=== PATIENT | female | born 1940 | race Caucasian/White ===

== ENCOUNTER 2017-09-22 22:46 | Inpatient (IN) | payer MEDICARE ==
[2017-09-23 01:27] LABS: HEMATOCRIT 39.4 % (36.0-47.0); HEMOGLOBIN 13.6 g/dL (12.0-15.5); MEAN CORPUSCULAR HEMOGLOBIN 31.9 pg (27.0-33.4); MEAN CORPUSCULAR HGB CONC 34.6 g/dL (32.0-36.0); MEAN CORPUSCULAR VOLUME 92 fl (80-97); PLATELET COUNT 199 10^3/uL (150-450); RED BLOOD COUNT 4.28 10^6/uL (3.72-5.28); RED CELL DISTRIBUTION WIDTH 12.7 % (11.5-14.0); WHITE BLOOD COUNT 21.3 10^3/uL (4.0-10.5)
[2017-09-23 01:30] LABS: INTERNATIONAL RATION (INR) 1.06; PROTHROMBIN TIME 14.3 SEC (11.4-15.4)
[2017-09-23 01:41] LABS: ALANINE AMINOTRANSFERASE 30 U/L (9-52); ALBUMIN 3.9 g/dL (3.5-5.0); ALKALINE PHOSPHATASE 72 U/L (38-126); ANION GAP 15 (5-19); ASPARTATE AMINO TRANSFERASE 19 U/L (14-36); BILIRUBIN,DIRECT 0.4 mg/dL (0.0-0.4); BILIRUBIN,TOTAL 0.7 mg/dL (0.2-1.3); BLOOD UREA NITROGEN 19 mg/dL (7-20); CALCIUM 9.2 mg/dL (8.4-10.2); CARBON DIOXIDE 26 mmol/L (22-30); CHLORIDE 96 mmol/L (98-107); GLUCOSE 126 mg/dL (75-110); POTASSIUM 3.4 mmol/L (3.6-5.0); SODIUM 136.5 mmol/L (137-145); TOTAL PROTEIN 6.3 g/dL (6.3-8.2)
[2017-09-23 01:45] LABS: ABSOLUTE LYMPHOCYTES# (MANUAL) 2.1 10^3/uL (0.5-4.7); ABSOLUTE MONOCYTES # (MANUAL) 1.9 10^3/uL (0.1-1.4); BASOPHILS % (MANUAL) 0 % (0-2); EOSINOPHILS % (MANUAL) 1 % (0-6); LYMPHOCYTES % (MANUAL) 10 % (13-45); MONOCYTES % (MANUAL) 9 % (3-13); SEGMENTED NEUTROPHILS % (MAN) 80 % (42-78); TOTAL CELLS COUNTED 100
[2017-09-23] MEDS ORDERED: DIPHENHYDRAMINE HCL 25 MG CAPSULE PO ONE (01:45)
[2017-09-23] MEDS ORDERED: FAMOTIDINE 20 MG TABLET PO ONE (01:45)
[2017-09-23] MEDS ORDERED: PREDNISONE 20 MG TABLET PO ONE (01:45)
[2017-09-23 01:46] LABS: PLATELET COMMENT ADEQUATE; TOXIC GRANULATION SLIGHT
--- NOTE | 2017-09-23 01:49 | ER Document Report ---
ED General - General Chief Complaint: Rash Stated Complaint: RASH Time Seen by Provider: 09/22/17 23:47 Mode of Arrival: Ambulatory Information source: Patient, Relative TRAVEL OUTSIDE OF THE [place] IN LAST 30 DAYS: No - HPI Notes: Patient is a 77-year-old female history of dementia and presents to the emergency department with report of a progressive rash on her body that she has had for the last 4-5 days with mild itching. The patient has had no recent medication changes, but she did eat a large quantity of chocolate on Mother's Day and she has been outside in the yard for an extended period of time, although had most of the areas covered with long pants. The patient has had no mucous membrane lesions or conjunctival erythema. The patient denies any difficulty breathing or fever or cough or congestion or chest pain or nausea or vomiting or diarrhea. No prior skin reactions. No recent insect bites. No exposures to anyone else with a similar rash. Medications quinapril and hydrochlorothiazide, and she has been on these medications for over 4 months. Past Medical History - General Information source: Patient, Parent - Social History Smoking Status: Never Smoker Frequency of alcohol use: None Drug Abuse: None Lives with: Family Family History: None - Patient is a retired nurse. Review of Systems - Review of Systems Notes: REVIEW OF SYSTEMS: CONSTITUTIONAL : Denies fever, chills, or sweats. EENT: Denies eye, ear, throat, or mouth pain or symptoms. Denies nasal or sinus congestion or discharge. Denies throat, tongue, or mouth swelling or difficulty swallowing. CARDIOVASCULAR: Denies chest pain. Denies palpitations or racing or irregular heart beat. Denies ankle edema. RESPIRATORY: Denies cough, cold, or chest congestion. Denies shortness of breath, difficulty breathing, or wheezing. GASTROINTESTINAL: Denies abdominal pain or distention. Denies nausea, vomiting , or diarrhea. Denies blood in vomitus, stools, or per rectum. Denies black, tarry stools. Denies constipation. GENITOURINARY: Denies difficulty urinating, painful urination, burning, frequency, blood in urine, or discharge. FEMALE GENITOURINARY: Denies vaginal bleeding, heavy or abnormal periods, irregular periods. Denies vaginal discharge or odor. MUSCULOSKELETAL: Denies back or neck pain or stiffness. Denies joint pain or swelling. SKIN: No skin abscesses. HEMATOLOGIC : Denies easy bruising or bleeding. LYMPHATIC: Denies swollen, enlarged glands. NEUROLOGICAL: Denies confusion or altered mental status. Denies passing out or loss of consciousness. Denies dizziness or lightheadedness. Denies headache. Denies weakness or paralysis or loss of use of either side. Denies problems with gait or speech. Denies sensory loss, numbness, or tingling. Denies seizures. PSYCHIATRIC: Denies anxiety or stress. Denies depression, suicidal ideation, or homicidal ideation. ALL OTHER SYSTEMS REVIEWED AND NEGATIVE. Dictation was performed using [employer] voice recognition software Physical Exam - Vital signs Vitals: Temp Pulse BP Pulse Ox 98.8 F 84 125/44 L 99 09/22/17 23:09 09/22/17 23:09 09/22/17 23:09 09/22/17 23:09 - Notes Notes: PHYSICAL EXAMINATION: GENERAL: Well-appearing, well-nourished and in no acute distress. HEAD: Atraumatic, normocephalic. EYES: Pupils equal round and reactive to light, extraocular movements intact, conjunctiva are normal. ENT: Nares patent, oropharynx clear without exudates. Moist mucous membranes. NECK: Normal range of motion, supple without lymphadenopathy LUNGS: Breath sounds clear to auscultation bilaterally and equal. No wheezes rales or rhonchi. HEART: Regular rate and rhythm without murmurs ABDOMEN: Soft, nontender, nondistended abdomen. No guarding, no rebound. No masses appreciated. Female : deferred Musculoskeletal: Normal range of motion, no pitting or edema. No cyanosis. NEUROLOGICAL: Cranial nerves grossly intact. Normal speech, normal gait. Normal sensory, motor exams patient is somewhat confused to the year, and her daughter reports this is her baseline. PSYCH: Normal mood, normal affect. SKIN: Warm, Dry, normal turgor, minimally blanchable skin rash on the face trunk and extremities of a maculopapular skin eruption. There are no distal splinter lesions or gross petechial lesions. There is no cellulitis. There is no obvious or urticaria. There is no evidence for abscess or significant breakdown. The patient is seen minimally scratching at the areas. Course - Re-evaluation Re-evalutation: 09/23/17 01:51 Patient was given prednisone, Benadryl and Pepcid. Question allergic reaction, but the diffuse widespread rash is of concern. Lab studies including CBC PT/INR and a CMP and lactic acid are ordered. Also a urine specimen is ordered. There is no clinical suggestion for Liang-Anoop syndrome or obvious TTP/ITP , with no distal splinter lesions or mucous membrane lesions. Patient has stable blood pressure. One questions reaction to quinapril or hydrochlorothiazide. There is no evidence for angioedema or respiratory compromise. WBC count elevated. Concern for infection vs early sepsis. Blood cultures taken. Discussed with pt and family and they were in agreement with admission for further eval and mgmt. Discussed with Hospitalist Dr. Ortiz, who agreed to admit the pt for further eval and mgmt. 09/23/17 02:14 - Vital Signs Vital signs: Temp Pulse Resp BP Pulse Ox 98.8 F 84 125/44 L 99 09/22/17 23:09 09/22/17 23:09 09/22/17 23:09 09/22/17 23:09 - Laboratory Result Diagrams: 09/23/17 01:12 09/23/17 01:12 Laboratory results interpreted by me: 09/23/17 09/23/17 09/23/17 01:12 01:12 01:50 WBC 21.3 H Seg Neuts % (Manual) 80 H Lymphocytes % (Manual) 10 L Abs Neuts (Manual) 17.0 H Abs Monocytes (Manual) 1.9 H Sodium 136.5 L Potassium 3.4 L Chloride 96 L Glucose 126 H Urine Urobilinogen 2.0 H Ur Leukocyte Esterase SMALL H Critical Care Note - Critical Care Note Total time excluding time spent on procedures (mins): 37 Discharge - Discharge Clinical Impression: Allergic reaction Qualifiers: Encounter type: initial encounter Qualified Code(s): T78.40XA - Allergy, unspecified, initial encounter Condition: Stable Disposition: ADMITTED OBSERVATION Admitting Provider: Hospitalist Unit Admitted: Medical Floor
[2017-09-23 01:59] LABS: APPEARANCE,URINE CLEAR; BILIRUBIN,URINE NEGATIVE (NEGATIVE); COLOR,URINE YELLOW; GLUCOSE, URINE NEGATIVE (NEGATIVE); KETONES,URINE NEGATIVE (NEGATIVE); LEUKOCYTE ESTERASE,URINE SMALL (NEGATIVE); NITRITE,URINE NEGATIVE (NEGATIVE); PROTEIN,URINE NEGATIVE (NEGATIVE); URINE SPECIFIC GRAVITY 1.008
[2017-09-23] MEDS ORDERED: ACETAMINOPHEN 325 MG TABLET PO PRN (02:22)
--- NOTE | 2017-09-23 02:41 | PDOC H&P ---
History of Present Illness History of Present Illness: CHINTAN PEGUERO is a 77 year old female presents with 3 days history of diffuse rash. The rash is not itching and is not associated with fever. The rash is diffuse petechial nonblanching rash which involves her palms and soles. There is no mucous membrane or conjunctival involvement. Patient denies cramping or insect bite. She takes SELENE inhibitor and hydrochlorothiazide for her hypertension. No history of shortness of breath, congestion, tongue swelling, nausea, vomiting or diarrhea. No urinary complaints. Her blood work is remarkable for leukocytosis of 21,000. Past Medical History Cardiac Medical History: Reports: Hypertension Social History Lives with: Family Smoking Status: Never Smoker Frequency of Alcohol Use: None Hx Recreational Drug Use: No Drugs: None - Advance Directive Resuscitation Status: Full Code Family History Family History: None Parental Family History Reviewed: Yes Children Family History Reviewed: Yes Sibling(s) Family History Reviewed.: Yes Review of Systems Constitutional: PRESENT: as per HPI Eyes: PRESENT: as per HPI Cardiovascular: PRESENT: as per HPI Respiratory: PRESENT: as per HPI Gastrointestinal: PRESENT: as per HPI Neurological: PRESENT: as per HPI Psychiatric: PRESENT: as per HPI Physical Exam Vital Signs: Temp Pulse Resp BP Pulse Ox 98.8 F 84 125/44 L 99 09/22/17 23:09 09/22/17 23:09 09/22/17 23:09 09/22/17 23:09 Intake & Output 09/21/17 09/22/17 09/23/17 06:59 06:59 06:59 Weight 66.3 kg General appearance: PRESENT: no acute distress Head exam: PRESENT: atraumatic, normocephalic Eye exam: PRESENT: conjunctiva pink, EOMI, PERRLA. ABSENT: scleral icterus Respiratory exam: PRESENT: clear to auscultation cipriano. ABSENT: rales, rhonchi, wheezes Cardiovascular exam: PRESENT: RRR. ABSENT: diastolic murmur, rubs, systolic murmur GI/Abdominal exam: PRESENT: normal bowel sounds, soft. ABSENT: distended, guarding, mass, organolmegaly, rebound, tenderness Neurological exam: PRESENT: alert, awake Psychiatric exam: PRESENT: normal mood Skin exam: PRESENT: other - Diffuse nonblanching petechial rash which involves also the palms and soles. Results Laboratory Results: 09/23/17 01:12 09/23/17 01:12 09/23/17 09/23/17 09/23/17 01:12 01:12 01:12 WBC 21.3 H RBC 4.28 Hgb 13.6 Hct 39.4 MCV 92 MCH 31.9 MCHC 34.6 RDW 12.7 Plt Count 199 Seg Neutrophils % Not Reportable Lymphocytes % Not Reportable Monocytes % Not Reportable Eosinophils % Not Reportable Basophils % Not Reportable Absolute Neutrophils Not Reportable Absolute Lymphocytes Not Reportable Absolute Monocytes Not Reportable Absolute Eosinophils Not Reportable Absolute Basophils Not Reportable Sodium 136.5 L Potassium 3.4 L Chloride 96 L Carbon Dioxide 26 Anion Gap 15 BUN 19 Creatinine 0.86 Est GFR ( Amer) > 60 Est GFR (Non-Af Amer) > 60 Glucose 126 H Lactic Acid 1.0 Calcium 9.2 Total Bilirubin 0.7 AST 19 ALT 30 Alkaline Phosphatase 72 Total Protein 6.3 Albumin 3.9 Urine Color Urine Appearance Urine pH Ur Specific Gobles Urine Protein Urine Glucose (UA) Urine Ketones Urine Blood Urine Nitrite Ur Leukocyte Esterase Urine WBC (Auto) Urine RBC (Auto) 09/23/17 01:50 WBC RBC Hgb Hct MCV MCH MCHC RDW Plt Count Seg Neutrophils % Lymphocytes % Monocytes % Eosinophils % Basophils % Absolute Neutrophils Absolute Lymphocytes Absolute Monocytes Absolute Eosinophils Absolute Basophils Sodium Potassium Chloride Carbon Dioxide Anion Gap BUN Creatinine Est GFR ( Amer) Est GFR (Non-Af Amer) Glucose Lactic Acid Calcium Total Bilirubin AST ALT Alkaline Phosphatase Total Protein Albumin Urine Color YELLOW Urine Appearance CLEAR Urine pH 6.0 Ur Specific Gobles 1.008 Urine Protein NEGATIVE Urine Glucose (UA) NEGATIVE Urine Ketones NEGATIVE Urine Blood NEGATIVE Urine Nitrite NEGATIVE Ur Leukocyte Esterase SMALL H Urine WBC (Auto) 5 Urine RBC (Auto) 0 Assessment & Plan - Diagnosis (1) Petechial rash Is this a current diagnosis for this admission?: Yes Plan: Etiology unclear. Most probably adverse drug reaction. We will DC her SELENE inhibitor and hydrochlorothiazide. I started her on hydralazine. Benadryl and prednisone (2) Hypertension Is this a current diagnosis for this admission?: Yes Plan: Hydralazine 50 mg p.o. 3 times daily (3) Dementia Qualifiers: Dementia behavioral disturbance: with behavioral disturbance Is this a current diagnosis for this admission?: Yes Plan: Continue her home medication - Time Critical Time spent with patient: 25-34 minutes
[2017-09-23] MEDS ORDERED: NORMAL SALINE 1000 ML 1,000 ML IV PRN (02:42)
[2017-09-23] MEDS ORDERED: HYDRALAZINE HCL 50 MG TABLET PO ONE (02:45)
[2017-09-23 04:50] LABS: HEMATOCRIT 37.1 % (36.0-47.0); MEAN CORPUSCULAR HEMOGLOBIN 31.9 pg (27.0-33.4); MEAN CORPUSCULAR HGB CONC 34.9 g/dL (32.0-36.0); MEAN CORPUSCULAR VOLUME 91 fl (80-97); PLATELET COUNT 208 10^3/uL (150-450); RED BLOOD COUNT 4.07 10^6/uL (3.72-5.28); RED CELL DISTRIBUTION WIDTH 12.8 % (11.5-14.0); WHITE BLOOD COUNT 19.6 10^3/uL (4.0-10.5)
[2017-09-23 05:06] LABS: ANION GAP 12 (5-19); BLOOD UREA NITROGEN 16 mg/dL (7-20); CALCIUM 8.9 mg/dL (8.4-10.2); CARBON DIOXIDE 26 mmol/L (22-30); CHLORIDE 95 mmol/L (98-107); GLUCOSE 134 mg/dL (75-110); POTASSIUM 3.4 mmol/L (3.6-5.0); SODIUM 132.7 mmol/L (137-145)
[2017-09-23] MEDS: LANSOPRAZOLE 30 MG TAB.RAP.DR PO SCH (05:41)
[2017-09-23] MEDS: PREDNISONE 20 MG TABLET PO SCH (08:53)
[2017-09-23] MEDS: ENOXAPARIN SODIUM INJ 40 MG/0.4 ML DISP.SYRIN SUBCUT SCH (09:22)
--- NOTE | 2017-09-23 11:21 | PDOC PROGRESS REPORT ---
Subjective Progress Note for:: 09/23/17 Subjective:: Patient does not look critically ill She does not have a fever ; the generalized rash is persistent It is not very pruritic Patient is extremely confused but awake and appears very comfortable Reason For Visit: DIFFUSE SKIN RASH, LEUKOCYTOSIS Physical Exam Vital Signs: Temp Pulse Resp BP Pulse Ox 98.1 F 98 16 116/76 97 09/23/17 07:15 09/23/17 07:15 09/23/17 07:15 09/23/17 07:15 09/23/17 07:15 She is awake confused Skin there is a generalized petechial rash involving the whole body Therapeutic daily on non-palpable macular lesions that are confluent red Particular rash also involves palms and soles Patient has no palpable adenopathies Pupils are PERRLA extraocular motor intact nonicteric Neck supple no nodes no bruits Chest heart regular rhythm grade 2/6 murmur Lungs are clear Abdomen is soft nontender no organomegaly normal bowel sounds Extremities no edema Rash diffuse petechial rash as described above Results Laboratory Results: 09/23/17 04:40 09/23/17 04:40 09/23/17 09/23/17 04:40 04:40 WBC 19.6 H RBC 4.07 Hgb 13.0 Hct 37.1 MCV 91 MCH 31.9 MCHC 34.9 RDW 12.8 Plt Count 208 Sodium 132.7 L Potassium 3.4 L Chloride 95 L Carbon Dioxide 26 Anion Gap 12 BUN 16 Creatinine 0.74 Est GFR ( Amer) > 60 Est GFR (Non-Af Amer) > 60 Glucose 134 H Calcium 8.9 Assessment & Plan - Diagnosis (1) Dementia Qualifiers: Dementia behavioral disturbance: with behavioral disturbance Is this a current diagnosis for this admission?: Yes (2) Hypertension Qualifiers: Hypertension type: essential hypertension Qualified Code(s): I10 - Essential (primary) hypertension Is this a current diagnosis for this admission?: Yes (3) Petechial rash Is this a current diagnosis for this admission?: Yes Plan: 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
[2017-09-23] MEDS ORDERED: HYDRALAZINE HCL 50 MG TABLET PO SCH ×3 (11:45→14:00)
[2017-09-23] MEDS ORDERED: HYDRALAZINE HCL 25 MG TABLET PO ONE (12:30)
[2017-09-23] MEDS: CEFTRIAXONE 2 GM/D5W RTU 2 GM/50 ML RTUPB IV SCH (14:21)
[2017-09-23] MEDS ORDERED: HALOPERIDOL LACTATE INJ 5 MG/1 ML VIAL ONE (19:40)
[2017-09-23] MEDS ORDERED: HALOPERIDOL LACTATE INJ 5 MG/1 ML VIAL IM ONE (20:00)
[2017-09-23] MEDS: HYDRALAZINE HCL 25 MG TABLET PO SCH (21:38)
[2017-09-24 05:15] LABS: HEMOGLOBIN 13.3 g/dL (12.0-15.5); MEAN CORPUSCULAR HGB CONC 34.9 g/dL (32.0-36.0); MEAN CORPUSCULAR VOLUME 92 fl (80-97); PLATELET COUNT 231 10^3/uL (150-450); RED BLOOD COUNT 4.15 10^6/uL (3.72-5.28); RED CELL DISTRIBUTION WIDTH 12.7 % (11.5-14.0); WHITE BLOOD COUNT 22.6 10^3/uL (4.0-10.5)
[2017-09-24 05:36] LABS: ANION GAP 14 (5-19); BLOOD UREA NITROGEN 12 mg/dL (7-20); CALCIUM 9.8 mg/dL (8.4-10.2); CARBON DIOXIDE 25 mmol/L (22-30); CHLORIDE 102 mmol/L (98-107); GLUCOSE 105 mg/dL (75-110); POTASSIUM 3.5 mmol/L (3.6-5.0); SODIUM 140.6 mmol/L (137-145)
[2017-09-24] MEDS: LANSOPRAZOLE 30 MG TAB.RAP.DR PO SCH (06:13)
[2017-09-24] MEDS: PREDNISONE 20 MG TABLET PO SCH (09:54)
[2017-09-24] MEDS: ENOXAPARIN SODIUM INJ 40 MG/0.4 ML DISP.SYRIN SUBCUT SCH (09:55)
--- NOTE | 2017-09-24 11:34 | PDOC PROGRESS REPORT ---
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 Skin Biopsy requested. Physical Exam Vital Signs: Temp Pulse Resp BP Pulse Ox 98.3 F 72 20 114/54 L 98 09/24/17 07:23 09/24/17 07:23 09/24/17 07:23 09/24/17 07:23 09/24/17 07:23 Intake & Output 09/23/17 09/24/17 09/25/17 06:59 06:59 06:59 Intake Total 1985 Balance 1985 General appearance: PRESENT: no acute distress, other - confused Skin exam: PRESENT: other - diffuse maculopapular rash face to extremity sparing palms Results Laboratory Results: 09/24/17 04:41 09/24/17 04:41 09/23/17 09/24/17 09/24/17 11:40 04:41 04:41 WBC 22.6 H RBC 4.15 Hgb 13.3 Hct 38.0 MCV 92 MCH 32.0 MCHC 34.9 RDW 12.7 Plt Count 231 Sodium 140.6 Potassium 3.5 L Chloride 102 Carbon Dioxide 25 Anion Gap 14 BUN 12 Creatinine 0.54 Est GFR ( Amer) > 60 Est GFR (Non-Af Amer) > 60 Glucose 105 Calcium 9.8 C-Reactive Protein 51.9 H Assessment & Plan - Plan Summary Plan Summary: A/ Leukocytosis Diffuse skin rash 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
[2017-09-24] MEDS: HYDRALAZINE HCL 25 MG TABLET PO SCH ×2 (12:53→21:45)
[2017-09-24] MEDS: CEFTRIAXONE 2 GM/D5W RTU 2 GM/50 ML RTUPB IV SCH (13:58)
--- NOTE | 2017-09-24 14:18 | PDOC PROGRESS REPORT ---
Subjective Progress Note for:: 09/24/17 Subjective:: Admitted with a diffuse erythematous rash with suspicion of a leukocytoclastic vasculitis Reason For Visit: PETECHIAL RASH,LEUKOCYTOSIS,DEMENTIA Physical Exam Vital Signs: Temp Pulse Resp BP Pulse Ox 97.5 F 69 20 126/59 H 98 09/24/17 11:35 09/24/17 11:35 09/24/17 11:35 09/24/17 11:35 09/24/17 11:35 Intake & Output 09/23/17 09/24/17 09/25/17 06:59 06:59 06:59 Intake Total 1985 Balance 1985 General appearance: PRESENT: no acute distress, well-developed Head exam: PRESENT: atraumatic Respiratory exam: PRESENT: clear to auscultation cipriano. ABSENT: rales, rhonchi, wheezes Cardiovascular exam: PRESENT: RRR, +S1, +S2, systolic murmur GI/Abdominal exam: PRESENT: normal bowel sounds, soft. ABSENT: distended, guarding, mass, organolmegaly, rebound, tenderness Rectal exam: PRESENT: deferred Musculoskeletal exam: PRESENT: ambulatory, full ROM Neurological exam: PRESENT: alert, other - confused Skin exam: PRESENT: erythema, rash - generalized maculopapular. ABSENT: urticaria, vesicles Results Laboratory Results: 09/24/17 04:41 09/24/17 04:41 09/24/17 09/24/17 04:41 04:41 WBC 22.6 H RBC 4.15 Hgb 13.3 Hct 38.0 MCV 92 MCH 32.0 MCHC 34.9 RDW 12.7 Plt Count 231 Sodium 140.6 Potassium 3.5 L Chloride 102 Carbon Dioxide 25 Anion Gap 14 BUN 12 Creatinine 0.54 Est GFR ( Amer) > 60 Est GFR (Non-Af Amer) > 60 Glucose 105 Calcium 9.8 Assessment & Plan - Diagnosis (1) Hypertension Qualifiers: Hypertension type: essential hypertension Qualified Code(s): I10 - Essential (primary) hypertension Is this a current diagnosis for this admission?: Yes (2) Hyponatremia Is this a current diagnosis for this admission?: Yes Plan: Sodium has corrected with normal saline (3) Leukocytosis Is this a current diagnosis for this admission?: Yes Plan: Patient is on ceftriaxone empirically. There is no specific source of infection at this time. He is also on steroids presumably for possible allergic dermatitis (4) Petechial rash Is this a current diagnosis for this admission?: Yes Plan: Generalized erythematous diffuse rash involving extremities as well as anterior abdominal wall and face Rheumatoid factor is negative but CRP is slightly elevated and ESR is within normal. 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 She also has normal liver function test and so the possibility of hepatitis C is low and there is no evidence of nephritis with negative proteinuria. Patient is scheduled for a skin biopsy tomorrow and hopefully shed some light as to the etiology of her generalized rash WBC is worse likely from the steroids
[2017-09-25] MEDS: LANSOPRAZOLE 30 MG TAB.RAP.DR PO SCH (06:30)
[2017-09-25] MEDS: NORMAL SALINE 1000 ML 1,000 ML IV PRN (06:45)
[2017-09-25] MEDS: HYDRALAZINE HCL 25 MG TABLET PO SCH ×2 (10:14→22:14)
[2017-09-25] MEDS: PREDNISONE 20 MG TABLET PO SCH (10:14)
[2017-09-25] MEDS: ENOXAPARIN SODIUM INJ 40 MG/0.4 ML DISP.SYRIN SUBCUT SCH (10:14)
[2017-09-25] MEDS: CEFTRIAXONE 2 GM/D5W RTU 2 GM/50 ML RTUPB IV SCH (13:44)
--- NOTE | 2017-09-25 15:26 | Operative Report ---
Operative Report DATE OF SURGERY: 09/25/17 PREOPERATIVE DIAGNOSIS: Widespread urticarial rash POSTOPERATIVE DIAGNOSIS: Same OPERATION: Full-thickness excisional skin biopsy right shoulder SURGEON: GUALBERTO MAXWELL ANESTHESIA: Local TISSUE REMOVED OR ALTERED: Right skin biopsy; bisected and submitted to pathology in 2 containers COMPLICATIONS: None ESTIMATED BLOOD LOSS: Minimal INTRAOPERATIVE FINDINGS: See below PROCEDURE: Consent was provided by the patient's granddaughter due to the patient having dementia. Right shoulder was exposed, suitable site for biopsy chosen. Skin prep with Betadine and anesthetized 1% plain lidocaine. Surgical plan surgical timeout conducted. Small transversely oriented elliptical incision was made with a 15 blade. It was approximately 1.5 cm long. The specimen was excised down to the subcutaneous tissue. The specimen was bisected, with fragments submitted in separate containers 1 with saline 1 without saline. Closed with interrupted 3-0 Ethilon suture. Benzoin Steri- Strips applied. Postop procedure I spoke with primary care team as well as Dr. Norman, pathologist, about processing the specimen. Suture can be removed in approximately 10 days.
[2017-09-25] MEDS: DIPHENHYDRAMINE HCL 25 MG CAPSULE PO PRN (16:19)
--- NOTE | 2017-09-25 16:29 | PDOC PROGRESS REPORT ---
Subjective Progress Note for:: 09/25/17 Subjective:: Admitted with a diffuse erythematous rash with suspicion of a leukocytoclastic vasculitis She is status post skin biopsy today. Echocardiogram is also pending today Reason For Visit: PETECHIAL RASH,LEUKOCYTOSIS,DEMENTIA Physical Exam Vital Signs: Temp Pulse Resp BP Pulse Ox 98.0 F 72 16 113/90 H 95 09/25/17 12:12 09/25/17 12:12 09/25/17 12:12 09/25/17 12:12 09/25/17 12:12 Intake & Output 09/24/17 09/25/17 09/26/17 06:59 06:59 06:59 Intake Total 1985 415 Balance 1985 415 Weight 66.3 kg General appearance: PRESENT: no acute distress, well-developed, well-nourished Head exam: PRESENT: atraumatic, normocephalic Eye exam: PRESENT: conjunctiva pink. ABSENT: scleral icterus Ear exam: PRESENT: normal external ear exam Mouth exam: PRESENT: moist, tongue midline Neck exam: ABSENT: carotid bruit, JVD, lymphadenopathy, thyromegaly Respiratory exam: PRESENT: clear to auscultation cipriano. ABSENT: rales, rhonchi, wheezes Cardiovascular exam: PRESENT: RRR. ABSENT: diastolic murmur, rubs, systolic murmur Pulses: PRESENT: normal dorsalis pedis pul Vascular exam: PRESENT: normal capillary refill GI/Abdominal exam: PRESENT: normal bowel sounds, soft. ABSENT: distended, guarding, mass, organolmegaly, rebound, tenderness Rectal exam: PRESENT: deferred Extremities exam: PRESENT: full ROM. ABSENT: calf tenderness, clubbing, pedal edema Neurological exam: PRESENT: alert, awake, oriented to situation, CN II-XII grossly intact. ABSENT: motor sensory deficit Psychiatric exam: PRESENT: appropriate affect, normal mood. ABSENT: homicidal ideation, suicidal ideation Skin exam: PRESENT: dry, erythema - Generalized, intact, rash - Papular rash, warm. ABSENT: cyanosis, urticaria, vesicles Results Laboratory Results: 09/24/17 04:41 09/24/17 04:41 Assessment & Plan - Diagnosis (1) Hypertension Qualifiers: Hypertension type: essential hypertension Qualified Code(s): I10 - Essential (primary) hypertension Is this a current diagnosis for this admission?: Yes Plan: Controlled (2) Hyponatremia Is this a current diagnosis for this admission?: Yes Plan: Sodium has corrected with normal saline (3) Leukocytosis Is this a current diagnosis for this admission?: Yes Plan: We will recheck labs in a.m. She is on empiric antibiotics (4) Petechial rash Is this a current diagnosis for this admission?: Yes Plan: Continue local measures (5) Hypokalemia Is this a current diagnosis for this admission?: Yes Plan: Replaced - Time Time Spent with patient: 15-24 minutes Medications reviewed and adjusted accordingly: Yes Anticipated discharge: SNF Within: within 48 hours - Inpatient Certification Based on my medical assessment, after consideration of the patient's comorbidities, presenting symptoms, or acuity I expect that the services needed warrant INPATIENT care.: Yes Medical Necessity: Need for IV Antibiotics
--- NOTE | 2017-09-25 16:54 | XCELERA REPORT ---
[address] [address] Transthoracic Echocardiogram Report Name: CHINTAN PEGUERO Age: 77 yrs Gender: Female : 1940 Patient Status: Inpatient Patient Location: [address] [place] [address] Study Date: 09/25/2017 11:21 AM Procedure: A two-dimensional transthoracic echocardiogram with color flow and Doppler was performed. The study was technically difficult with many images being suboptimal in quality. Reason For Study: ENDOCARDITIS History: ENDOCARDITIS. Ordering Physician: JARAD ERWIN Performed By: Lily Clay Interpretation Summary No gross vegetations seen.Recommend SILVESTRE. LV EF is 65% The left ventricle is normal in size. There is normal left ventricular wall thickness. Left ventricular systolic function is normal. Doppler measurements suggest impaired left ventricular relaxation, which is associated with grade I/IV or mild diastolic dysfunction The left ventricular wall motion is normal. The left atrial size is normal. There is no evidence of mitral valve prolapse. There is no mitral valve stenosis. There is a mild amount of mitral regurgitation There is no aortic valve stenosis There is no LVOT obstruction. No aortic regurgitation is present. There is no tricuspid stenosis. Perhaps mild TR.Mild pulmonary hypertension.RVSP is 36 mm of Hg , with RA mean of 10/ There is no pericardial effusion. No gross vegetations seen.Recommend SILVESTRE. MMode/2D Measurements & Calculations RVDd: 2.8 cm LVIDd: 3.6 cm FS: 42.5 % Ao root diam: 2.6 cm IVSd: 1.1 cm LVIDs: 2.1 cm EDV(Teich): 55.1 ml Ao root area: 5.4 cm2 LVPWd: 1.5 cm ESV(Teich): 14.1 ml EF(Teich): 74.4 % LVOT diam: 1.6 cm LVOT area: 2.0 cm2 Doppler Measurements & Calculations MV E max nadia: MV dec slope: Ao V2 max: LV V1 max P.9 cm/sec 185.4 cm/sec 7.3 mmHg MV A max nadia: 459.7 cm/sec2 Ao max PG: LV V1 max: 114.5 cm/sec MV dec time: 13.8 mmHg 134.9 cm/sec MV E/A: 0.97 0.24 sec JAMES(V,D): 1.4 cm2 PA V2 max: TR max nadia: 105.0 cm/sec 252.4 cm/sec PA max P.6 mmHgTR max P.5 mmHg Left Ventricle The left ventricle is normal in size. There is normal left ventricular wall thickness. LV EF is 65%. Left ventricular systolic function is normal. Doppler measurements suggest impaired left ventricular relaxation, which is associated with grade I/IV or mild diastolic dysfunction. The left ventricular wall motion is normal. There is no thrombus. Right Ventricle The right ventricle is not well visualized secondary to technical limitations. Atria The right atrium is normal. The left atrial size is normal. Mitral Valve There is no evidence of mitral valve prolapse. There is no vegetation seen on the mitral valve. There is no mitral valve stenosis. There is a mild amount of mitral regurgitation. Aortic Valve There is no aortic valvular vegetation. There is no aortic valve stenosis. There is no LVOT obstruction. No aortic regurgitation is present. Tricuspid Valve There is no tricuspid stenosis. Perhaps mild TR.Mild pulmonary hypertension.RVSP is 36 mm of Hg , with RA mean of 10/. Pulmonic Valve There is no pulmonic valvular stenosis. There is no pulmonic valvular regurgitation. Great Vessels The aortic root is not well visualized. Effusions There is no pericardial effusion. : JARAD ERWIN > Yoselyn Salinas
[2017-09-26] MEDS: LANSOPRAZOLE 30 MG TAB.RAP.DR PO SCH (05:53)
[2017-09-26 05:55] LABS: ABSOLUTE BASOPHILS # (AUTO) 0.1 10^3/uL (0.0-0.2); ABSOLUTE LYMPHOCYTES (AUTO) 2.3 10^3/uL (0.5-4.7); ABSOLUTE NEUT (AUTO) 13.7 10^3/uL (1.7-8.2); BASOPHILS % (AUTO) 0.3 % (0-2); EOSINOPHILS % (AUTO) 0.2 % (0-6); HEMATOCRIT 37.5 % (36.0-47.0); HEMOGLOBIN 12.9 g/dL (12.0-15.5); LYMPHOCYTES % (AUTO) 12.9 % (13-45); MEAN CORPUSCULAR HEMOGLOBIN 31.8 pg (27.0-33.4); MEAN CORPUSCULAR HGB CONC 34.4 g/dL (32.0-36.0); MEAN CORPUSCULAR VOLUME 92 fl (80-97); PLATELET COUNT 238 10^3/uL (150-450); RED BLOOD COUNT 4.06 10^6/uL (3.72-5.28); RED CELL DISTRIBUTION WIDTH 12.6 % (11.5-14.0); SEGMENTED NEUTROPHILS % (AUTO) 75.6 % (42-78); TOTAL CELLS COUNTED % (AUTO) 100 %; WHITE BLOOD COUNT 18.1 10^3/uL (4.0-10.5)
[2017-09-26 06:16] LABS: ANION GAP 14 (5-19); BLOOD UREA NITROGEN 9 mg/dL (7-20); CALCIUM 9.3 mg/dL (8.4-10.2); CARBON DIOXIDE 27 mmol/L (22-30); CHLORIDE 103 mmol/L (98-107); GLUCOSE 105 mg/dL (75-110); POTASSIUM 3.5 mmol/L (3.6-5.0); SODIUM 143.7 mmol/L (137-145)
[2017-09-26] MEDS: PREDNISONE 20 MG TABLET PO SCH (09:13)
[2017-09-26] MEDS: ENOXAPARIN SODIUM INJ 40 MG/0.4 ML DISP.SYRIN SUBCUT SCH (09:13)
[2017-09-26] MEDS: HYDRALAZINE HCL 25 MG TABLET PO SCH ×2 (09:13→22:38)
[2017-09-26] MEDS: CEFTRIAXONE 2 GM/D5W RTU 2 GM/50 ML RTUPB IV SCH (13:25)
[2017-09-26] MEDS: DIPHENHYDRAMINE HCL 25 MG CAPSULE PO PRN (13:25)
[2017-09-26] MEDS ORDERED: LACTULOSE SYRUP 20 GM/30 ML UDCUP PO PRN (18:23)
[2017-09-26] MEDS ORDERED: DOCUSATE SODIUM 100 MG CAPSULE PO PRN (18:23)
[2017-09-26] MEDS ORDERED: POLYETHYLENE GLYCOL 3350 POWDER 17 GM/1 PACKET PO PRN (18:23)
--- NOTE | 2017-09-26 18:23 | PDOC PROGRESS REPORT ---
Subjective Progress Note for:: 09/26/17 Subjective:: Admitted with a diffuse erythematous rash with suspicion of a leukocytoclastic vasculitis She is status post skin biopsy result pending Echocardiogram is also pending today Reason For Visit: LEUKOCYTOCLASTIC VASCULITIS, PETECHIAL RASH, Physical Exam Vital Signs: Temp Pulse Resp BP Pulse Ox 98.7 F 64 18 139/64 H 95 09/26/17 15:34 09/26/17 15:34 09/26/17 15:34 09/26/17 15:34 09/26/17 15:34 General appearance: PRESENT: no acute distress Head exam: PRESENT: atraumatic Eye exam: PRESENT: conjunctiva pink, PERRLA. ABSENT: scleral icterus Ear exam: PRESENT: normal external ear exam Mouth exam: PRESENT: moist, tongue midline Neck exam: ABSENT: carotid bruit, JVD, lymphadenopathy, thyromegaly Respiratory exam: PRESENT: clear to auscultation cipriano. ABSENT: rales, rhonchi, wheezes Cardiovascular exam: PRESENT: RRR, +S1, +S2. ABSENT: diastolic murmur, rubs, systolic murmur Pulses: PRESENT: normal dorsalis pedis pul Vascular exam: PRESENT: normal capillary refill GI/Abdominal exam: PRESENT: normal bowel sounds, soft. ABSENT: distended, guarding, mass, organolmegaly, rebound, tenderness Rectal exam: PRESENT: deferred Extremities exam: PRESENT: full ROM. ABSENT: calf tenderness, clubbing, pedal edema Neurological exam: PRESENT: alert, awake, other - confused. ABSENT: motor sensory deficit Psychiatric exam: PRESENT: appropriate affect. ABSENT: homicidal ideation, suicidal ideation Skin exam: PRESENT: dry, erythema, rash - generalized maculopapular rash, no new crops seen, warm. ABSENT: cyanosis Results Laboratory Results: Labs- All tests 24 hr 09/26/17 09/26/17 05:24 05:24 WBC 18.1 H RBC 4.06 Hgb 12.9 Hct 37.5 MCV 92 MCH 31.8 MCHC 34.4 RDW 12.6 Plt Count 238 Seg Neutrophils % 75.6 Lymphocytes % 12.9 L Monocytes % 11.0 Eosinophils % 0.2 Basophils % 0.3 Absolute Neutrophils 13.7 H Absolute Lymphocytes 2.3 Absolute Monocytes 2.0 H Absolute Eosinophils 0.0 Absolute Basophils 0.1 Sodium 143.7 Potassium 3.5 L Chloride 103 Carbon Dioxide 27 Anion Gap 14 BUN 9 Creatinine 0.51 L Est GFR ( Amer) > 60 Est GFR (Non-Af Amer) > 60 Glucose 105 Calcium 9.3 Assessment & Plan - Diagnosis (1) Petechial rash Is this a current diagnosis for this admission?: Yes Plan: Continue local measures. She is still on Prednisone, the rash is slowly resolving Skin biopsy result is pending (2) Hypertension Qualifiers: Hypertension type: essential hypertension Qualified Code(s): I10 - Essential (primary) hypertension Is this a current diagnosis for this admission?: Yes Plan: stable (3) Hyponatremia Is this a current diagnosis for this admission?: Yes Plan: Resolved (4) Leukocytosis Is this a current diagnosis for this admission?: Yes Plan: Mildly improve. This could be inflammatory versus infectious. CRP is 51, ESR is normal (5) Hypokalemia Is this a current diagnosis for this admission?: Yes Plan: Corrected - Time Time Spent with patient: 15-24 minutes Medications reviewed and adjusted accordingly: Yes Anticipated discharge: SNF Within: within 48 hours - Inpatient Certification Based on my medical assessment, after consideration of the patient's comorbidities, presenting symptoms, or acuity I expect that the services needed warrant INPATIENT care.: Yes Medical Necessity: Need for IV Antibiotics, Risk of Complication if Not Cared For in Hospital
[2017-09-27] MEDS: NORMAL SALINE 1000 ML 1,000 ML IV PRN ×3 (01:13→20:59)
[2017-09-27 05:44] LABS: ABSOLUTE EOSINOPHILS # (AUTO) 0.1 10^3/uL (0.0-0.6); ABSOLUTE LYMPHOCYTES (AUTO) 2.4 10^3/uL (0.5-4.7); ABSOLUTE MONOCYTES (AUTO) 1.7 10^3/uL (0.1-1.4); ABSOLUTE NEUT (AUTO) 13.4 10^3/uL (1.7-8.2); BASOPHILS % (AUTO) 0.2 % (0-2); EOSINOPHILS % (AUTO) 0.3 % (0-6); HEMATOCRIT 36.2 % (36.0-47.0); HEMOGLOBIN 12.6 g/dL (12.0-15.5); LYMPHOCYTES % (AUTO) 13.5 % (13-45); MEAN CORPUSCULAR HGB CONC 34.7 g/dL (32.0-36.0); MEAN CORPUSCULAR VOLUME 92 fl (80-97); MONOCYTES % (AUTO) 9.6 % (3-13); PLATELET COUNT 242 10^3/uL (150-450); RED BLOOD COUNT 3.92 10^6/uL (3.72-5.28); RED CELL DISTRIBUTION WIDTH 12.6 % (11.5-14.0); SEGMENTED NEUTROPHILS % (AUTO) 76.4 % (42-78); TOTAL CELLS COUNTED % (AUTO) 100 %; WHITE BLOOD COUNT 17.5 10^3/uL (4.0-10.5)
[2017-09-27] MEDS: LANSOPRAZOLE 30 MG TAB.RAP.DR PO SCH (06:15)
[2017-09-27] MEDS: ENOXAPARIN SODIUM INJ 40 MG/0.4 ML DISP.SYRIN SUBCUT SCH (10:54)
[2017-09-27] MEDS: HYDRALAZINE HCL 25 MG TABLET PO SCH ×2 (10:55→22:10)
[2017-09-27] MEDS: PREDNISONE 20 MG TABLET PO SCH (10:55)
--- NOTE | 2017-09-27 14:49 | PDOC PROGRESS REPORT ---
Subjective Progress Note for:: 09/27/17 Subjective:: Admitted with a diffuse erythematous rash with suspicion of a leukocytoclastic vasculitis She is status post skin biopsy result noted- no significant findings Echocardiogram noted, EF 65% Reason For Visit: LEUKOCYTOCLASTIC VASCULITIS, PETECHIAL RASH, Physical Exam Vital Signs: Temp Pulse Resp BP Pulse Ox 98.6 F 59 L 16 137/63 H 98 09/26/17 23:31 09/26/17 23:31 09/26/17 23:31 09/26/17 23:31 09/26/17 23:31 Intake & Output 09/26/17 09/27/17 09/28/17 06:59 06:59 06:59 Intake Total 1914 Balance 191 Weight 68.5 kg General appearance: PRESENT: no acute distress, well-developed, well-nourished Head exam: PRESENT: atraumatic, normocephalic Respiratory exam: PRESENT: chest wall tenderness, rhonchi, tachypnea, unlabored Cardiovascular exam: PRESENT: RRR. ABSENT: diastolic murmur, rubs, systolic murmur GI/Abdominal exam: PRESENT: normal bowel sounds, soft. ABSENT: distended, guarding, mass, organolmegaly, rebound, tenderness Rectal exam: PRESENT: deferred Extremities exam: PRESENT: full ROM. ABSENT: calf tenderness, clubbing, pedal edema Neurological exam: PRESENT: alert, other - confused Psychiatric exam: PRESENT: appropriate affect. ABSENT: homicidal ideation, suicidal ideation Skin exam: PRESENT: rash - generalized, erythematous, maculopapular rash, other Results Laboratory Results: 09/27/17 04:11 09/27/17 04:11 WBC 17.5 H RBC 3.92 Hgb 12.6 Hct 36.2 MCV 92 MCH 32.0 MCHC 34.7 RDW 12.6 Plt Count 242 Seg Neutrophils % 76.4 Lymphocytes % 13.5 Monocytes % 9.6 Eosinophils % 0.3 Basophils % 0.2 Absolute Neutrophils 13.4 H Absolute Lymphocytes 2.4 Absolute Monocytes 1.7 H Absolute Eosinophils 0.1 Absolute Basophils 0.0 Assessment & Plan - Diagnosis (1) Petechial rash Is this a current diagnosis for this admission?: Yes Plan: Continue local measures. She is still on Prednisone Day 5, the rash is slowly resolving however still extensive and I'm not sure Prednisone is making any differences. Skin biopsy result is negative (2) Hypertension Qualifiers: Hypertension type: essential hypertension Qualified Code(s): I10 - Essential (primary) hypertension Is this a current diagnosis for this admission?: Yes Plan: stable (3) Hyponatremia Is this a current diagnosis for this admission?: Yes Plan: Resolved (4) Leukocytosis Is this a current diagnosis for this admission?: Yes Plan: Mildly improved. This could be inflammatory versus infectious. CRP is 51, ESR is normal Will follow up in am (5) Hypokalemia Is this a current diagnosis for this admission?: Yes Plan: Corrected (6) Dementia Qualifiers: Dementia behavioral disturbance: with behavioral disturbance Is this a current diagnosis for this admission?: Yes Plan: Chronic - Time Time Spent with patient: 15-24 minutes Medications reviewed and adjusted accordingly: Yes Anticipated discharge: Home Within: within 48 hours - Inpatient Certification Based on my medical assessment, after consideration of the patient's comorbidities, presenting symptoms, or acuity I expect that the services needed warrant INPATIENT care.: Yes Medical Necessity: Need for IV Antibiotics - Plan Summary Plan Summary: Patient can be dc home to follow up with PCP in 1 -2 days
[2017-09-27] MEDS: CEFTRIAXONE 2 GM/D5W RTU 2 GM/50 ML RTUPB IV SCH (15:14)
[2017-09-27] MEDS: DIPHENHYDRAMINE HCL 25 MG CAPSULE PO PRN ×2 (15:14→23:45)
[2017-09-28] MEDS: LANSOPRAZOLE 30 MG TAB.RAP.DR PO SCH (06:11)
[2017-09-28 07:19] LABS: HEMATOCRIT 40.8 % (36.0-47.0); HEMOGLOBIN 14.2 g/dL (12.0-15.5); MEAN CORPUSCULAR HEMOGLOBIN 31.7 pg (27.0-33.4); MEAN CORPUSCULAR HGB CONC 34.7 g/dL (32.0-36.0); MEAN CORPUSCULAR VOLUME 91 fl (80-97); PLATELET COUNT 267 10^3/uL (150-450); RED BLOOD COUNT 4.47 10^6/uL (3.72-5.28); RED CELL DISTRIBUTION WIDTH 12.4 % (11.5-14.0); WHITE BLOOD COUNT 24.8 10^3/uL (4.0-10.5)
[2017-09-28 07:21] LABS: ABSOLUTE LYMPHOCYTES# (MANUAL) 4.2 10^3/uL (0.5-4.7); ABSOLUTE MONOCYTES # (MANUAL) 0.5 10^3/uL (0.1-1.4); ABSOLUTE NEUTROPHILS# (MANUAL) 19.8 10^3/uL (1.7-8.2); BASOPHILS % (MANUAL) 1 % (0-2); EOSINOPHILS % (MANUAL) 0 % (0-6); LYMPHOCYTES % (MANUAL) 17 % (13-45); MONOCYTES % (MANUAL) 2 % (3-13); SEGMENTED NEUTROPHILS % (MAN) 80 % (42-78); TOTAL CELLS COUNTED 100
[2017-09-28 07:22] LABS: RBC MORPHOLOGY COMMENT NORMO-CYTIC/CHROMIC; TOXIC GRANULATION 1+
[2017-09-28 07:23] LABS: PLATELET COMMENT ADEQUATE
[2017-09-28] MEDS: PREDNISONE 20 MG TABLET PO SCH (09:11)
[2017-09-28] MEDS: ENOXAPARIN SODIUM INJ 40 MG/0.4 ML DISP.SYRIN SUBCUT SCH (09:12)
[2017-09-28] MEDS: NORMAL SALINE 1000 ML 1,000 ML IV PRN (09:12)
[2017-09-28] MEDS: HYDRALAZINE HCL 25 MG TABLET PO SCH ×2 (09:12→22:59)
[2017-09-28] MEDS: CEFTRIAXONE 2 GM/D5W RTU 2 GM/50 ML RTUPB IV SCH (14:46)
[2017-09-28] MEDS ORDERED: PREDNISONE 20 MG TABLET PO SCH (16:36)
--- NOTE | 2017-09-28 16:36 | PDOC PROGRESS REPORT ---
Subjective Progress Note for:: 09/28/17 Subjective:: This is 77 years old female patient admitted for diffused petechiae rash which also involve her palms and soles. Patient has also leukocytosis and with the impression of leuko-side to classic vasculitis biopsy was done and the pathology result is pending. I seen patient resting in bed comfortably she is not in pain or distress she is calm and less agitated. Her skin lesion is is improving Reason For Visit: LEUKOCYTOCLASTIC VASCULITIS, PETECHIAL RASH, Physical Exam Vital Signs: Temp Pulse Resp BP Pulse Ox 98.3 F 63 16 136/69 H 100 09/28/17 15:36 09/28/17 15:36 09/28/17 15:36 09/28/17 15:36 09/28/17 15:36 Intake & Output 09/27/17 09/28/17 09/29/17 06:59 06:59 06:59 Intake Total 5 2526 Balance 1915 2526 Weight 68.5 kg 68.5 kg General appearance: PRESENT: no acute distress, well-developed, well-nourished Head exam: PRESENT: atraumatic, normocephalic Respiratory exam: PRESENT: clear to auscultation cipriano. ABSENT: rales, rhonchi, wheezes Cardiovascular exam: PRESENT: RRR. ABSENT: diastolic murmur, rubs, systolic murmur GI/Abdominal exam: PRESENT: normal bowel sounds, soft. ABSENT: distended, guarding, mass, organolmegaly, rebound, tenderness Neurological exam: PRESENT: alert, awake, other - Patient disoriented due to her underlying dementia Psychiatric exam: PRESENT: appropriate affect, normal mood. ABSENT: homicidal ideation, suicidal ideation Results Laboratory Results: 09/28/17 06:00 09/28/17 06:00 WBC 24.8 H RBC 4.47 Hgb 14.2 Hct 40.8 MCV 91 MCH 31.7 MCHC 34.7 RDW 12.4 Plt Count 267 Seg Neutrophils % Not Reportable Lymphocytes % Not Reportable Monocytes % Not Reportable Eosinophils % Not Reportable Basophils % Not Reportable Absolute Neutrophils Not Reportable Absolute Lymphocytes Not Reportable Absolute Monocytes Not Reportable Absolute Eosinophils Not Reportable Absolute Basophils Not Reportable Assessment & Plan - Diagnosis (1) Petechial rash Is this a current diagnosis for this admission?: Yes Plan: Etiology unclear. Most probably adverse drug reaction. Patient has been on steroid since admission. I will decrease the dose of her daily steroid by half. (2) Hypertension Qualifiers: Hypertension type: essential hypertension Qualified Code(s): I10 - Essential (primary) hypertension Is this a current diagnosis for this admission?: Yes Plan: Hydralazine 50 mg p.o. 3 times daily (3) Dementia Qualifiers: Dementia behavioral disturbance: with behavioral disturbance Is this a current diagnosis for this admission?: Yes Plan: Stable - Time Time Spent with patient: 25-34 minutes
[2017-09-29 04:53] LABS: HEMATOCRIT 37.6 % (36.0-47.0); HEMOGLOBIN 13.1 g/dL (12.0-15.5); MEAN CORPUSCULAR HEMOGLOBIN 31.9 pg (27.0-33.4); MEAN CORPUSCULAR HGB CONC 34.9 g/dL (32.0-36.0); MEAN CORPUSCULAR VOLUME 91 fl (80-97); PLATELET COUNT 266 10^3/uL (150-450); RED BLOOD COUNT 4.12 10^6/uL (3.72-5.28); RED CELL DISTRIBUTION WIDTH 12.6 % (11.5-14.0); WHITE BLOOD COUNT 20.9 10^3/uL (4.0-10.5)
[2017-09-29] MEDS: LANSOPRAZOLE 30 MG TAB.RAP.DR PO SCH (06:17)
[2017-09-29] MEDS ORDERED: PREDNISONE 10 MG TABLET PO SCH (10:00)
[2017-09-29] MEDS: ENOXAPARIN SODIUM INJ 40 MG/0.4 ML DISP.SYRIN SUBCUT SCH (11:11)
[2017-09-29] MEDS: HYDRALAZINE HCL 25 MG TABLET PO SCH ×2 (11:11→21:45)
[2017-09-29] MEDS ORDERED: PREDNISONE 10 MG TABLET PO ONE (12:00)
--- NOTE | 2017-09-29 13:30 | PDOC PROGRESS REPORT ---
Subjective Progress Note for:: 09/29/17 Subjective:: Patient has been doing fine clinically clinically. Her particular rash is fading. Patient still has markedly leukocytosis. I tapered her Solu-Medrol from 60 mg to 37 today it is vaginal tapered to 10 mg p.o. daily. The biopsy result for the skin biopsies pending. Reason For Visit: LEUKOCYTOCLASTIC VASCULITIS, PETECHIAL RASH, Physical Exam Vital Signs: Temp Pulse Resp BP Pulse Ox 97.9 F 59 L 16 135/56 H 98 09/29/17 12:00 09/29/17 12:00 09/29/17 12:00 09/29/17 12:00 09/29/17 12:00 Intake & Output 09/28/17 09/29/17 09/30/17 06:59 06:59 06:59 Intake Total 2526 1240 Balance 2526 1240 Weight 68.5 kg 68.2 kg General appearance: PRESENT: no acute distress, well-developed, well-nourished Head exam: PRESENT: atraumatic, normocephalic Eye exam: PRESENT: conjunctiva pink, EOMI, PERRLA. ABSENT: scleral icterus Respiratory exam: PRESENT: clear to auscultation cipriano. ABSENT: rales, rhonchi, wheezes Cardiovascular exam: PRESENT: RRR. ABSENT: diastolic murmur, rubs, systolic murmur GI/Abdominal exam: PRESENT: normal bowel sounds, soft. ABSENT: distended, guarding, mass, organolmegaly, rebound, tenderness Extremities exam: PRESENT: full ROM. ABSENT: calf tenderness, clubbing, pedal edema Neurological exam: PRESENT: alert Psychiatric exam: PRESENT: normal mood Results Laboratory Results: 09/29/17 04:35 09/29/17 04:35 WBC 20.9 H RBC 4.12 Hgb 13.1 Hct 37.6 MCV 91 MCH 31.9 MCHC 34.9 RDW 12.6 Plt Count 266 Assessment & Plan - Diagnosis (1) Petechial rash Is this a current diagnosis for this admission?: Yes Plan: Etiology unclear. Most probably adverse drug reaction. Patient has been on steroid since admission. The possibility of leukocytoclastic vasculitis has been considered and biopsy of the skin performed and the results pending. (2) Hypertension Qualifiers: Hypertension type: essential hypertension Qualified Code(s): I10 - Essential (primary) hypertension Is this a current diagnosis for this admission?: Yes Plan: Hydralazine 50 mg p.o. 3 times daily (3) Dementia Qualifiers: Dementia behavioral disturbance: with behavioral disturbance Is this a current diagnosis for this admission?: Yes Plan: Stable - Time Time Spent with patient: 25-34 minutes
[2017-09-29] MEDS: CEFTRIAXONE 2 GM/D5W RTU 2 GM/50 ML RTUPB IV SCH (15:17)
[2017-09-30 05:18] LABS: ABSOLUTE BASOPHILS # (AUTO) 0.1 10^3/uL (0.0-0.2); ABSOLUTE EOSINOPHILS # (AUTO) 0.1 10^3/uL (0.0-0.6); ABSOLUTE LYMPHOCYTES (AUTO) 2.8 10^3/uL (0.5-4.7); ABSOLUTE MONOCYTES (AUTO) 1.3 10^3/uL (0.1-1.4); ABSOLUTE NEUT (AUTO) 13.4 10^3/uL (1.7-8.2); BASOPHILS % (AUTO) 0.8 % (0-2); EOSINOPHILS % (AUTO) 0.8 % (0-6); HEMATOCRIT 37.3 % (36.0-47.0); LYMPHOCYTES % (AUTO) 15.8 % (13-45); MEAN CORPUSCULAR HGB CONC 34.9 g/dL (32.0-36.0); MEAN CORPUSCULAR VOLUME 92 fl (80-97); MONOCYTES % (AUTO) 7.3 % (3-13); PLATELET COUNT 278 10^3/uL (150-450); RED BLOOD COUNT 4.07 10^6/uL (3.72-5.28); RED CELL DISTRIBUTION WIDTH 12.6 % (11.5-14.0); SEGMENTED NEUTROPHILS % (AUTO) 75.3 % (42-78); TOTAL CELLS COUNTED % (AUTO) 100 %; WHITE BLOOD COUNT 17.8 10^3/uL (4.0-10.5)
[2017-09-30] MEDS: LANSOPRAZOLE 30 MG TAB.RAP.DR PO SCH (07:45)
--- NOTE | 2017-09-30 09:34 | PDOC DISCHARGE SUMMARY ---
General - Admit/Disc Date/PCP Admission Date/Primary Care Provider: 09/26/17 15:00 Discharge Date: 09/30/17 - Discharge Diagnosis (1) Petechial rash Is this a current diagnosis for this admission?: Yes (2) Hypertension Is this a current diagnosis for this admission?: Yes (3) Dementia Is this a current diagnosis for this admission?: Yes (4) Leukocytosis Is this a current diagnosis for this admission?: Yes - Additional Information Resuscitation Status: Full Code Discharge Diet: As Tolerated Discharge Activity: Activity As Tolerated Home Medications: No Home Medications 09/23/17 History of Present Illness History of Present Illness: CHINTAN PEGUERO is a 77 year old female presents with 3 days history of diffuse rash. The rash is not itching and is not associated with fever. The rash is diffuse petechial nonblanching rash which involves her palms and soles. There is no mucous membrane or conjunctival involvement. Patient denies cramping or insect bite. She takes SELENE inhibitor and hydrochlorothiazide for her hypertension. No history of shortness of breath, congestion, tongue swelling, nausea, vomiting or diarrhea. No urinary complaints. Her blood work is remarkable for leukocytosis of 21,000. Hospital Course Hospital Course: Patient presented with diffuse petechial rash of unknown etiology.The posibility of drug reaction to the medication she has been taking namely SELENE inhibitor and hydrochlortizide considered and accordingly thses medications discontinued. Leukocytoclastic vasculitis also considered and biopsy of the petechial lesion done and the pathology result is pending.Patient has been treated with solumedrol and the rashed markedly decreased.Her leuokcytosis is trending down. Physical Exam Vital Signs: Temp Pulse Resp BP Pulse Ox 98.2 F 85 16 145/56 H 97 09/30/17 08:00 09/30/17 08:00 09/30/17 08:00 09/30/17 08:00 09/30/17 08:00 Intake & Output 09/29/17 09/30/17 10/01/17 06:59 06:59 06:59 Intake Total 1240 2545 Output Total 3 Balance 1240 2542 Weight 68.2 kg 67.5 kg General appearance: PRESENT: no acute distress, well-developed, well-nourished Head exam: PRESENT: atraumatic, normocephalic Eye exam: PRESENT: conjunctiva pink, EOMI, PERRLA. ABSENT: scleral icterus Neck exam: ABSENT: carotid bruit, JVD, lymphadenopathy, thyromegaly Respiratory exam: PRESENT: clear to auscultation cipriano. ABSENT: rales, rhonchi, wheezes Cardiovascular exam: PRESENT: RRR. ABSENT: diastolic murmur, rubs, systolic murmur GI/Abdominal exam: PRESENT: normal bowel sounds, soft. ABSENT: distended, guarding, mass, organolmegaly, rebound, tenderness Neurological exam: PRESENT: alert Skin exam: PRESENT: rash Results Laboratory Results: 09/30/17 04:43 09/30/17 04:43 WBC 17.8 H RBC 4.07 Hgb 13.0 Hct 37.3 MCV 92 MCH 32.0 MCHC 34.9 RDW 12.6 Plt Count 278 Seg Neutrophils % 75.3 Lymphocytes % 15.8 Monocytes % 7.3 Eosinophils % 0.8 Basophils % 0.8 Absolute Neutrophils 13.4 H Absolute Lymphocytes 2.8 Absolute Monocytes 1.3 Absolute Eosinophils 0.1 Absolute Basophils 0.1 Qualifiers - * PATIENT BEING DISCHARGED WITH ANY OF THE FOLLOWING DIAGNOSIS: No
[2017-09-30] MEDS ORDERED: PREDNISONE 10 MG TABLET PO SCH (10:00)
[2017-09-30] MEDS: ENOXAPARIN SODIUM INJ 40 MG/0.4 ML DISP.SYRIN SUBCUT SCH (10:44)
[2017-09-30] MEDS: HYDRALAZINE HCL 25 MG TABLET PO SCH (10:44)
[2017-09-30 21:23] VITALS: BP 144/52
--- NOTE | 2017-10-26 18:13 | Progress Note ---
Provider Note Provider Note: Biopsy taken from skin at 2 sites reported positive for psoriasis.
== END 2017-09-30 21:37 | disposition home or self-care (01) | DRG 596 ==
LOC: ER 22:46 → EH 09-23 02:32 → 5 09-23 03:39 → INTOOBSV 09-23 11:22 → OBSVTOIN 09-23 11:22
PROVIDERS: ADMIT Internal Medicine; ATTEND Internal Medicine
PROC: 0HBBXZX Excision of Right Upper Arm Skin, External Approach, Diagnostic (ICD-10-PCS; principal; 2017-09-25)
DX: L40.9 Psoriasis, unspecified (principal); F03.91 Unspecified dementia, unspecified severity, with behavioral disturbance; E87.1 Hypo-osmolality and hyponatremia; L95.9 Vasculitis limited to the skin, unspecified; R23.3 Spontaneous ecchymoses; I10 Essential (primary) hypertension; L98.9 Disorder of the skin and subcutaneous tissue, unspecified; E86.0 Dehydration; E87.6 Hypokalemia
CPT/HCPCS: 36415; 80048; 80053; 81001; 82962; 83605; 85025; 85027; 85610; 85652; 86140; 86430; 87040; 88305; 93306; 99285; G0378; J0696; J1630; J1650; J3490; J7030; J7512

== ENCOUNTER 2018-04-19 17:43 | Observation (INO) | payer MEDICARE, OTHER ==
--- NOTE | 2018-04-19 19:35 | RADIOLOGY REPORT (SQ) ---
EXAM DESCRIPTION: CT HEAD WITHOUT COMPLETED DATE/TIME: 04/19/2018 7:15 pm REASON FOR STUDY: Encephalopathhy COMPARISON: None. TECHNIQUE: Axial images acquired through the brain without intravenous contrast. Images reviewed wi th bone, brain and subdural windows. Images stored on PACS. All CT scanners at this facility use dose modulation, iterative reconstruction, and/or weight based d osing when appropriate to reduce radiation dose to as low as reasonably achievable (ALARA). [facility]: Dose Right [facility]: CareDose [facility]: Dose Right [facility]: Teradose 4D [facility]: [employer] RADIATION DOSE: CT Rad equipment meets quality standard of care and radiation dose reduction techniq ues were employed. CTDIvol: 48.5 mGy. DLP: 876 mGy-cm.mGy. LIMITATIONS: None. FINDINGS: VENTRICLES: Prominent. CEREBRUM: No masses. No hemorrhage. No midline shift. Areas of low density in the white matter mos t likely due to chronic micro-vascular ischemic change. No evidence for acute infarction. CEREBELLUM: No masses. No hemorrhage. No alteration of density. No evidence for acute infarction. EXTRAAXIAL SPACES: Age-related involutional change. No fluid collections. No masses. ORBITS AND GLOBE: No intra- or extraconal masses. Normal contour of globe without masses. CALVARIUM: No fracture. PARANASAL SINUSES: No fluid or mucosal thickening. SOFT TISSUES: No mass or hematoma. OTHER: No other significant finding. IMPRESSION: CHRONIC CHANGES OF ATROPHY AND MICROVASCULAR ISCHEMIA. NO ACUTE PROCESS. EVIDENCE OF ACUTE STROKE: NO. TECHNICAL DOCUMENTATION: JOB ID: [id number] Quality ID # [id number]: Final reports with documentation of one or more dose reduction techniques (e.g., Au tomated exposure control, adjustment of the mA and/or kV according to patient size, use of iterative reconstruction technique) 2010 [employer]- All Rights Reserved Reading location - IP/workstation name: [email or web address]
[2018-04-19 19:43] LABS: HEMATOCRIT 39.7 % (36.0-47.0); HEMOGLOBIN 13.8 g/dL (12.0-15.5); MEAN CORPUSCULAR HEMOGLOBIN 32.7 pg (27.0-33.4); MEAN CORPUSCULAR HGB CONC 34.8 g/dL (32.0-36.0); MEAN CORPUSCULAR VOLUME 94 fl (80-97); PLATELET COUNT 187 10^3/uL (150-450); RED BLOOD COUNT 4.22 10^6/uL (3.72-5.28); RED CELL DISTRIBUTION WIDTH 13.1 % (11.5-14.0); WHITE BLOOD COUNT 8.7 10^3/uL (4.0-10.5)
--- NOTE | 2018-04-19 19:51 | RADIOLOGY REPORT (SQ) ---
EXAM DESCRIPTION: CHEST SINGLE VIEW COMPLETED DATE/TIME: 04/19/2018 7:22 pm REASON FOR STUDY: Admission COMPARISON: None. EXAM PARAMETERS: NUMBER OF VIEWS: One view. TECHNIQUE: Single frontal radiographic view of the chest acquired. RADIATION DOSE: NA LIMITATIONS: None. FINDINGS: LUNGS AND PLEURA: No opacities, masses or pneumothorax. No pleural effusion. MEDIASTINUM AND HILAR STRUCTURES: No masses. Contour normal. HEART AND VASCULAR STRUCTURES: Heart normal in size. Normal vasculature. BONES: No acute findings. HARDWARE: None in the chest. OTHER: No other significant finding. IMPRESSION: NO ACUTE RADIOGRAPHIC FINDING IN THE CHEST. TECHNICAL DOCUMENTATION: JOB ID: [id number] [employer]- All Rights Reserved Reading location - IP/workstation name: [email or web address]
[2018-04-19 20:07] LABS: ALANINE AMINOTRANSFERASE 20 U/L (9-52); ALBUMIN 4.3 g/dL (3.5-5.0); ALKALINE PHOSPHATASE 83 U/L (38-126); ANION GAP 12 (5-19); ASPARTATE AMINO TRANSFERASE 28 U/L (14-36); BILIRUBIN,DIRECT 0.2 mg/dL (0.0-0.4); BILIRUBIN,TOTAL 0.4 mg/dL (0.2-1.3); BLOOD UREA NITROGEN 22 mg/dL (7-20); CALCIUM 9.5 mg/dL (8.4-10.2); CARBON DIOXIDE 28 mmol/L (22-30); CHLORIDE 106 mmol/L (98-107); GLUCOSE 101 mg/dL (75-110); SODIUM 145.9 mmol/L (137-145); TOTAL PROTEIN 6.9 g/dL (6.3-8.2)
[2018-04-19] MEDS: NORMAL SALINE 1000 ML 1,000 ML IV PRN (21:19)
[2018-04-20 04:12] LABS: APPEARANCE,URINE CLEAR; BILIRUBIN,URINE NEGATIVE (NEGATIVE); COLOR,URINE YELLOW; GLUCOSE, URINE NEGATIVE (NEGATIVE); KETONES,URINE NEGATIVE (NEGATIVE); LEUKOCYTE ESTERASE,URINE NEGATIVE (NEGATIVE); NITRITE,URINE NEGATIVE (NEGATIVE); PROTEIN,URINE NEGATIVE (NEGATIVE); URINE SPECIFIC GRAVITY 1.021; UROBILINOGEN,URINE NEGATIVE mg/dL (<2.0)
[2018-04-20] MEDS ORDERED: LORAZEPAM INJ 2 MG/1 ML VIAL IV PRN (18:08)
--- NOTE | 2018-04-20 21:26 | PDOC H&P ---
History of Present Illness Admission Date/PCP: 04/19/18 17:43 History of Present Illness: CHINTAN PEGUERO is a 77 year old female, She has severe dementia very confused she came to the office for the first time with her daughter for evaluation of worsening confusion, she has baseline dementia she is trying to place her in the prison because she said she needed to get back to work she need to pay her bills because she has been taking care of her mother, patient visit to the office was the first time, because of the fact that she has increased confusion and the etiology is not apparent in the office I felt patient needed to be admitted to the hospital to rule out any acute cause of the worsening confusion that she was manifesting. CT head was done which was negative for any acute pathology the blood work that was done was normal including a hemogram and metabolic panel. She has a mass in the right breast, the mass is necrotic there is associated palpable right axillary lymph nodes I did not appreciate the breast tissue on the right chest wall patient could not give me a reasonable history about this lesion in because she has dementia the daughter does not know the details of this history as well I assume this is breast cancer . Past Medical History Cardiac Medical History: Reports: Hypertension Psychiatric Medical History: Reports: Dementia, Depression Social History Smoking Status: Never Smoker Frequency of Alcohol Use: None Hx Recreational Drug Use: No Drugs: None Hx Prescription Drug Abuse: No Family History Family History: None Parental Family History Reviewed: Yes Children Family History Reviewed: Yes Sibling(s) Family History Reviewed.: Yes Medication/Allergy Home Medications: Unobtainable [Unobtainable] 04/20/18 Allergies/Adverse Reactions: No Known Allergies Allergy (Verified 09/23/17 03:19) Review of Systems ROS unobtainable: Due to mental status - Very confused, Other Physical Exam Vital Signs: Temp Pulse Resp BP Pulse Ox 98.4 F 61 16 132/67 H 99 04/20/18 20:00 04/20/18 20:00 04/20/18 20:00 04/20/18 20:00 04/20/18 20:00 Intake & Output 04/19/18 04/20/18 04/21/18 06:59 06:59 06:59 Intake Total 350 864 Output Total 600 Balance -250 864 Weight 74.9 kg General appearance: PRESENT: no acute distress Eye exam: PRESENT: PERRLA Respiratory exam: PRESENT: clear to auscultation cipriano, other - Necrotic mass in the right chest wall/right breast with a palpable right axillary lymph node Cardiovascular exam: PRESENT: +S1, +S2 GI/Abdominal exam: PRESENT: soft Neurological exam: PRESENT: alert Psychiatric exam: PRESENT: anxious Results Laboratory Results: 04/19/18 19:30 04/19/18 19:30 04/20/18 03:50 Urine Color YELLOW Urine Appearance CLEAR Urine pH 5.0 Ur Specific [place] 1.021 Urine Protein NEGATIVE Urine Glucose (UA) NEGATIVE Urine Ketones NEGATIVE Urine Blood NEGATIVE Urine Nitrite NEGATIVE Ur Leukocyte Esterase NEGATIVE Urine WBC (Auto) 0 Urine RBC (Auto) 1 Impressions: Chest X-Ray 04/19/18 00:00 IMPRESSION: NO ACUTE RADIOGRAPHIC FINDING IN THE CHEST. Head CT 04/19/18 00:00 IMPRESSION: CHRONIC CHANGES OF ATROPHY AND MICROVASCULAR ISCHEMIA. NO ACUTE PROCESS. EVIDENCE OF ACUTE STROKE: NO. Assessment & Plan - Diagnosis (1) Encephalopathy Is this a current diagnosis for this admission?: Yes Plan: She would need MRI of the brain with contrast to rule out brain metastasis (2) Breast mass, right Is this a current diagnosis for this admission?: Yes Plan: She probably have breast cancer, she would need tissue biopsy to confirm diagnosis, consultation will be obtained from surgery, the treatment will be challenging for this patient that have underlying dementia, the daughter is trying to place her in a prison. She cannot receive cancer treatment as a resident of the prison
--- NOTE | 2018-04-20 21:27 | PDOC PROGRESS REPORT ---
Subjective Progress Note for:: 04/20/18 Subjective:: She was made bedside, patient is extremely confused Reason For Visit: ENCEPHALOPATHY Physical Exam Vital Signs: Temp Pulse Resp BP Pulse Ox 98.4 F 61 16 132/67 H 99 04/20/18 20:00 04/20/18 20:00 04/20/18 20:00 04/20/18 20:00 04/20/18 20:00 Intake & Output 04/19/18 04/20/18 04/21/18 06:59 06:59 06:59 Intake Total 350 864 Output Total 600 Balance -250 864 Weight 74.9 kg General appearance: PRESENT: no acute distress Eye exam: PRESENT: PERRLA Respiratory exam: PRESENT: clear to auscultation cipriano Cardiovascular exam: PRESENT: +S1, +S2 GI/Abdominal exam: PRESENT: soft Neurological exam: PRESENT: alert Results Laboratory Results: 04/19/18 19:30 04/19/18 19:30 04/20/18 03:50 Urine Color YELLOW Urine Appearance CLEAR Urine pH 5.0 Ur Specific [place] 1.021 Urine Protein NEGATIVE Urine Glucose (UA) NEGATIVE Urine Ketones NEGATIVE Urine Blood NEGATIVE Urine Nitrite NEGATIVE Ur Leukocyte Esterase NEGATIVE Urine WBC (Auto) 0 Urine RBC (Auto) 1 Impressions: Chest X-Ray 04/19/18 00:00 IMPRESSION: NO ACUTE RADIOGRAPHIC FINDING IN THE CHEST. Head CT 04/19/18 00:00 IMPRESSION: CHRONIC CHANGES OF ATROPHY AND MICROVASCULAR ISCHEMIA. NO ACUTE PROCESS. EVIDENCE OF ACUTE STROKE: NO. Assessment & Plan - Diagnosis (1) Encephalopathy Is this a current diagnosis for this admission?: Yes (2) Breast mass, right Is this a current diagnosis for this admission?: Yes
--- NOTE | 2018-04-20 21:32 | RADIOLOGY REPORT (SQ) ---
EXAM DESCRIPTION: CT CHEST WITH IV CONTRAST COMPLETED DATE/TME: 04/20/2018 00:00 CLINICAL HISTORY: 77 years Female mass in the chest COMPARISON: Chest x-ray 04/19/2018. TECHNIQUE: Contiguous axial images were obtained through the chest during the infusion of IV contrast. Reformatted images obtained. MIP reformatted images obtained. This exam was performed according to our department optimization program which includes automated exposure control, adjustment of the mA and/or kv according to patient size and/or use of iterative reconstruction technique. FINDINGS: There is a soft tissue mass deep to the areola of the right breast with some associated skin thickening. Recommend correlation with mammogram as findings are concerning for possible malignancy. This measures 5 x 3.4 cm. Calcification in the aorta and the coronary arteries. No evidence of dissection or rupture. No pericardial or pleural effusion. No significant thoracic adenopathy. No evidence of alveolar consolidation. Atelectasis in the lung bases. Elevation the right hemidiaphragm. IMPRESSION: Large soft tissue mass in the retroareolar region of the right breast with some soft tissue distraction and skin thickening. Findings are concerning for malignancy. Recommend mammography No thoracic adenopathy No acute process in the chest
--- NOTE | 2018-04-21 13:32 | PDOC PROGRESS REPORT ---
Subjective Progress Note for:: 04/21/18 Subjective:: Patient continue to demonstrate baseline confusion related to her severe dementia. Tangential in responses. Still able to feed self at the time of my visit today. No reported difficulty with breathing or demonstrable chest pain. Reason For Visit: ENCEPHALOPATHY Physical Exam Vital Signs: Temp Pulse Resp BP Pulse Ox 98.6 F 57 L 16 138/66 H 100 04/21/18 11:29 04/21/18 11:29 04/21/18 11:29 04/21/18 11:29 04/21/18 11:29 Intake & Output 04/20/18 04/21/18 04/22/18 06:59 06:59 06:59 Intake Total 350 1064 Output Total 600 Balance -250 1064 Weight 74.9 kg 73.2 kg General appearance: PRESENT: no acute distress, well-developed, well-nourished Head exam: PRESENT: atraumatic, normocephalic Eye exam: PRESENT: conjunctiva pink, EOMI, PERRLA. ABSENT: scleral icterus Ear exam: PRESENT: normal external ear exam Mouth exam: PRESENT: moist Respiratory exam: PRESENT: clear to auscultation cipriano Cardiovascular exam: PRESENT: RRR, +S1, +S2. ABSENT: systolic murmur Vascular exam: PRESENT: normal capillary refill. ABSENT: pallor GI/Abdominal exam: PRESENT: normal bowel sounds, soft. ABSENT: distended, guarding, mass, organolmegaly, rebound, tenderness Extremities exam: ABSENT: pedal edema Musculoskeletal exam: PRESENT: deformity - related to multiple joints involvement with arthritis Neurological exam: PRESENT: alert, awake. ABSENT: oriented to person, oriented to place, oriented to time, oriented to situation Psychiatric exam: PRESENT: agitated - due t confusion and dementia Skin exam: PRESENT: dry, warm Results Laboratory Results: 04/19/18 19:30 04/19/18 19:30 Impressions: Chest X-Ray 04/19/18 00:00 IMPRESSION: NO ACUTE RADIOGRAPHIC FINDING IN THE CHEST. Head CT 04/19/18 00:00 IMPRESSION: CHRONIC CHANGES OF ATROPHY AND MICROVASCULAR ISCHEMIA. NO ACUTE PROCESS. EVIDENCE OF ACUTE STROKE: NO. Chest CT 04/20/18 00:00 IMPRESSION: Large soft tissue mass in the retroareolar region of the right breast with some soft tissue distraction and skin thickening. Findings are concerning for malignancy. 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 Start on Zbec vitamin supplementation. She may benefit from anti cholinesterase and NMDA receptor antagonist therapy after addressing her right breast mass issue that suggest malignancy. (2) Breast mass, right Is this a current diagnosis for this admission?: Yes Plan: Patient is schedule for possible biopsy very soon. - Time Time Spent with patient: 25-34 minutes Medications reviewed and adjusted accordingly: Yes Anticipated discharge: SNF Within: Other - Inpatient Certification Based on my medical assessment, after consideration of the patient's comorbidities, presenting symptoms, or acuity I expect that the services needed warrant INPATIENT care.: Yes I certify that my determination is in accordance with my understanding of Medicare's requirements for reasonable and necessary INPATIENT services [42 CFR 412.3e].: Yes Medical Necessity: Need Close Monitoring Due to Risk of Patient Decompensation, Need For IV Fluids, Need For Continuous Telemetry Monitoring, Need for Surgery, Risk of Complication if Not Cared For in Hospital Post Hospital Care: D/C Certified Medical Aide Documentation - Plan Summary Plan Summary: See covering attending physician orders as outlined per above care plan.
[2018-04-21] MEDS: LORAZEPAM INJ 2 MG/1 ML VIAL IV PRN (13:42)
[2018-04-21] MEDS: NORMAL SALINE 1000 ML 1,000 ML IV PRN (13:42)
[2018-04-21] MEDS ORDERED: GLUCAGON,HUMAN RECOMB 1 MG INJ SUBCUT PRN (15:28)
[2018-04-21] MEDS ORDERED: DEXTROSE 40% GEL 15 GM TUBE PO PRN ×2 (15:28)
[2018-04-21] MEDS ORDERED: DEXTROSE 50%-WATER 25 GM/50 ML DISP.SYRIN IV PRN ×2 (15:28)
[2018-04-21] MEDS: MULTIVIT-STRESS FORMULA/ZINC TABLET PO SCH (15:49)
--- NOTE | 2018-04-21 19:06 | PDOC CONSULTATION ---
Consultation Consult Date: 04/21/18 Consult reason:: right breast mass History of Present Illness Admission Date/PCP: 04/19/18 17:43 Patient complains of: has dementia, no complaints History of Present Illness: CHINTAN PEGUERO is a 77 year old female who has been staying with her daughter for past 2-3 months. Daughter noted right breast mass at that time but not sure when it started. Patient has dementia and non communicative though daughter claims patient can recognize the daughter. We were consulted for the right breast mass. Daughter gave permission for biopsy this Monday04/23/18 when she can be around. Past Medical History Cardiac Medical History: Reports: Hypertension Psychiatric Medical History: Reports: Dementia, Depression Social History Smoking Status: Never Smoker Frequency of Alcohol Use: None Hx Recreational Drug Use: No Drugs: None Hx Prescription Drug Abuse: No Family History Family History: None Parental Family History Reviewed: Yes - positive breast ca Children Family History Reviewed: No Sibling(s) Family History Reviewed.: No Medication/Allergy Home Medications: Unobtainable [Unobtainable] 04/20/18 Allergies/Adverse Reactions: No Known Allergies Allergy (Verified 09/23/17 03:19) Review of Systems ROS unobtainable: Due to mental status Physical Exam Vital Signs: Temp Pulse Resp BP Pulse Ox 97.7 F 64 16 95/79 L 96 04/21/18 15:43 04/21/18 15:43 04/21/18 15:43 04/21/18 15:43 04/21/18 15:43 Intake & Output 04/20/18 04/21/18 04/22/18 06:59 06:59 06:59 Intake Total 350 2064 673 Output Total 600 150 Balance -250 2064 523 Weight 74.9 kg 73.2 kg General appearance: PRESENT: no acute distress Head exam: PRESENT: atraumatic Eye exam: PRESENT: conjunctiva pink Mouth exam: PRESENT: moist Neck exam: PRESENT: full ROM Respiratory exam: PRESENT: clear to auscultation cipriano Cardiovascular exam: PRESENT: RRR Pulses: PRESENT: normal radial pulses Vascular exam: PRESENT: normal capillary refill GI/Abdominal exam: PRESENT: soft Rectal exam: PRESENT: deferred Extremities exam: PRESENT: full ROM Neurological exam: PRESENT: other - has dementia and not communicable Skin exam: PRESENT: other - Right breast mass aout 6x5 cm attached to overlying skin. Skin with some necrotic changes. Non tender. Has at least [address] Results Laboratory Results: 04/19/18 19:30 04/19/18 19:30 Impressions: Chest X-Ray 04/19/18 00:00 IMPRESSION: NO ACUTE RADIOGRAPHIC FINDING IN THE CHEST. Head CT 04/19/18 00:00 IMPRESSION: CHRONIC CHANGES OF ATROPHY AND MICROVASCULAR ISCHEMIA. NO ACUTE PROCESS. EVIDENCE OF ACUTE STROKE: NO. Chest CT 04/20/18 00:00 IMPRESSION: Large soft tissue mass in the retroareolar region of the right breast with some soft tissue distraction and skin thickening. Findings are concerning for malignancy. Recommend mammography No thoracic adenopathy No acute process in the chest Assessment & Plan - Diagnosis (1) Breast mass, right Is this a current diagnosis for this admission?: Yes - Time Time Spent: 30 to 50 Minutes - Plan Summary Plan Summary: Will do right breast biopsy to definitely document ca and hormonal features . Spoke and got consent from daughter. For bx Monday when daughter can be around
[2018-04-22 06:58] LABS: INTERNATIONAL RATION (INR) 0.99; PROTHROMBIN TIME 13.6 SEC (11.4-15.4)
[2018-04-22] MEDS: MULTIVIT-STRESS FORMULA/ZINC TABLET PO SCH (09:11)
[2018-04-22] MEDS: LORAZEPAM INJ 2 MG/1 ML VIAL IV PRN (10:37)
[2018-04-22] MEDS ORDERED: LIDOCAINE 1% INJ-PF (10 MG/ML) 30 ML SDV INJ PRN (10:59)
--- NOTE | 2018-04-22 12:55 | PDOC PROGRESS REPORT ---
Subjective Progress Note for:: 04/22/18 Subjective:: Patient remain at baseline dementia with demonstrable confusion. No reported difficulty with breathing or chest pain. No nausea or vomiting. Schedule for right breast mass biopsy by surgicalist today. Reason For Visit: ENCEPHALOPATHY Physical Exam Vital Signs: Temp Pulse Resp BP Pulse Ox 98.0 F 53 L 18 135/77 H 97 04/22/18 07:45 04/22/18 07:45 04/22/18 07:45 04/22/18 07:45 04/22/18 07:45 Intake & Output 04/21/18 04/22/18 04/23/18 06:59 06:59 06:59 Intake Total 2064 748 Output Total 150 Balance 2064 598 Weight 73.2 kg 74.6 kg Physical Exam: General appearance: PRESENT: no acute distress, well-developed, well-nourished Head exam: PRESENT: atraumatic, normocephalic Eye exam: PRESENT: conjunctiva pink, EOMI, PERRLA. ABSENT: pallor, scleral icterus Ear exam: PRESENT: normal external ear exam Mouth exam: PRESENT: moist Respiratory exam: PRESENT: clear to auscultation cipriano Cardiovascular exam: PRESENT: RRR, +S1, +S2. ABSENT: systolic murmur GI/Abdominal exam: PRESENT: normal bowel sounds, soft. ABSENT: distended, guarding, mass, organomegaly, rebound, tenderness Extremities exam: ABSENT: pedal edema Musculoskeletal exam: PRESENT: deformity - related to multiple joints involvement with arthritis Neurological exam: PRESENT: alert, awake. ABSENT: oriented to person, oriented to place, oriented to time, oriented to situation Psychiatric exam: PRESENT: agitated - due t confusion and dementia Skin exam: PRESENT: dry, warm Results Laboratory Results: 04/19/18 19:30 04/19/18 19:30 Impressions: Chest X-Ray 04/19/18 00:00 IMPRESSION: NO ACUTE RADIOGRAPHIC FINDING IN THE CHEST. Head CT 04/19/18 00:00 IMPRESSION: CHRONIC CHANGES OF ATROPHY AND MICROVASCULAR ISCHEMIA. NO ACUTE PROCESS. EVIDENCE OF ACUTE STROKE: NO. Chest CT 04/20/18 00:00 IMPRESSION: Large soft tissue mass in the retroareolar region of the right breast with some soft tissue distraction and skin thickening. Findings are concerning for malignancy. 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 Is this a current diagnosis for this admission?: Yes (2) Breast mass, right Is this a current diagnosis for this admission?: Yes - Time Time Spent with patient: 25-34 minutes Medications reviewed and adjusted accordingly: Yes Anticipated discharge: Home with Homehealth, SNF Within: within 48 hours - Inpatient Certification Based on my medical assessment, after consideration of the patient's comorbidities, presenting symptoms, or acuity I expect that the services needed warrant INPATIENT care.: Yes I certify that my determination is in accordance with my understanding of Medicare's requirements for reasonable and necessary INPATIENT services [42 CFR 412.3e].: Yes Medical Necessity: Need Close Monitoring Due to Risk of Patient Decompensation, Need for Surgery, Risk of Diagnosis Which Will Require Inpatient Eval/Care/ Monitoring Post Hospital Care: D/C Reverse Unit Operator Documentation, D/C or Transfer Summary - Plan Summary Plan Summary: Continue current medication management. Follow up on biopsy pathology findings.
--- NOTE | 2018-04-22 14:42 | Operative Report ---
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 Ultrasound directed core biopsies x2 right breast mass. 2. Ultrasound directed core biopsy x1 right axillary mass SURGEON: GUALBERTO BOND ANESTHESIA: Local TISSUE REMOVED OR ALTERED: Cores right breast and right axilla COMPLICATIONS: None ESTIMATED BLOOD LOSS: Scant INTRAOPERATIVE FINDINGS: See below PROCEDURE: Summary of procedure The procedures risk benefits alternatives were explained to the patient, as well as her daughter, Loly. I believe they expressed understanding and agree to proceed Patient examined on 429; Right breast mass with complete distortion of nipple and near replacement by tumor; the tumor occupies 60% of the right breast There are palpable lymph nodes in the right axilla, at least 2 We opted to perform core biopsy right breast. Appropriate trajectory was identified in the upper outer quadrant of the right breast. Skin was Lidia of 1 % plain lidocaine marta made in the skin with 11 blade, and the 12-gauge MammoSite was used to obtain 2 cores of the right breast mass which was extremely hard. No clip marker available so none deployed. The cores were sent as right breast mass to pathology. Same procedure performed the right axilla. There is scattered adenopathy with dominant mass along the right chest wall with at least 2 centimeter lymph node replacement with tumor. Adjacent procedure performed as described above with 1 large core obtained from the 12-gauge mammotome. Right breast and right axillary core specimens sent separately to pathology. Specimens were hand delivered by Dr. Bond on April 22, at 1:30 PM. Dressings applied. Recommendations: 1. Await final path report receptor status 2. Patient can follow-up with [facility] in 1-2 weeks.
[2018-04-23] MEDS: NORMAL SALINE 1000 ML 1,000 ML IV PRN (09:24)
[2018-04-23] MEDS: MULTIVIT-STRESS FORMULA/ZINC TABLET PO SCH (09:26)
[2018-04-24] MEDS: MULTIVIT-STRESS FORMULA/ZINC TABLET PO SCH (09:26)
--- NOTE | 2018-04-24 11:45 | RADIOLOGY REPORT (SQ) ---
EXAM DESCRIPTION: MRI HEAD COMBO COMPLETED DATE/TIME: 04/24/2018 11:30 am REASON FOR STUDY: Encephalopathy ?suspect metastatic disease , COMPARISON: CT chest 04/20/2018 CT brain 04/19/2018 TECHNIQUE: Multiplanar imaging includes noncontrasted T1, T2, FLAIR, diffusion with ADC map and post gadolinium contrast T1 sequences. Images stored on PACS. CONTRAST TYPE AND DOSE: 15 mL Dotarem. RENAL FUNCTION: GFR > 60. LIMITATIONS: None. FINDINGS: ANATOMY: No developmental anomalies. Normal vascular flow voids. Pituitary fossa normal. CSF SPACES: Mildly prominent sulci and sylvian fissures CEREBRUM: No MR evidence of brain parenchymal metastatic disease. No MR evidence of acute ischemic c hange, intracranial hemorrhage, mass effect, or midline shift. There is mild to moderate bifrontal a nd biparietal increased FLAIR/ T2 signal in the hemispheric white matter from small vessel ischemic c hange. POSTERIOR FOSSA: No signal alteration. No hemorrhage. No edema, masses, or mass effect. Internal glenna tory canals, cerebellopontine angles, mastoids normal. No enhancing lesions. No abnormal enhancement post contrast. DIFFUSION IMAGING: Negative for acute or subacute infarction. ORBITS: No masses. Globes normal. PARANASAL SINUSES: No fluid levels. Mucosa normal. OTHER: No other significant finding. IMPRESSION: No MR evidence of brain parenchymal or leptomeningeal metastatic disease. Age-appropriate prominence of the sulci and sylvian fissures with chronic bifrontal and biparietal sm all vessel ischemic change. EVIDENCE OF ACUTE STROKE: NO. TECHNICAL DOCUMENTATION: JOB ID: [id number] [employer]- All Rights Reserved Reading location - IP/workstation name: [email or web address]
[2018-04-24] MEDS: NORMAL SALINE 1000 ML 1,000 ML IV PRN (16:53)
--- NOTE | 2018-04-24 21:41 | PDOC PROGRESS REPORT ---
Subjective Progress Note for:: 04/24/18 Subjective:: The pathology of the biopsy of the right breast was invasive lobular carcinoma. MRI brain was negative for any metastatic disease. Consultation will be obtained from oncology the management of this patient's cancer will be very challenging she has severe dementia very confused difficult to engage in any reasonable conversation. Patient's daughter is unable to take care of her at home, the utilization committee is suggesting that she does not meet inpatient Criteria she has been on observation since admission Reason For Visit: ENCEPHALOPATHY Physical Exam Vital Signs: Temp Pulse Resp BP Pulse Ox 98.1 F 72 16 126/69 H 98 04/24/18 15:42 04/24/18 19:00 04/24/18 15:42 04/24/18 15:42 04/24/18 15:42 Intake & Output 04/23/18 04/24/18 04/25/18 06:59 06:59 06:59 Intake Total 1592 1300 590 Balance 1592 1300 590 Weight 75.2 kg 74.1 kg General appearance: PRESENT: no acute distress Eye exam: PRESENT: PERRLA Respiratory exam: PRESENT: clear to auscultation cipriano Cardiovascular exam: PRESENT: +S1, +S2 Neurological exam: PRESENT: alert, altered Results Laboratory Results: 04/19/18 19:30 04/19/18 19:30 Impressions: Chest X-Ray 04/19/18 00:00 IMPRESSION: NO ACUTE RADIOGRAPHIC FINDING IN THE CHEST. Head CT 04/19/18 00:00 IMPRESSION: CHRONIC CHANGES OF ATROPHY AND MICROVASCULAR ISCHEMIA. NO ACUTE PROCESS. EVIDENCE OF ACUTE STROKE: NO. Chest CT 04/20/18 00:00 IMPRESSION: Large soft tissue mass in the retroareolar region of the right breast with some soft tissue distraction and skin thickening. Findings are concerning for malignancy. Recommend mammography No thoracic adenopathy No acute process in the chest Head MRI 04/24/18 00:00 IMPRESSION: No MR evidence of brain parenchymal or leptomeningeal metastatic disease. Age-appropriate prominence of the sulci and sylvian fissures with chronic bifrontal and biparietal small vessel ischemic change. EVIDENCE OF ACUTE STROKE: NO. Assessment & Plan - Diagnosis (1) Encephalopathy Is this a current diagnosis for this admission?: Yes (2) Malignant neoplasm of right breast Qualifiers: Breast location: unspecified site of breast Estrogen receptor status: unspecified Patient sex: female Qualified Code(s): C50.911 - Malignant neoplasm of unspecified site of right female breast Is this a current diagnosis for this admission?: Yes
--- NOTE | 2018-04-24 21:42 | PDOC PROGRESS REPORT ---
Subjective Progress Note for:: 04/23/18 Subjective:: MRI brain is pending,patient was seen by the bedside Reason For Visit: ENCEPHALOPATHY Physical Exam Vital Signs: Temp Pulse Resp BP Pulse Ox 97.3 F 64 16 138/73 H 94 04/23/18 15:44 04/23/18 19:00 04/23/18 15:44 04/23/18 15:44 04/23/18 15:44 Intake & Output 04/22/18 04/23/18 04/24/18 06:59 06:59 06:59 Intake Total 1748 1592 300 Output Total 150 Balance 1598 1592 300 Weight 74.6 kg 75.2 kg General appearance: PRESENT: no acute distress Eye exam: PRESENT: PERRLA Respiratory exam: PRESENT: clear to auscultation cipriano Cardiovascular exam: PRESENT: +S1, +S2 GI/Abdominal exam: PRESENT: soft Neurological exam: PRESENT: alert Results Laboratory Results: 04/19/18 19:30 04/19/18 19:30 Impressions: Chest X-Ray 04/19/18 00:00 IMPRESSION: NO ACUTE RADIOGRAPHIC FINDING IN THE CHEST. Head CT 04/19/18 00:00 IMPRESSION: CHRONIC CHANGES OF ATROPHY AND MICROVASCULAR ISCHEMIA. NO ACUTE PROCESS. EVIDENCE OF ACUTE STROKE: NO. Chest CT 04/20/18 00:00 IMPRESSION: Large soft tissue mass in the retroareolar region of the right breast with some soft tissue distraction and skin thickening. Findings are concerning for malignancy. Recommend mammography No thoracic adenopathy No acute process in the chest Assessment & Plan - Diagnosis (1) Encephalopathy Is this a current diagnosis for this admission?: Yes (2) Breast mass, right Is this a current diagnosis for this admission?: Yes
--- NOTE | 2018-04-25 08:21 | PDOC CONSULTATION ---
Consultation Consult Date: 04/25/18 Consult reason:: Hematology/Oncology Consultation was requested for patient with newly diagnosed breast cancer. History of Present Illness Admission Date/PCP: 04/19/18 17:43 History of Present Illness: CHINTAN PEGUERO is a 78 year old female who is originally from [place], [place]. She has been living with her daughter for the past year, but over the last month, has had rapidly progressive confusion/dementia. She was evaluated in the ED and also found to have a breast mass. She was admitted for further care. Daughter states that she started having urinary incontinence about 2 weeks ago. She has been pacing up and down the hallway at home and complains of being tired. Otherwise, no new symptoms. Breast biopsy was performed and now shows Invasive Lobular carcinoma. MRI of the brain was negative. Past Medical History Cardiac Medical History: Reports: Hypertension Psychiatric Medical History: Reports: Dementia, Depression, General Anxiety Disorder Past Surgical History Past Surgical History: Reports: Section Social History Occupation: . Disability. Lives with: Family Smoking Status: Former Smoker Frequency of Alcohol Use: None Hx Recreational Drug Use: No Drugs: None Hx Prescription Drug Abuse: No Family History Family History: None Family History: 2 children. Parental Family History Reviewed: Yes - Mother with Breast Cancer. Father of Lung Cancer Children Family History Reviewed: Yes Sibling(s) Family History Reviewed.: No Medication/Allergy Home Medications: Unobtainable 04/20/18 Allergies/Adverse Reactions: No Known Allergies Allergy (Verified 09/23/17 03:19) Review of Systems Review of Systems: Difficult to assess due to dementia. Some questions, patient answers, but makes no sense, based on the question asked. Constitutional: ABSENT: fever(s), headache(s) Nose, Mouth, and Throat: ABSENT: sore throat Genitourinary: PRESENT: other - Incontinence Neurological: PRESENT: confusion, restless legs Psychiatric: PRESENT: anxiety Physical Exam Vital Signs: Temp Pulse Resp BP Pulse Ox 97.6 F 48 L 19 130/58 H 97 04/25/18 03:37 04/25/18 07:00 04/25/18 03:37 04/25/18 03:37 04/25/18 03:37 Intake & Output 04/24/18 04/25/18 04/26/18 06:59 06:59 06:59 Intake Total 1300 1194 1000 Balance 1300 1194 1000 Weight 74.1 kg 75.4 kg General appearance: PRESENT: no acute distress, thin Exam: 78 year old female. Head exam: PRESENT: normocephalic Eye exam: PRESENT: EOMI, PERRLA Mouth exam: PRESENT: tongue midline Neck exam: ABSENT: lymphadenopathy, tenderness Respiratory exam: PRESENT: clear to auscultation cipriano, unlabored Cardiovascular exam: PRESENT: RRR GI/Abdominal exam: PRESENT: soft. ABSENT: tenderness Extremities exam: PRESENT: other - TEDs in place. ABSENT: pedal edema Neurological exam: PRESENT: alert, awake. ABSENT: oriented to person, oriented to place, oriented to time, oriented to situation Psychiatric exam: PRESENT: appropriate affect Focused psych exam: ABSENT: restlessness Skin exam: PRESENT: other - Right breast with dressing in place. Results Laboratory Results: 04/19/18 19:30 04/19/18 19:30 Impressions: Chest X-Ray 04/19/18 00:00 IMPRESSION: NO ACUTE RADIOGRAPHIC FINDING IN THE CHEST. Head CT 04/19/18 00:00 IMPRESSION: CHRONIC CHANGES OF ATROPHY AND MICROVASCULAR ISCHEMIA. NO ACUTE PROCESS. EVIDENCE OF ACUTE STROKE: NO. Chest CT 04/20/18 00:00 IMPRESSION: Large soft tissue mass in the retroareolar region of the right breast with some soft tissue distraction and skin thickening. Findings are concerning for malignancy. Recommend mammography No thoracic adenopathy No acute process in the chest Head MRI 04/24/18 00:00 IMPRESSION: No MR evidence of brain parenchymal or leptomeningeal metastatic disease. Age-appropriate prominence of the sulci and sylvian fissures with chronic bifrontal and biparietal small vessel ischemic change. EVIDENCE OF ACUTE STROKE: NO. Status: Image reviewed by me Assessment & Plan - Diagnosis (1) Malignant neoplasm of right breast Qualifiers: Breast location: unspecified site of breast Estrogen receptor status: unspecified Patient sex: female Qualified Code(s): C50.911 - Malignant neoplasm of unspecified site of right female breast Is this a current diagnosis for this admission?: Yes Plan: Lobular Carcinoma. Awaiting ER,CT, Her2 studies. I discussed this with the daughter, by phone in detail. If she is ER+ then she may benefit from an aromatase inhibitor. It is difficult to say if the confusion will clear at all after treatment for the breast cancer, but this is a possibility. Otherwise, she would be a good candidate for Hospice. She may be on Hospice even while she is taking the aromatase inhibitor. Daughter agrees with this plan of treatment, if appropriate. I will start once ER status is known. (2) Dementia Qualifiers: Dementia behavioral disturbance: with behavioral disturbance Is this a current diagnosis for this admission?: Yes Plan: She has a history of anxiety. MRI of the brain was negative. Consider ionized Ca, TSH, and other work-up. However, it may be related to the cancer. I agree with plans for [facility] facility. I believe she would be safer in this environment. - Plan Summary Plan Summary: Thank you for this consultation. I will continue to follow her with you.
[2018-04-25] MEDS: MULTIVIT-STRESS FORMULA/ZINC TABLET PO SCH (10:34)
[2018-04-25] MEDS: LORAZEPAM INJ 2 MG/1 ML VIAL IV PRN (16:41)
[2018-04-25] MEDS: NORMAL SALINE 1000 ML 1,000 ML IV PRN (18:09)
--- NOTE | 2018-04-25 19:53 | PDOC PROGRESS REPORT ---
Subjective Progress Note for:: 04/25/18 Subjective:: Patient was seen by the oncologist, she is still very confused, on admission the serum sodium was elevated, she is still on IV fluid normal saline we will follow blood work. Reason For Visit: ENCEPHALOPATHY Physical Exam Vital Signs: Temp Pulse Resp BP Pulse Ox 97.8 F 73 16 140/63 H 100 04/25/18 16:08 04/25/18 16:08 04/25/18 16:08 04/25/18 16:08 04/25/18 16:08 Intake & Output 04/24/18 04/25/18 04/26/18 06:59 06:59 06:59 Intake Total 1300 1194 1502 Balance 1300 1194 1502 Weight 74.1 kg 75.4 kg General appearance: PRESENT: no acute distress Eye exam: PRESENT: PERRLA Respiratory exam: PRESENT: clear to auscultation cipriano Cardiovascular exam: PRESENT: +S1, +S2 GI/Abdominal exam: PRESENT: soft Neurological exam: PRESENT: alert Results Laboratory Results: 04/19/18 19:30 04/19/18 19:30 Impressions: Chest X-Ray 04/19/18 00:00 IMPRESSION: NO ACUTE RADIOGRAPHIC FINDING IN THE CHEST. Head CT 04/19/18 00:00 IMPRESSION: CHRONIC CHANGES OF ATROPHY AND MICROVASCULAR ISCHEMIA. NO ACUTE PROCESS. EVIDENCE OF ACUTE STROKE: NO. Chest CT 04/20/18 00:00 IMPRESSION: Large soft tissue mass in the retroareolar region of the right breast with some soft tissue distraction and skin thickening. Findings are concerning for malignancy. Recommend mammography No thoracic adenopathy No acute process in the chest Head MRI 04/24/18 00:00 IMPRESSION: No MR evidence of brain parenchymal or leptomeningeal metastatic disease. Age-appropriate prominence of the sulci and sylvian fissures with chronic bifrontal and biparietal small vessel ischemic change. EVIDENCE OF ACUTE STROKE: NO. Assessment & Plan - Diagnosis (1) Encephalopathy Is this a current diagnosis for this admission?: Yes (2) Malignant neoplasm of right breast Qualifiers: Breast location: unspecified site of breast Estrogen receptor status: unspecified Patient sex: female Qualified Code(s): C50.911 - Malignant neoplasm of unspecified site of right female breast Is this a current diagnosis for this admission?: Yes (3) Hypernatremia Is this a current diagnosis for this admission?: Yes
[2018-04-25 19:58] LABS: ABSOLUTE BASOPHILS # (AUTO) 0.1 10^3/uL (0.0-0.2); ABSOLUTE NEUT (AUTO) 6.1 10^3/uL (1.7-8.2); HEMOGLOBIN 12.5 g/dL (12.0-15.5); RED CELL DISTRIBUTION WIDTH 13.2 % (11.5-14.0); TOTAL CELLS COUNTED % (AUTO) 100 %
[2018-04-25 20:02] LABS: ABSOLUTE EOSINOPHILS # (AUTO) 0.2 10^3/uL (0.0-0.6); ABSOLUTE LYMPHOCYTES (AUTO) 2.3 10^3/uL (0.5-4.7); ABSOLUTE MONOCYTES (AUTO) 0.9 10^3/uL (0.1-1.4); BASOPHILS % (AUTO) 0.7 % (0-2); EOSINOPHILS % (AUTO) 1.7 % (0-6); LYMPHOCYTES % (AUTO) 23.8 % (13-45); MEAN CORPUSCULAR HEMOGLOBIN 33.1 pg (27.0-33.4); MEAN CORPUSCULAR HGB CONC 35.5 g/dL (32.0-36.0); MEAN CORPUSCULAR VOLUME 93 fl (80-97); MONOCYTES % (AUTO) 9.7 % (3-13); PLATELET COUNT 191 10^3/uL (150-450); RED BLOOD COUNT 3.76 10^6/uL (3.72-5.28); SEGMENTED NEUTROPHILS % (AUTO) 64.1 % (42-78); WHITE BLOOD COUNT 9.5 10^3/uL (4.0-10.5)
[2018-04-25 20:15] LABS: ALANINE AMINOTRANSFERASE 10 U/L (9-52); ALKALINE PHOSPHATASE 74 U/L (38-126); ASPARTATE AMINO TRANSFERASE 16 U/L (14-36); BILIRUBIN,DIRECT 0.2 mg/dL (0.0-0.4); BILIRUBIN,TOTAL 0.3 mg/dL (0.2-1.3); BLOOD UREA NITROGEN 19 mg/dL (7-20); CALCIUM 8.8 mg/dL (8.4-10.2); GLUCOSE 109 mg/dL (75-110); POTASSIUM 3.7 mmol/L (3.6-5.0); TOTAL PROTEIN 5.3 g/dL (6.3-8.2)
[2018-04-25 20:24] LABS: ANION GAP 4 (5-19); CARBON DIOXIDE 31 mmol/L (22-30); CHLORIDE 107 mmol/L (98-107); SODIUM 141.5 mmol/L (137-145)
--- NOTE | 2018-04-26 06:01 | PDOC PROGRESS REPORT ---
Subjective Progress Note for:: 04/26/18 Subjective:: Patient is sleeping peacefully. Nurses report no new issues. Patient denies pain. She is able to get to bathroom with assistance, and is very pleasant. Reason For Visit: ENCEPHALOPATHY Physical Exam Vital Signs: Temp Pulse Resp BP Pulse Ox 98.3 F 48 L 20 119/50 L 96 04/26/18 00:00 04/26/18 02:00 04/26/18 00:00 04/26/18 00:00 04/26/18 00:00 Intake & Output 04/24/18 04/25/18 04/26/18 06:59 06:59 06:59 Intake Total 1300 1194 1502 Balance 1300 1194 1502 Weight 74.1 kg 75.4 kg General appearance: PRESENT: no acute distress, well-developed, well-nourished Head exam: PRESENT: normocephalic Respiratory exam: PRESENT: clear to auscultation cipriano, unlabored Cardiovascular exam: PRESENT: RRR Extremities exam: ABSENT: pedal edema Skin exam: PRESENT: normal color Results Laboratory Results: 04/25/18 19:52 04/25/18 19:52 04/25/18 04/25/18 19:52 19:52 WBC 9.5 RBC 3.76 Hgb 12.5 Hct 35.0 L MCV 93 MCH 33.1 MCHC 35.5 RDW 13.2 Plt Count 191 Seg Neutrophils % 64.1 Lymphocytes % 23.8 Monocytes % 9.7 Eosinophils % 1.7 Basophils % 0.7 Absolute Neutrophils 6.1 Absolute Lymphocytes 2.3 Absolute Monocytes 0.9 Absolute Eosinophils 0.2 Absolute Basophils 0.1 Sodium 141.5 Potassium 3.7 Chloride 107 Carbon Dioxide 31 H Anion Gap 4 L BUN 19 Creatinine 0.71 Est GFR ( Amer) > 60 Est GFR (Non-Af Amer) > 60 Glucose 109 Calcium 8.8 Total Bilirubin 0.3 AST 16 ALT 10 Alkaline Phosphatase 74 Total Protein 5.3 L Albumin 3.0 L Impressions: Chest X-Ray 04/19/18 00:00 IMPRESSION: NO ACUTE RADIOGRAPHIC FINDING IN THE CHEST. Head CT 04/19/18 00:00 IMPRESSION: CHRONIC CHANGES OF ATROPHY AND MICROVASCULAR ISCHEMIA. NO ACUTE PROCESS. EVIDENCE OF ACUTE STROKE: NO. Chest CT 04/20/18 00:00 IMPRESSION: Large soft tissue mass in the retroareolar region of the right breast with some soft tissue distraction and skin thickening. Findings are concerning for malignancy. Recommend mammography No thoracic adenopathy No acute process in the chest Head MRI 04/24/18 00:00 IMPRESSION: No MR evidence of brain parenchymal or leptomeningeal metastatic disease. Age-appropriate prominence of the sulci and sylvian fissures with chronic bifrontal and biparietal small vessel ischemic change. EVIDENCE OF ACUTE STROKE: NO. Assessment & Plan - Diagnosis (1) Malignant neoplasm of right breast Qualifiers: Breast location: unspecified site of breast Estrogen receptor status: unspecified Patient sex: female Qualified Code(s): C50.911 - Malignant neoplasm of unspecified site of right female breast Is this a current diagnosis for this admission?: Yes Plan: Await hormone receptor status. If ER/VT+ will start Arimidex 1 mg po daily. Otherwise, continue comfort measures and palliative therapy. She is a great candidate for Hospice. (2) Dementia Qualifiers: Dementia behavioral disturbance: with behavioral disturbance Is this a current diagnosis for this admission?: Yes Plan: Family is no longer able to safely care for her at home. They have requested [facility] facility. I believe this is very appropriate. Patient is quite stable at this point. - Plan Summary Plan Summary: I will await final pathology report. Otherwise, will see only PRN. Please call me if any questions or concerns.
[2018-04-26] MEDS: MULTIVIT-STRESS FORMULA/ZINC TABLET PO SCH (09:03)
[2018-04-26] MEDS: NORMAL SALINE 1000 ML 1,000 ML IV PRN (10:07)
[2018-04-26] MEDS: LORAZEPAM INJ 2 MG/1 ML VIAL IV PRN (14:42)
--- NOTE | 2018-04-26 19:42 | PDOC DISCHARGE SUMMARY ---
General - Admit/Disc Date/PCP Admission Date/Primary Care Provider: 04/19/18 17:43 Discharge Date: 04/26/18 - Discharge Diagnosis (1) Encephalopathy Is this a current diagnosis for this admission?: Yes (2) Malignant neoplasm of right breast Is this a current diagnosis for this admission?: Yes (3) Hypernatremia Is this a current diagnosis for this admission?: Yes - Additional Information Home Medications: Unobtainable 04/20/18 History of Present Illness History of Present Illness: CHINTAN PEGUERO is a 77 year old female, She has severe dementia very confused she came to the office for the first time with her daughter for evaluation of worsening confusion, she has baseline dementia she is trying to place her in the correction because she said she needed to get back to work she need to pay her bills because she has been taking care of her mother, patient visit to the office was the first time, because of the fact that she has increased confusion and the etiology is not apparent in the office I felt patient needed to be admitted to the hospital to rule out any acute cause of the worsening confusion that she was manifesting. CT head was done which was negative for any acute pathology the blood work that was done was normal including a hemogram and metabolic panel. She has a mass in the right breast, the mass is necrotic there is associated palpable right axillary lymph nodes I did not appreciate the breast tissue on the right chest wall patient could not give me a reasonable history about this lesion in because she has dementia the daughter does not know the details of this history as well I assume this is breast cancer . Hospital Course Hospital Course: Patient was admitted for the management of confusion, she was also found to have incidentally a right breast mass that was biopsied, confirmed right lobular carcinoma of the breast. She was seen in consultation by the surgeon Dr. Bond, he did a biopsy of the right breast mass. The cytogenetics on the hormone receptor testing is pending. Patient has CT chest, MRI of the brain with contrast that was negative for any metastasis. Patient has underlying dementia she is pleasantly confused no reasonable conversation could be established with this patient. Patient family wants patient placed in a correction but the utilization department stated that patient does not meet criteria for inpatient care and that she only met for observation, she already stayed for more than 5 days in the hospital and she is still only met for observation. She is been discharged home in the care of her daughter Physical Exam Vital Signs: Temp Pulse Resp BP Pulse Ox 97.5 F 65 16 111/85 100 04/26/18 16:00 04/26/18 16:00 04/26/18 16:00 04/26/18 16:00 04/26/18 16:00 Intake & Output 04/25/18 04/26/18 04/27/18 06:59 06:59 06:59 Intake Total 1194 1652 1887 Output Total 350 Balance 1194 1652 1537 Weight 75.4 kg 76 kg General appearance: PRESENT: no acute distress Head exam: PRESENT: atraumatic, normocephalic Eye exam: PRESENT: PERRLA. ABSENT: scleral icterus Neck exam: PRESENT: full ROM Respiratory exam: PRESENT: clear to auscultation cipriano Cardiovascular exam: PRESENT: RRR, +S1, +S2 Vascular exam: PRESENT: normal capillary refill GI/Abdominal exam: PRESENT: normal bowel sounds, soft Rectal exam: PRESENT: deferred Neurological exam: PRESENT: alert, awake, oriented to person, oriented to place, oriented to time, oriented to situation, CN II-XII grossly intact Psychiatric exam: PRESENT: appropriate affect, normal mood Skin exam: PRESENT: dry, intact, warm. ABSENT: cyanosis, rash Results Laboratory Results: 04/25/18 19:52 04/25/18 19:52 04/25/18 04/25/18 19:52 19:52 WBC 9.5 RBC 3.76 Hgb 12.5 Hct 35.0 L MCV 93 MCH 33.1 MCHC 35.5 RDW 13.2 Plt Count 191 Seg Neutrophils % 64.1 Lymphocytes % 23.8 Monocytes % 9.7 Eosinophils % 1.7 Basophils % 0.7 Absolute Neutrophils 6.1 Absolute Lymphocytes 2.3 Absolute Monocytes 0.9 Absolute Eosinophils 0.2 Absolute Basophils 0.1 Sodium 141.5 Potassium 3.7 Chloride 107 Carbon Dioxide 31 H Anion Gap 4 L BUN 19 Creatinine 0.71 Est GFR ( Amer) > 60 Est GFR (Non-Af Amer) > 60 Glucose 109 Calcium 8.8 Total Bilirubin 0.3 AST 16 ALT 10 Alkaline Phosphatase 74 Total Protein 5.3 L Albumin 3.0 L Impressions: Chest X-Ray 04/19/18 00:00 IMPRESSION: NO ACUTE RADIOGRAPHIC FINDING IN THE CHEST. Head CT 04/19/18 00:00 IMPRESSION: CHRONIC CHANGES OF ATROPHY AND MICROVASCULAR ISCHEMIA. NO ACUTE PROCESS. EVIDENCE OF ACUTE STROKE: NO. Chest CT 04/20/18 00:00 IMPRESSION: Large soft tissue mass in the retroareolar region of the right breast with some soft tissue distraction and skin thickening. Findings are concerning for malignancy. Recommend mammography No thoracic adenopathy No acute process in the chest Head MRI 04/24/18 00:00 IMPRESSION: No MR evidence of brain parenchymal or leptomeningeal metastatic d isease. Age-appropriate prominence of the sulci and sylvian fissures with chronic bifrontal and biparietal small vessel ischemic change. EVIDENCE OF ACUTE STROKE: NO. Qualifiers - * PATIENT BEING DISCHARGED WITH ANY OF THE FOLLOWING DIAGNOSIS: No Plan Discharge Plan: She would need to follow with oncology Time Spent: Less than 30 Minutes
[2018-04-27] MEDS: NORMAL SALINE 1000 ML 1,000 ML IV PRN (05:23)
[2018-04-27] MEDS: MULTIVIT-STRESS FORMULA/ZINC TABLET PO SCH (09:13)
[2018-04-27] MEDS: LORAZEPAM INJ 2 MG/1 ML VIAL IV PRN (13:37)
[2018-04-27 16:44] VITALS: BP 109/68
[2018-04-27] MEDS ORDERED: ANASTROZOLE 1 MG TABLET PO SCH (16:45)
== END 2018-04-27 15:43 | disposition home or self-care (01) ==
LOC: INTOOBSV 17:43 → 4S 17:43
PROVIDERS: ADMIT Internal Medicine; ATTEND Internal Medicine
PROC: 0HBT3ZX Excision of Right Breast, Percutaneous Approach, Diagnostic (ICD-10-PCS; principal; 2018-04-22)
PROC: 07B53ZX Excision of Right Axillary Lymphatic, Percutaneous Approach, Diagnostic (ICD-10-PCS; 2018-04-22)
PROC: 3E02340 Introduction of Influenza Vaccine into Muscle, Percutaneous Approach (ICD-10-PCS; 2018-04-27)
DX: G93.40 Encephalopathy, unspecified (principal); C50.911 Malignant neoplasm of unspecified site of right female breast; C77.3 Secondary and unspecified malignant neoplasm of axilla and upper limb lymph nodes; Z17.0 Estrogen receptor positive status [ER+]; E87.0 Hyperosmolality and hypernatremia; R32 Unspecified urinary incontinence; I67.2 Cerebral atherosclerosis; F01.51 Vascular dementia, unspecified severity, with behavioral disturbance; G25.81 Restless legs syndrome; F41.9 Anxiety disorder, unspecified; Z87.891 Personal history of nicotine dependence; Z23 Encounter for immunization; Z80.3 Family history of malignant neoplasm of breast; Z80.1 Family history of malignant neoplasm of trachea, bronchus and lung; Z74.9 Problem related to care provider dependency, unspecified
CPT/HCPCS: 36415 ×3; 87086; 85025; 85027; 85610; 80076; 80048; 80053; 81001; 88342 ×2; 88341 ×2; 88305 ×2; 70553; 71045; 70450; 71260; 90686; 19083; 19084; 38505; G0008; A9576; J2060 ×5; A9270 ×6; J7030 ×7; 90471; G0378; G0379; J3490

== ENCOUNTER 2018-05-09 19:52 | Emergency (ER) | payer MEDICARE, OTHER ==
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
[2018-05-09 21:03] LABS: ABSOLUTE EOSINOPHILS # (AUTO) 0.1 10^3/uL (0.0-0.6); ABSOLUTE LYMPHOCYTES (AUTO) 2.3 10^3/uL (0.5-4.7); ABSOLUTE NEUT (AUTO) 7.8 10^3/uL (1.7-8.2); BASOPHILS % (AUTO) 0.4 % (0-2); HEMATOCRIT 38.5 % (36.0-47.0); HEMOGLOBIN 13.4 g/dL (12.0-15.5); LYMPHOCYTES % (AUTO) 20.3 % (13-45); MEAN CORPUSCULAR HEMOGLOBIN 32.9 pg (27.0-33.4); MEAN CORPUSCULAR HGB CONC 34.8 g/dL (32.0-36.0); MEAN CORPUSCULAR VOLUME 94 fl (80-97); MONOCYTES % (AUTO) 8.6 % (3-13); PLATELET COUNT 229 10^3/uL (150-450); RED BLOOD COUNT 4.07 10^6/uL (3.72-5.28); SEGMENTED NEUTROPHILS % (AUTO) 69.7 % (42-78); TOTAL CELLS COUNTED % (AUTO) 100 %; WHITE BLOOD COUNT 11.2 10^3/uL (4.0-10.5)
[2018-05-09 21:18] LABS: ALANINE AMINOTRANSFERASE 15 U/L (9-52); ALBUMIN 3.8 g/dL (3.5-5.0); ALKALINE PHOSPHATASE 80 U/L (38-126); ANION GAP 7 (5-19); ASPARTATE AMINO TRANSFERASE 19 U/L (14-36); BILIRUBIN,DIRECT 0.2 mg/dL (0.0-0.4); BILIRUBIN,TOTAL 0.6 mg/dL (0.2-1.3); BLOOD UREA NITROGEN 15 mg/dL (7-20); CALCIUM 9.2 mg/dL (8.4-10.2); CARBON DIOXIDE 29 mmol/L (22-30); CHLORIDE 106 mmol/L (98-107); GLUCOSE 106 mg/dL (75-110); POTASSIUM 3.6 mmol/L (3.6-5.0); SODIUM 141.7 mmol/L (137-145); TOTAL PROTEIN 6.1 g/dL (6.3-8.2)
[2018-05-09 21:19] LABS: ACETAMINOPHEN < 10 ug/mL (10-30); ALCOHOL < 10 mg/dL (NONE DETECTED); SALICYLATE < 1.0 mg/dL (2.0-20.0)
[2018-05-10 08:03] LABS: APPEARANCE,URINE SLIGHTLY-CLOUDY; BILIRUBIN,URINE NEGATIVE (NEGATIVE); COLOR,URINE YELLOW; GLUCOSE, URINE NEGATIVE (NEGATIVE); KETONES,URINE NEGATIVE (NEGATIVE); LEUKOCYTE ESTERASE,URINE LARGE (NEGATIVE); NITRITE,URINE NEGATIVE (NEGATIVE); PROTEIN,URINE NEGATIVE (NEGATIVE); URINE SPECIFIC GRAVITY 1.015
[2018-05-10 08:17] LABS: URINE AMPHETAMINES SCREEN NEGATIVE; URINE BARBITURATES SCREEN NEGATIVE; URINE BENZODIAZEPINES SCREEN NEGATIVE; URINE COCAINE SCREEN NEGATIVE; URINE MARIJUANA (THC) SCREEN NEGATIVE; URINE METHADONE SCREEN NEGATIVE; URINE PHENCYCLIDINE SCREEN NEGATIVE
--- NOTE | 2018-05-10 10:05 | ER Document Report ---
Doctor's Note Notes: 05/10/18 10:00 Rounds: Patient is sleeping but awakens easily. Patient is very confused. Had to look at her name band on her left wrist to show me her name. Does not answer questions appropriately. Patient is apparently suffering from severe dementia. Also has been diagnosed with depression and anxiety. Unable to answer any questions that are helpful in the knowledge based on this patient. She lives with her daughter. Wanders away from home. Difficult to manage and not felt to be manageable in her current environment at home. She is been evaluated recently with an MRI of her head which was normal. Her vital signs are all normal. Lab studies show a urine that suggestive of a UTI. She has large leukocyte esterase, 65 white cells, trace bacteria. Her white cell count is only 11,200. I am going to put the patient on Macrobid and culture her urine. environmental emergencies planner is working on placement of this patient. Patient appears to be medically stable for transfer or discharge. Darius Cornell MD
[2018-05-10] MEDS ORDERED: NITROFURANTOIN MONOHYD/M-CRYST 100 MG CAPSULE PO SCH ×2 (10:15→22:00)
--- NOTE | 2018-05-10 12:44 | PSYCHOLOGICAL NOTE ---
Psych Note - Psych Note Date seen by psych provider: 05/10/18 Psych Note: Reason for Consult: IVC Patient is a 78-year-old female who presents to the emergency department with involuntarily commitment papers. According to her IVC paperwork, she has depression, anxiety, breast cancer, and dementia. Chart review conducted: Patient was a patient at [facility] for observation from 04/19/2018 until 04/27/2018; CHINTAN PEGUERO has severe dementia very confused she came to the office for the first time with her daughter for evaluation of worsening confusion, she has baseline dementia she is trying to place her in the prison because she said she needed to get back to work she need to pay her bills because she has been taking care of her mother, patient visit to the office was the first time, because of the fact that she has increased confusion and the etiology is not apparent in the office I felt patient needed to be admitted to the hospital to rule out any acute cause of the worsening confusion that she was manifesting. Patient was diagnosed with malignant neoplasm of unspecified site of right female breast during her visit. She also had a head CT conducted on 04/19/2018 which indicated chronic changes of atrophy and microvascular ischemia changes and a Head MRI 04/24/2018 with findings of "age-appropriate prominence of the sulci and sylvian fissures with chronic bifrontal and biparietal small vessel ischemic change." Consultation with oncology indicates that the patient is a "great candidate for hospice." Patient was discharged into her daughter's care. Patient is currently being tried for a UTI during this visit. No medication recommendations at this time 799.59 (R41.9) unspecified neurocognitive disorder per history Impression\\plan: Patient is recommended for rescind of IVC and cleared from acute psychiatric services. Patient does not meet IVC criteria per [place] GS 122C. Patient has multiple acute medical concerns that are affecting her mental status. Patient has existing diagnosis of dementia; severe per patient's primary physician. Discharge planning is currently involved. Dr. Hyatt was consulted and the care management this patient; attending physician is agreement with recommendations and disposition.
--- NOTE | 2018-05-10 13:36 | EKG REPORT ---
SEVERITY:- ABNORMAL ECG - SINUS BRADYCARDIA LVH WITH SECONDARY REPOLARIZATION ABNORMALITY : Confirmed by: Yoselyn Salinas MD 10-May-2018 13:36:18
[2018-05-10 13:51] VITALS: BP 129/62
== END 2018-05-10 18:17 | disposition home or self-care (01) ==
LOC: ER 19:52
DX: R45.850 Homicidal ideations (principal); N39.0 Urinary tract infection, site not specified; F03.90 Unspecified dementia, unspecified severity, without behavioral disturbance, psychotic disturbance, mood disturbance, and anxiety; F32.9 Major depressive disorder, single episode, unspecified; F41.9 Anxiety disorder, unspecified; C50.919 Malignant neoplasm of unspecified site of unspecified female breast; Z79.899 Other long term (current) drug therapy; I10 Essential (primary) hypertension
CPT/HCPCS: 93005; 99285; 36415; 87086; 80307 ×4; 85025; 80053; 81001; 93010; A9270; J8499

== ENCOUNTER 2018-05-24 17:35 | Observation (INO) | payer MEDICARE, OTHER ==
--- NOTE | 2018-05-24 18:47 | ER Document Report ---
ED Medical Screen (RME) - General Chief Complaint: Urinary Problem Stated Complaint: URINARY SYMPTOMS Time Seen by Provider: 05/24/18 18:39 Mode of Arrival: Ambulatory Information source: Patient Notes: This is a 78-year-old female with a history of breast cancer, dementia, UTIs, depression. Patient is brought in by family because of urinary incontinence and not being able to care for the patient anymore. The patient was recently made hospice and hospice was out at the house today and hospice recommended going to the emergency room because they could not provide care sufficient for this patient. Patient's primary care doctor is Dr. Patel TRAVEL OUTSIDE OF THE [place] IN LAST 30 DAYS: No - Related Data Allergies/Adverse Reactions: No Known Allergies Allergy (Verified 05/24/18 17:39) Past Medical History - Past Medical History Cardiac Medical History: Reports: Hx Hypertension Renal/ Medical History: Denies: Hx Peritoneal Dialysis Psychiatric Medical History: Reports: Hx Dementia, Hx Depression Past Surgical History: Reports: Hx Section - Immunizations History of Influenza Vaccine for 02/2017 - 07/2017 Season: Yes Influenza Administration Date for 02/2017 - 07/2017 Season: 02/05/17 Physical Exam - Vital signs Vitals: Temp Pulse Resp BP Pulse Ox 97.9 F 62 24 H 156/51 H 98 05/24/18 18:05 05/24/18 18:05 05/24/18 18:05 05/24/18 18:05 05/24/18 18:05 Course - Vital Signs Vital signs: Temp Pulse Resp BP Pulse Ox 97.9 F 62 24 H 156/51 H 98 05/24/18 18:05 05/24/18 18:05 05/24/18 18:05 05/24/18 18:05 05/24/18 18:05
[2018-05-24 19:27] LABS: ABSOLUTE EOSINOPHILS # (AUTO) 0.1 10^3/uL (0.0-0.6); ABSOLUTE LYMPHOCYTES (AUTO) 1.8 10^3/uL (0.5-4.7); ABSOLUTE MONOCYTES (AUTO) 0.7 10^3/uL (0.1-1.4); ABSOLUTE NEUT (AUTO) 6.7 10^3/uL (1.7-8.2); BASOPHILS % (AUTO) 0.4 % (0-2); EOSINOPHILS % (AUTO) 0.7 % (0-6); HEMATOCRIT 40.3 % (36.0-47.0); HEMOGLOBIN 13.9 g/dL (12.0-15.5); LYMPHOCYTES % (AUTO) 18.9 % (13-45); MEAN CORPUSCULAR HEMOGLOBIN 32.6 pg (27.0-33.4); MEAN CORPUSCULAR HGB CONC 34.5 g/dL (32.0-36.0); MEAN CORPUSCULAR VOLUME 94 fl (80-97); MONOCYTES % (AUTO) 7.4 % (3-13); PLATELET COUNT 174 10^3/uL (150-450); RED BLOOD COUNT 4.27 10^6/uL (3.72-5.28); RED CELL DISTRIBUTION WIDTH 12.9 % (11.5-14.0); SEGMENTED NEUTROPHILS % (AUTO) 72.6 % (42-78); TOTAL CELLS COUNTED % (AUTO) 100 %; WHITE BLOOD COUNT 9.3 10^3/uL (4.0-10.5)
[2018-05-24 19:43] LABS: ALANINE AMINOTRANSFERASE 14 U/L (9-52); ALBUMIN 4.4 g/dL (3.5-5.0); ALKALINE PHOSPHATASE 91 U/L (38-126); ANION GAP 8 (5-19); ASPARTATE AMINO TRANSFERASE 23 U/L (14-36); BILIRUBIN,DIRECT 0.2 mg/dL (0.0-0.4); BILIRUBIN,TOTAL 0.5 mg/dL (0.2-1.3); BLOOD UREA NITROGEN 20 mg/dL (7-20); CALCIUM 9.5 mg/dL (8.4-10.2); CARBON DIOXIDE 29 mmol/L (22-30); CHLORIDE 106 mmol/L (98-107); GLUCOSE 124 mg/dL (75-110); POTASSIUM 3.9 mmol/L (3.6-5.0); SODIUM 143.2 mmol/L (137-145); TOTAL PROTEIN 6.8 g/dL (6.3-8.2)
--- NOTE | 2018-05-24 21:38 | ER Document Report ---
ED General <KYLAH WADDELL - Last Filed: 05/24/18 22:46> - General Mode of Arrival: Ambulatory Information source: Patient TRAVEL OUTSIDE OF THE [place] IN LAST 30 DAYS: No <MAITE ROBLEDO - Last Filed: 05/25/18 02:10> - General Chief Complaint: Urinary Problem Stated Complaint: URINARY SYMPTOMS Time Seen by Provider: 05/24/18 18:39 Notes: Patient is a 78-year-old female with advanced dementia and right breast cancer with metastases to the lymphnodes was sent to the emergency department accompanied by daughter seeking admission. Daughter states the patient is currently on hospice and a hospice care worker recommended the patient come to the emergency department to help get placed into a long-term. According to the daughter, the patient is becoming unmanageable and the daughter can no longer provide care. She states the patient frequently wanders outside of her home and has had frequent episodes of urinary incontinence. Due to patient's mental status, she does not provide a meaningful history. Of significance, patient was seen at [facility] in 2017 due to similar issues and was admitted for 8 days. She was not able to be placed in a nursing facility at that time. (MAITE ROBLEDO) - Related Data Allergies/Adverse Reactions: No Known Allergies Allergy (Verified 05/24/18 17:39) Past Medical History - General Information source: Patient - Social History Smoking Status: Never Smoker Chew tobacco use (# tins/day): No Frequency of alcohol use: None Drug Abuse: None Family History: None Patient has suicidal ideation: No Patient has homicidal ideation: No - Past Medical History Cardiac Medical History: Reports: Hx Hypertension Psychiatric Medical History: Reports: Hx Dementia, Hx Depression Past Surgical History: Reports: Hx Section <MAITE ROBLEDO - Last Filed: 05/25/18 02:10> Review of Systems - Review of Systems Constitutional: No symptoms reported EENT: No symptoms reported Cardiovascular: No symptoms reported Respiratory: No symptoms reported Gastrointestinal: No symptoms reported Genitourinary: See HPI, Incontinence Female Genitourinary: No symptoms reported Musculoskeletal: No symptoms reported Skin: No symptoms reported Hematologic/Lymphatic: No symptoms reported Neurological/Psychological: See HPI, Dementia -: Yes All other systems reviewed and negative <MAITE ROBLEDO - Last Filed: 05/25/18 02:10> Physical Exam <MAITE ROBLEDO - Last Filed: 05/25/18 02:10> - Vital signs Vitals: Temp Pulse Resp BP Pulse Ox 97.9 F 62 24 H 156/51 H 98 05/24/18 18:05 05/24/18 18:05 05/24/18 18:05 05/24/18 18:05 05/24/18 18:05 - Notes Notes: GENERAL: Alert, demented at baseline, pleasant. No acute distress. HEAD: Normocephalic, atraumatic. EYES: Pupils equal, round, and reactive to light. Extraocular movements intact. ENT: Oral mucosa moist, tongue midline. NECK: Full range of motion. Supple. Trachea midline. LUNGS: Clear to auscultation bilaterally, no wheezes, rales, or rhonchi. No respiratory distress. Hard right breast mass. HEART: Regular rate and rhythm. No murmurs, gallops, or rubs. ABDOMEN: Soft, non-tender. Non-distended. Bowel sounds present in all 4 quadrants. EXTREMITIES: Moves all 4 extremities spontaneously. +1 pitting edema. NEUROLOGICAL:Alert. Demented at baseline. PSYCH: Demented at baseline. Pleasant. SKIN: Warm, dry, normal turgor. No rashes or lesions noted. (MAITE ROBLEDO) Course - Laboratory Result Diagrams: 05/24/18 14:08 05/24/18 14:08 - Consults Dr. Kowalski Time consulted: 22:45 Consulted provider: will see as inpatient <KYLAH WADDELL - Last Filed: 05/24/18 22:46> - Laboratory Result Diagrams: 05/24/18 14:08 05/24/18 14:08 <MAITE ROBLEDO - Last Filed: 05/25/18 02:10> - Vital Signs Vital signs: Temp Pulse Resp BP Pulse Ox 98.1 F 61 16 145/64 H 98 05/25/18 00:54 05/25/18 00:54 05/25/18 00:54 05/25/18 00:54 05/25/18 00:54 - Laboratory Laboratory results interpreted by me: 05/24/18 05/24/18 14:08 21:25 Glucose 124 H Urine Blood MODERATE H Urine Urobilinogen 2.0 H Discharge - Discharge Admitting Provider: Dex Unit Admitted: Medical Floor <KYLAH WADDELL - Last Filed: 05/24/18 22:46> <MAITE ROBLEDO - Last Filed: 05/25/18 02:10> - Discharge Clinical Impression: Dementia Qualifiers: Dementia type: unspecified type Dementia behavioral disturbance: with behavioral disturbance Qualified Code(s): F03.91 - Unspecified dementia with behavioral disturbance Malignant neoplasm of right breast Qualifiers: Breast location: unspecified site of breast Estrogen receptor status: positive Patient sex: female Qualified Code(s): C50.911 - Malignant neoplasm of unspecified site of right female breast Hematuria Qualifiers: Hematuria type: other microscopic Qualified Code(s): R31.29 - Other microscopic hematuria Condition: Stable Disposition: ADMITTED OBSERVATION Scribe Attestation: 05/24/18 22:47 I personally performed the services described in the documentation, reviewed and edited the documentation which was dictated to the scribe in my presence, and it accurately records my words and actions. (KYLAH WADDELL) Scribe Documentation - Scribe Written by Scribe:: Bobby Nichols, 05/24/2018 21:53 acting as scribe for :: Oumar <MAITE ROBLEDO - Last Filed: 05/25/18 02:10>
[2018-05-24 22:03] LABS: APPEARANCE,URINE CLEAR; BILIRUBIN,URINE NEGATIVE (NEGATIVE); CALCIUM OXALATE CRYSTALS,URINE RARE /HPF; COLOR,URINE YELLOW; GLUCOSE, URINE NEGATIVE (NEGATIVE); KETONES,URINE NEGATIVE (NEGATIVE); LEUKOCYTE ESTERASE,URINE NEGATIVE (NEGATIVE); NITRITE,URINE NEGATIVE (NEGATIVE); PROTEIN,URINE NEGATIVE (NEGATIVE); URINE SPECIFIC GRAVITY 1.019
[2018-05-25] MEDS ORDERED: TRAMADOL HCL 50 MG TABLET PO PRN ×2 (06:06→08:23)
[2018-05-25] MEDS ORDERED: DONEPEZIL HCL 5 MG TABLET PO SCH ×3 (08:30→22:00)
[2018-05-25] MEDS ORDERED: LETROZOLE 2.5 MG TABLET PO SCH (10:00)
[2018-05-25] MEDS ORDERED: BUSPIRONE HCL 10 MG TABLET PO SCH (10:00)
[2018-05-25] MEDS: LETROZOLE 2.5 MG TABLET PO SCH (11:08)
[2018-05-25] MEDS: BUSPIRONE HCL 10 MG TABLET PO SCH ×2 (16:38→22:38)
--- NOTE | 2018-05-25 22:05 | PDOC H&P ---
History of Present Illness Admission Date/PCP: 05/24/18 22:52 History of Present Illness: CHINTAN PEGUERO is a 78 year old female, A very pleasant female with a history of advanced dementia, right breast cancer she was brought to the emergency room by her family for evaluation of confusion. No history could be obtained on this patient because of her confusion on review of the blood work that was done in the emergency room she has microscopic hematuria of unknown etiology. Past Medical History Cardiac Medical History: Reports: Hypertension Malignancy Medical History: Reports: Breast Cancer Psychiatric Medical History: Reports: Dementia, Depression Past Surgical History Past Surgical History: Reports: Section Social History Smoking Status: Never Smoker Frequency of Alcohol Use: None Hx Recreational Drug Use: No Drugs: None Hx Prescription Drug Abuse: No - Advance Directive Resuscitation Status: Full Code Family History Family History: None Parental Family History Reviewed: Yes Children Family History Reviewed: Yes Sibling(s) Family History Reviewed.: Yes Medication/Allergy Home Medications: Buspirone HCl [Buspar 15 mg Tablet] 15 mg PO Q12 05/24/18 Donepezil HCl [Aricept 5 mg Tablet] 5 mg PO QHS 05/24/18 Letrozole [Femara 2.5 Mg Tablet] 2.5 mg PO DAILY 05/24/18 Tramadol HCl [Ultram 50 mg Tablet] 50 mg PO Q6HP PRN 05/24/18 Allergies/Adverse Reactions: No Known Allergies Allergy (Verified 05/24/18 17:39) Review of Systems ROS unobtainable: Due to mental status Physical Exam Vital Signs: Temp Pulse Resp BP Pulse Ox 98.5 F 83 16 139/70 H 96 05/25/18 19:49 05/25/18 19:49 05/25/18 19:49 05/25/18 19:49 05/25/18 19:49 Intake & Output 05/24/18 05/25/18 05/26/18 06:59 06:59 06:59 Intake Total 837 Balance 837 Weight 56.6 kg General appearance: PRESENT: no acute distress Eye exam: PRESENT: PERRLA Neck exam: PRESENT: full ROM Respiratory exam: PRESENT: clear to auscultation cipriano Cardiovascular exam: PRESENT: RRR, +S1, +S2 GI/Abdominal exam: PRESENT: normal bowel sounds, soft Rectal exam: PRESENT: deferred Neurological exam: PRESENT: alert, CN II-XII grossly intact Skin exam: PRESENT: dry, intact, warm Results Laboratory Results: 05/24/18 14:08 05/24/18 14:08 05/24/18 21:25 Urine Color YELLOW Urine Appearance CLEAR Urine pH 5.0 Ur Specific [place] 1.019 Urine Protein NEGATIVE Urine Glucose (UA) NEGATIVE Urine Ketones NEGATIVE Urine Blood MODERATE H Urine Nitrite NEGATIVE Ur Leukocyte Esterase NEGATIVE Urine WBC (Auto) 5 Urine RBC (Auto) 57 Assessment & Plan - Diagnosis (1) Confusion Is this a current diagnosis for this admission?: Yes Plan: The last time she was admitted she did not meet criteria for inpatient care, that will enable her to be placed in the [facility] , she is in the hospital again for evaluation of confusion which is her baseline, again I did not see any clear acute event that will enable us to admit him to the hospital for inpatient care unfortunately family is not able to care for this patient (2) Dementia Qualifiers: Dementia type: Alzheimer's disease Alzheimer's disease onset: unspecified onset Is this a current diagnosis for this admission?: Yes (3) Breast cancer, right Qualifiers: Breast location: unspecified site of breast Estrogen receptor status: positive Patient sex: female Qualified Code(s): C50.911 - Malignant neoplasm of unspecified site of right female breast; Z17.0 - Estrogen receptor positive status [ER+] Is this a current diagnosis for this admission?: Yes
[2018-05-25] MEDS: DONEPEZIL HCL 5 MG TABLET PO SCH (22:37)
[2018-05-26] MEDS: BUSPIRONE HCL 10 MG TABLET PO SCH ×3 (05:44→22:39)
--- NOTE | 2018-05-26 10:51 | PDOC PROGRESS REPORT ---
Subjective Progress Note for:: 05/26/18 Subjective:: Patient has very advanced dementia and the right-sided breast cancers which pretty much estrogen therapy Patients basically confuse most likely from advanced dementia brought to the emergency department and the daughter unable to take care of the patient's Patient's currently denied any chest pain denied any shortness of the breath Pleasant dementia Reason For Visit: DEMENTIA Physical Exam Vital Signs: Temp Pulse Resp BP Pulse Ox 97.7 F 59 L 19 173/75 H 99 05/26/18 08:01 05/26/18 08:01 05/26/18 08:01 05/26/18 08:01 05/26/18 08:01 Intake & Output 05/25/18 05/26/18 05/27/18 06:59 06:59 06:59 Intake Total 1455 Balance 1455 Weight 56.6 kg 57.7 kg General appearance: PRESENT: no acute distress, well-developed, well-nourished Head exam: PRESENT: atraumatic, normocephalic Eye exam: PRESENT: conjunctiva pink, EOMI, PERRLA. ABSENT: scleral icterus Ear exam: PRESENT: normal external ear exam Mouth exam: PRESENT: moist, tongue midline Neck exam: PRESENT: full ROM. ABSENT: carotid bruit, JVD, lymphadenopathy, thyromegaly Respiratory exam: PRESENT: clear to auscultation cipriano Cardiovascular exam: PRESENT: RRR. ABSENT: diastolic murmur, rubs, systolic murmur Pulses: PRESENT: normal dorsalis pedis pul, +2 pedal pulses bilateral Vascular exam: PRESENT: normal capillary refill GI/Abdominal exam: PRESENT: normal bowel sounds, soft. ABSENT: distended, guarding, mass, organolmegaly, rebound, tenderness Rectal exam: PRESENT: deferred Neurological exam: PRESENT: alert, awake. ABSENT: motor sensory deficit Psychiatric exam: PRESENT: appropriate affect, normal mood. ABSENT: homicidal ideation, suicidal ideation Skin exam: PRESENT: dry, intact, warm. ABSENT: cyanosis, rash Results Laboratory Results: 05/24/18 14:08 05/24/18 14:08 Assessment & Plan - Diagnosis (1) Confusion Is this a current diagnosis for this admission?: Yes (2) Dementia Qualifiers: Dementia type: unspecified type Dementia behavioral disturbance: with behavioral disturbance Qualified Code(s): F03.91 - Unspecified dementia with behavioral disturbance Is this a current diagnosis for this admission?: Yes (3) Malignant neoplasm of right breast Qualifiers: Breast location: unspecified site of breast Estrogen receptor status: positive Patient sex: female Qualified Code(s): C50.911 - Malignant neoplasm of unspecified site of right female breast; Z17.0 - Estrogen receptor positive status [ER+] Is this a current diagnosis for this admission?: Yes - Time Time Spent with patient: 15-24 minutes Medications reviewed and adjusted accordingly: Yes Anticipated discharge: SNF Within: Other - Plan Summary Plan Summary: Get the urinary tract infections to rule out Continues to current medications
[2018-05-26] MEDS: LETROZOLE 2.5 MG TABLET PO SCH (10:54)
--- NOTE | 2018-05-26 18:08 | RADIOLOGY REPORT (SQ) ---
EXAM DESCRIPTION: CT ABD/PELVIS WITH IV ONLY COMPLETED DATE/TIME: 05/26/2018 4:44 pm REASON FOR STUDY: microscopic hematuria R31.29 OTHER MICROSCOPIC HEMATURIA COMPARISON: CT chest 04/20/2018 TECHNIQUE: CT scan of the abdomen and pelvis performed using helical scanning technique with dynamic intravenous contrast injection. No oral contrast. Images reviewed with lung, soft tissue, and bone w indows. Reconstructed coronal and sagittal MPR images reviewed. Delayed images for evaluation of the urinary system also acquired. All images stored on PACS. All CT scanners at this facility use dose modulation, iterative reconstruction, and/or weight based d osing when appropriate to reduce radiation dose to as low as reasonably achievable (ALARA). [facility]: Dose Right [facility]: CareDose [facility]: Dose Right [facility]: Teradose 4D [facility]: [place] [employer] CONTRAST TYPE AND DOSE: contrast/concentration: Isovue 350.00 mg/ml; Total Contrast Delivered: 64.0 ml; Total Saline Delivered: 65.0 ml RENAL FUNCTION: GFR > 60. RADIATION DOSE: CT Rad equipment meets quality standard of care and radiation dose reduction techniq ues were employed. CTDIvol: 5.3 - 6.7 mGy. DLP: 599 mGy-cm.. LIMITATIONS: None. FINDINGS: LOWER CHEST: Right breast soft tissue mass again noted, similar to 04/20/2018 exam. LIVER: Normal size. No enhancing masses. No dilated ducts. SPLEEN: Normal size. No focal lesions. PANCREAS: No masses identified. No significant calcifications. No adjacent inflammation or peripancre atic fluid collections. Pancreatic duct not dilated. GALLBLADDER: No calcified stones. No inflammatory changes to suggest cholecystitis. ADRENAL GLANDS: No significant masses. RIGHT KIDNEY AND URETER: No cysts identified. No solid masses identified. No calcified stones. No hyd ronephrosis or hydroureter. LEFT KIDNEY AND URETER: No cysts identified. No solid masses identified. No calcified stones. No hydr onephrosis or hydroureter. AORTA AND VESSELS: No aneurysm. No dissection. Renal arteries, SMA, celiac without significant stenos is. RETROPERITONEUM: No bulky retroperitoneal adenopathy. BOWEL AND PERITONEAL CAVITY: No obstruction or inflammatory changes. No free fluid. APPENDIX: Not visualized. PELVIS: No mass. No free fluid. Unremarkable bladder. ABDOMINAL WALL: No masses. No hernias. BONES: No acute findings. OTHER: No other significant finding. IMPRESSION: NO ACUTE FINDINGS IN THE ABDOMEN OR PELVIS ON CT SCAN WITH IV CONTRAST. Right breast soft tissue mass again noted, similar to 04/20/2018 exam. TECHNICAL DOCUMENTATION: JOB ID: [id number] Quality ID # [id number]: Final reports with documentation of one or more dose reduction techniques (e.g., Au tomated exposure control, adjustment of the mA and/or kV according to patient size, use of iterative reconstruction technique) 2010 [employer]- All Rights Reserved Reading location - IP/workstation name: [email or web address]
[2018-05-26] MEDS: LORAZEPAM INJ 2 MG/1 ML VIAL IV PRN (19:38)
[2018-05-26] MEDS ORDERED: LORAZEPAM INJ 2 MG/1 ML VIAL ONE (19:38)
[2018-05-26] MEDS: DONEPEZIL HCL 5 MG TABLET PO SCH (22:39)
[2018-05-27] MEDS: BUSPIRONE HCL 10 MG TABLET PO SCH ×3 (05:03→22:38)
[2018-05-27] MEDS: LETROZOLE 2.5 MG TABLET PO SCH (10:04)
[2018-05-27] MEDS: LORAZEPAM INJ 2 MG/1 ML VIAL IV PRN (11:19)
--- NOTE | 2018-05-27 13:24 | PDOC PROGRESS REPORT ---
Subjective Progress Note for:: 05/27/18 Subjective:: Patient is currently doing fair Very pleasant no chest pain no short of breath no abdominal pain Patient CT scan of the abdomen and pelvis ordered due to the hematuria was all stable Was very agitated requiring Ativan last night but currently all stable Reason For Visit: DEMENTIA Physical Exam Vital Signs: Temp Pulse Resp BP Pulse Ox 98.1 F 58 L 16 145/66 H 97 05/27/18 07:45 05/27/18 07:45 05/27/18 07:45 05/27/18 07:45 05/27/18 07:45 Intake & Output 05/26/18 05/27/18 05/28/18 06:59 06:59 06:59 Intake Total 1455 1226 Balance 1455 1226 Weight 57.7 kg 60.1 kg General appearance: PRESENT: no acute distress, well-developed, well-nourished Head exam: PRESENT: atraumatic, normocephalic Eye exam: PRESENT: conjunctiva pink, EOMI, PERRLA. ABSENT: scleral icterus Ear exam: PRESENT: normal external ear exam Mouth exam: PRESENT: moist, tongue midline Neck exam: PRESENT: full ROM. ABSENT: carotid bruit, JVD, lymphadenopathy, thyromegaly Cardiovascular exam: PRESENT: RRR. ABSENT: diastolic murmur, rubs, systolic murmur Vascular exam: PRESENT: normal capillary refill GI/Abdominal exam: PRESENT: normal bowel sounds, soft. ABSENT: distended, guarding, mass, organolmegaly, rebound, tenderness Rectal exam: PRESENT: deferred Neurological exam: PRESENT: alert, awake. ABSENT: motor sensory deficit Psychiatric exam: PRESENT: appropriate affect, normal mood. ABSENT: homicidal ideation, suicidal ideation Skin exam: PRESENT: dry, intact, warm. ABSENT: cyanosis, rash Results Laboratory Results: 05/24/18 14:08 05/24/18 14:08 05/24/18 21:25 Catheterized Urine Urine Culture - Final NO GROWTH 2 DAYS Impressions: Abdomen/Pelvis CT 05/26/18 00:00 IMPRESSION: NO ACUTE FINDINGS IN THE ABDOMEN OR PELVIS ON CT SCAN WITH IV CONTRAST. Right breast soft tissue mass again noted, similar to 04/20/2018 exam. Assessment & Plan - Diagnosis (1) Confusion Is this a current diagnosis for this admission?: Yes (2) Dementia Qualifiers: Dementia type: unspecified type Dementia behavioral disturbance: with behavioral disturbance Qualified Code(s): F03.91 - Unspecified dementia with behavioral disturbance Is this a current diagnosis for this admission?: Yes (3) Malignant neoplasm of right breast Qualifiers: Breast location: unspecified site of breast Estrogen receptor status: positive Patient sex: female Qualified Code(s): C50.911 - Malignant neoplasm of unspecified site of right female breast; Z17.0 - Estrogen receptor positive status [ER+] Is this a current diagnosis for this admission?: Yes - Time Time Spent with patient: 15-24 minutes Medications reviewed and adjusted accordingly: Yes Anticipated discharge: SNF Within: Other - Plan Summary Plan Summary: Currently all stable continues to current medications
[2018-05-27] MEDS: DONEPEZIL HCL 5 MG TABLET PO SCH (22:38)
[2018-05-28] MEDS: BUSPIRONE HCL 10 MG TABLET PO SCH ×3 (05:10→21:19)
[2018-05-28] MEDS: LETROZOLE 2.5 MG TABLET PO SCH (08:35)
[2018-05-28] MEDS: DONEPEZIL HCL 5 MG TABLET PO SCH (21:19)
[2018-05-28] MEDS: LORAZEPAM INJ 2 MG/1 ML VIAL IV PRN (21:19)
--- NOTE | 2018-05-28 22:41 | PDOC DISCHARGE SUMMARY ---
General - Admit/Disc Date/PCP Admission Date/Primary Care Provider: 05/24/18 22:52 Discharge Date: 05/28/18 - Discharge Diagnosis (1) Confusion Is this a current diagnosis for this admission?: Yes (2) Dementia Is this a current diagnosis for this admission?: Yes (3) Breast cancer, right Is this a current diagnosis for this admission?: Yes - Additional Information Resuscitation Status: Full Code Home Medications: RX: Buspirone HCl [Buspar 15 mg Tablet] 15 mg PO Q12 05/24/18 RX: Donepezil HCl [Aricept 5 mg Tablet] 5 mg PO QHS 05/24/18 RX: Letrozole [Femara 2.5 mg Tablet] 2.5 mg PO DAILY 05/24/18 RX: Tramadol HCl [Ultram 50 mg Tablet] 50 mg PO Q6HP PRN 05/24/18 History of Present Illness History of Present Illness: CHINTAN PEGUERO is a 78 year old female, A very pleasant female with a history of advanced dementia, right breast cancer she was brought to the emergency room by her family for evaluation of confusion. No history could be obtained on this patient because of her confusion on review of the blood work that was done in the emergency room she has microscopic hematuria of unknown etiology. Hospital Course Hospital Course: She has dementia with baseline confusion, the urine dipstick demonstrated microscopic hematuria, CT scan of pelvis and abdomen with contrast was obtained, it was negative for any acute pathology. The challenge for this patient though is confusion from dementia and inability of daughter to take care of her unfortunately she does not meet inpatient hospital criteria, she can be transferred to shelter for rehabilitation according to Medicare rules on she does not have long-term Medicaid for shelter placement. This is more of a social issue more than a medical problem, this is for discharge planning/healthcare social worker to undo from a medical standpoint she could be discharged . Physical Exam Vital Signs: Temp Pulse Resp BP Pulse Ox 98.1 F 71 16 148/74 H 96 05/28/18 19:41 05/28/18 19:41 05/28/18 19:41 05/28/18 19:41 05/28/18 19:41 Intake & Output 05/27/18 05/28/18 05/29/18 06:59 06:59 06:59 Intake Total 1226 1606 1214 Balance 1226 1606 1214 Weight 60.1 kg General appearance: PRESENT: no acute distress Eye exam: PRESENT: PERRLA Respiratory exam: PRESENT: clear to auscultation cipriano Cardiovascular exam: PRESENT: +S1, +S2 GI/Abdominal exam: PRESENT: soft Neurological exam: PRESENT: alert Results Laboratory Results: 05/24/18 14:08 05/24/18 14:08 Impressions: Abdomen/Pelvis CT 05/26/18 00:00 IMPRESSION: NO ACUTE FINDINGS IN THE ABDOMEN OR PELVIS ON CT SCAN WITH IV CONTRAST. Right breast soft tissue mass again noted, similar to 04/20/2018 exam. Qualifiers - * PATIENT BEING DISCHARGED WITH ANY OF THE FOLLOWING DIAGNOSIS: No
[2018-05-29] MEDS: BUSPIRONE HCL 10 MG TABLET PO SCH ×2 (06:25→13:39)
[2018-05-29] MEDS: LETROZOLE 2.5 MG TABLET PO SCH (09:45)
[2018-05-29] MEDS: LORAZEPAM INJ 2 MG/1 ML VIAL IV PRN (20:17)
[2018-05-30] MEDS: DONEPEZIL HCL 5 MG TABLET PO SCH (03:05)
[2018-05-30] MEDS: BUSPIRONE HCL 10 MG TABLET PO SCH ×3 (03:05→14:20)
[2018-05-30] MEDS: LORAZEPAM INJ 2 MG/1 ML VIAL IV PRN (06:27)
[2018-05-30] MEDS: LETROZOLE 2.5 MG TABLET PO SCH (10:11)
[2018-05-30 17:56] VITALS: BP 137/65
== END 2018-05-30 18:45 | disposition home or self-care (01) ==
LOC: ER 17:35 → INTOOBSV 22:52 → OBSVTOIN 22:52 → EH 22:52 → 4S 05-25 01:17
PROVIDERS: ADMIT Internal Medicine; ATTEND Internal Medicine
DX: G30.9 Alzheimer's disease, unspecified (principal); F02.81 Dementia in other diseases classified elsewhere, unspecified severity, with behavioral disturbance; F05 Delirium due to known physiological condition; Z91.83 Wandering in diseases classified elsewhere; C50.911 Malignant neoplasm of unspecified site of right female breast; R31.29 Other microscopic hematuria; R45.1 Restlessness and agitation; Z17.0 Estrogen receptor positive status [ER+]; C77.9 Secondary and unspecified malignant neoplasm of lymph node, unspecified; R32 Unspecified urinary incontinence; R60.0 Localized edema; Z79.899 Other long term (current) drug therapy; Z74.8 Other problems related to care provider dependency
CPT/HCPCS: 99285; 51701; 36415; 87086; 85025; 80053; 81001; 74177; G0378 ×6; A9270 ×16; J2060 ×5; J3490

== ENCOUNTER 2019-02-13 20:22 | Emergency (ER) | payer MEDICARE, OTHER ==
--- NOTE | 2019-02-13 22:30 | ER Document Report ---
ED Fall - General Chief Complaint: Fall Injury Stated Complaint: HEAD INJURY/ALTERED MENTAL STATUS Time Seen by Provider: 02/13/19 22:29 Mode of Arrival: Stretcher Information source: Outside Facility Records Cannot obtain history due to: Dementia Notes: HISTORY OF PRESENT ILLNESS: Patient is a 78-year-old female with a past medical history of dementia who presents with possible mechanical fall from her bed. Patient cannot answer questions, therefore information is obtained by facility staff and EMS. They report the patient was found beside her bed, apparently falling, was unwitnessed. They reported she had normal behavior prior to her presentation. Mechanism of injury: Fall Location: Posterior scalp Onset: Prior to arrival Provocation: Unknown Quality: Aching Radiation: None Severity: Mild Timing: Constant Numbness/Tingling: None Associated symptoms: No fevers or chills, no confusion or disorientation above baseline REVIEW OF SYSTEMS: CONSTITUTIONAL : Denies fever or chills, no sweats. Denies recent illness. EENT: Denies nasal or sinus congestion. CARDIOVASCULAR: Denies chest pain. RESPIRATORY: Denies cough, cold, or chest congestion. GASTROINTESTINAL: Denies nausea, vomiting, or diarrhea. GENITOURINARY: Denies difficulty urinating, painful urination, burning, frequency, or blood in urine. MUSCULOSKELETAL: Denies neck or back pain or joint pain or swelling. SKIN: Denies rash or skin lesions. HEMATOLOGIC : Denies easy bruising or bleeding. LYMPHATIC: Denies swollen, enlarged glands. NEUROLOGICAL: Denies weakness or trouble walking. PSYCHIATRIC: Denies anxiety or stress or depression. All other systems reviewed and negative. PHYSICAL EXAMINATION: GENERAL: Frail-appearing, well-nourished and in no acute distress. HEAD: Small 2 cm abrasion to the posterior occiput, bleeding is controlled. Normocephalic. No scalp deformity, depression, or crepitance. EYES: Pupils are 2mm and equal/round/reactive to light, extraocular movements intact, sclera anicteric, conjunctiva are normal. ENT: Nares patent bilaterally, oropharynx clear without exudates or palatal petechia. Moist mucous membranes. No tonsil hypertrophy. NECK: Normal range of motion, supple without lymphadenopathy. LUNGS: Breath sounds present, equal, and clear to auscultation bilaterally. No wheezes, rales, or rhonchi. HEART: Regular rate and rhythm without murmurs, rubs, or gallops. 2+ peripheral pulses. Normal capillary refill. ABDOMEN: Soft, nontender, nondistended. Normoactive bowel sounds. No guarding, no rebound. No masses appreciated. BACK: Normal contour, no midline tenderness. Rectal exam deferred. GENITAL/PELVC: Deferred. EXTREMITIES: Normal range of motion, no obvious deformity. No pitting or edema. No cyanosis and normal capillary refill <2 seconds. NEUROLOGICAL: No focal neurological deficits. Moves all extremities spontaneously and on command. PSYCH: Normal mood, normal affect. No suicidal thoughts/ideations. No homicidal thoughts/ideations. No hallucinations. SKIN: Warm, dry, normal turgor, no rashes or lesions noted. ASSESSMENT AND PLAN: This patient is a 78-year-old female who presents with posterior scalp abrasion after mechanical fall at her living facility. Concern for intracranial pathology. 1. Will obtain CT scan of the head. 2. Will observe and reassess. TRAVEL OUTSIDE OF THE [place] IN LAST 30 DAYS: No - HPI Occurred: Just prior to arrival Where: Home Context: Fell from sitting Associated symptoms: None Location of injury/pain: Head Quality of pain: No pain Severity: None Pain Level: Denies - Related data Allergies/Adverse Reactions: No Known Allergies Allergy (Verified 05/24/18 17:39) Past Medical History - General Information source: Emergency Med Personnel, Outside Facility Records Cannot obtain history due to: Dementia - Social History Smoking Status: Never Smoker Chew tobacco use (# tins/day): No Frequency of alcohol use: None Drug Abuse: None Lives with: Residential Family History: None Patient has suicidal ideation: No Patient has homicidal ideation: No - Past Medical History Cardiac Medical History: Reports: Hx Hypertension Pulmonary Medical History: Reports: None EENT Medical History: Reports: None Neurological Medical History: Reports: Other - History of dementia Endocrine Medical History: Reports: None Renal/ Medical History: Reports: None. Denies: Hx Peritoneal Dialysis Malignancy Medical History: Reports: Hx Breast Cancer GI Medical History: Reports: None Musculoskeletal Medical History: Reports None Skin Medical History: Reports None Psychiatric Medical History: Reports: Hx Dementia, Hx Depression Traumatic Medical History: Reports: None Infectious Medical History: Reports: None Past Surgical History: Reports: Hx Section - Immunizations Immunizations up to date: Yes Hx Diphtheria, Pertussis, Tetanus Vaccination: Yes Review of Systems - Review of Systems Constitutional: No symptoms reported EENT: No symptoms reported Cardiovascular: No symptoms reported Respiratory: No symptoms reported Gastrointestinal: No symptoms reported Genitourinary: No symptoms reported Female Genitourinary: No symptoms reported Musculoskeletal: No symptoms reported Skin: No symptoms reported Hematologic/Lymphatic: No symptoms reported Neurological/Psychological: No symptoms reported -: Yes All other systems reviewed and negative Physical Exam - Vital signs Vitals: Temp Pulse Resp BP Pulse Ox 98.6 F 72 16 152/58 H 98 02/13/19 20:39 02/13/19 20:39 02/13/19 20:39 02/13/19 20:39 02/13/19 20:39 Interpretation: Normal Course - Re-evaluation Re-evalutation: 02/14/19 01:58 CT scan shows small traumatic subretinal hemorrhage to the left frontoparietal area with an associated likely acute on chronic small subdural hemorrhage. Trauma surgery at tertiary center, Dr. Abbott, recommends the patient is safe to be discharged back to her living facility. He reports that she would not be a surgical candidate and given her benign appearance and overall nonfocal exam, there is little to be gained by transferring her for observation. Patient has been observed in the emergency department for several hours. Will discharge the patient home with strict return precautions and follow-up with primary care. - Vital Signs Vital signs: Temp Pulse Resp BP Pulse Ox 98.6 F 72 16 152/58 H 98 02/13/19 20:39 02/13/19 20:39 02/13/19 20:39 02/13/19 20:39 02/13/19 20:39 - Diagnostic Test Radiology reviewed: Image reviewed, Reports reviewed - Consults Dr. Abbott ([facility]) Time consulted: 00:18 Reason for consultation: 02/14/19 00:19 Per recommendations, Dr. Abbott states "the patient is heavily demented and there would be no benefit of hospitalization or surgical intervention at this point. The patient can be safely discharged back to her living facility, and I recommend giving oral Keppra for 7 days for seizure prophylaxis." Discharge - Discharge Clinical Impression: Chronic subdural hematoma Fall Qualifiers: Encounter type: initial encounter Qualified Code(s): W19.XXXA - Unspecified fall, initial encounter Condition: Good Disposition: HOME, SELF-CARE Instructions: Abrasions ([facility]) Additional Instructions: You have been evaluated in the Emergency Department for falling, striking the back of your head on the ground. While here, you had a CT scan that showed a small bleed around your brain. However, trauma surgery at [facility] believes it is stable and you will not require observation or surgery. You are safe to be discharged home. Please follow-up with your primary physician as instructed in one week to be rechecked. Return to the Emergency Department if you experience confusion, trouble walking, vision changes, uncontrollable headaches, or any other concerning symptoms. Print Language: Bulgarian
--- NOTE | 2019-02-13 23:38 | RADIOLOGY REPORT (SQ) ---
EXAM DESCRIPTION: CT HEAD WITHOUT IV CONTRAST COMPLETED DATE/TME: 02/13/2019 22:30 CLINICAL HISTORY: 78 years, Female, Fall COMPARISON: Prior CT head from 04/24/2018 TECHNIQUE: Noncontrast CT of the performed. Coronal and sagittal reformations were created. Images stored on PACS. All CT scanners at this facility use dose modulation, iterative reconstruction, and/or weight based dosing when appropriate to reduce radiation dose to as low as reasonably achievable (ALARA). [facility]: Dose Right [facility]: CareDose [facility]: Dose Right [facility]: Teradose 4D [facility]: QuadROI LIMITATIONS: None. FINDINGS: Evaluation of the brain parenchyma reveals mild periventricular and patchy subcortical white matter low attenuation. A few foci of serpiginous hyperdensity are noted about the left frontoparietal convexity, best visualized on images 21 through 25 of series 2. These areas of hyperdensity interdigitate the sulcal spaces of the left frontal and parietal lobes. In addition, there is potentially a component of an acute on chronic subdural fluid collection located about the left frontoparietal convexity as well, best visualized on the coronal and sagittal reformations (image 37 of series 400, 5 mm in thickness). Ventricles and sulcal spaces are mildly enlarged. Globes and orbits show no acute abnormality. Paranasal sinuses and mastoid air cells are clear. No depressed skull fractures. IMPRESSION: Small amount of subarachnoid hemorrhage located within the left frontoparietal region. Suspect an additional component of an acute on chronic subdural hematoma along the left cerebral convexity. No midline shift or mass effect. Mild chronic microvascular ischemic change with moderate generalized atrophy. THIS REPORT CONTAINS FINDINGS THAT MAY BE CRITICAL TO PATIENT CARE: The findings were verbally discussed via telephone conference with Dr. KAILYN BREWER by Dr. Stanley on 02/13/2019 10:34 PM CDT .The results were acknowledged and understood. TECHNICAL DOCUMENTATION: Quality ID # 436: Final reports with documentation of one or more dose reduction techniques (e.g., Automated exposure control, adjustment of the mA and/or kV according to patient size, use of iterative reconstruction technique) copyright 2011 [employer] All Rights Reserved
[2019-02-14 05:33] VITALS: BP 133/63
== END 2019-02-14 05:34 | disposition home or self-care (01) ==
LOC: ER 20:22
DX: I62.03 Nontraumatic chronic subdural hemorrhage (principal); S00.01XA Abrasion of scalp, initial encounter; S09.90XA Unspecified injury of head, initial encounter; R41.82 Altered mental status, unspecified; F03.90 Unspecified dementia, unspecified severity, without behavioral disturbance, psychotic disturbance, mood disturbance, and anxiety; W06.XXXA Fall from bed, initial encounter
CPT/HCPCS: 70450; 99284

== ENCOUNTER 2019-12-26 16:05 | Emergency (ER) | payer MEDICARE, OTHER ==
--- NOTE | 2019-12-26 17:14 | RADIOLOGY REPORT (SQ) ---
EXAM DESCRIPTION: KNEE RIGHT 3 VIEWS IMAGES COMPLETED DATE/TIME: 12/26/2019 4:44 pm REASON FOR STUDY: pain, swelling COMPARISON: None. NUMBER OF VIEWS: Two views. TECHNIQUE: AP and lateral radiographic images acquired of the right knee. LIMITATIONS: None. FINDINGS: MINERALIZATION: Osteopenia. BONES: No acute fracture or dislocation. No worrisome bone lesions. JOINT: No effusion. SOFT TISSUES: Medial and prepatellar soft tissue swelling. No foreign body. OTHER: No other significant finding. IMPRESSION: No fracture or foreign body. TECHNICAL DOCUMENTATION: JOB ID: [id number] 2010 [employer]- All Rights Reserved Reading location - IP/workstation name: [email or web address]
[2019-12-26] MEDS ORDERED: ACETAMINOPHEN 325 MG TABLET PO ONE (18:18)
[2019-12-26 18:23] LABS: ABSOLUTE LYMPHOCYTES (AUTO) 1.5 10^3/uL (0.5-4.7); ABSOLUTE MONOCYTES (AUTO) 1.2 10^3/uL (0.1-1.4); ABSOLUTE NEUT (AUTO) 12.5 10^3/uL (1.7-8.2); BASOPHILS % (AUTO) 0.3 % (0-2); EOSINOPHILS % (AUTO) 0.3 % (0-6); HEMOGLOBIN 13.4 g/dL (12.0-15.5); LYMPHOCYTES % (AUTO) 9.7 % (13-45); MEAN CORPUSCULAR HGB CONC 34.2 g/dL (32.0-36.0); MEAN CORPUSCULAR VOLUME 93 fl (80-97); MONOCYTES % (AUTO) 7.8 % (3-13); PLATELET COUNT 183 10^3/uL (150-450); RED BLOOD COUNT 4.18 10^6/uL (3.72-5.28); RED CELL DISTRIBUTION WIDTH 13.1 % (11.5-14.0); SEGMENTED NEUTROPHILS % (AUTO) 81.9 % (42-78); TOTAL CELLS COUNTED % (AUTO) 100 %; WHITE BLOOD COUNT 15.3 10^3/uL (4.0-10.5)
--- NOTE | 2019-12-26 18:36 | ER Document Report ---
ED Extremity Problem, Lower - General TRAVEL OUTSIDE OF THE [place] IN LAST 30 DAYS: No <DENIS GUTIÉRREZ - Last Filed: 12/26/19 22:09> <EDIL PRINCE - Last Filed: 12/26/19 22:25> - General Chief Complaint: Knee Injury Stated Complaint: KNEE SWELLING Primary Care Provider: ORTHOPEDICS [Provider Group] - Follow up as needed Notes: 79-year-old female with past medical history of dementia presenting with right knee pain and swelling. Patient is a poor historian due to her dementia. She initially states that she had injured her knee, and then reports that she did not hit her knee. Continues to state that her right knee hurts. She is alert. Oriented to self only. (DENIS GUTIÉRREZ) - Related Data Allergies/Adverse Reactions: No Known Allergies Allergy (Verified 05/24/18 17:39) Past Medical History - Social History Smoking Status: Unknown if Ever Smoked Family History: None - Past Medical History Cardiac Medical History: Reports: Hx Hypertension Renal/ Medical History: Denies: Hx Peritoneal Dialysis Malignancy Medical History: Reports: Hx Breast Cancer Psychiatric Medical History: Reports: Hx Dementia, Hx Depression Past Surgical History: Reports: Hx Breast Surgery, Hx Section - Immunizations Immunizations up to date: Yes Hx Diphtheria, Pertussis, Tetanus Vaccination: Yes <DENIS GUTIÉRREZ - Last Filed: 12/26/19 22:09> Review of Systems - Review of Systems -: Yes ROS unobtainable due to patient's medical condition <DENIS GUTIÉRREZ - Last Filed: 12/26/19 22:09> Physical Exam - Vital signs Interpretation: Hypertensive <DENIS GUTIÉRREZ - Last Filed: 12/26/19 22:09> - Vital signs Vitals: Temp Pulse Resp BP Pulse Ox 98.6 F 63 18 162/77 H 100 12/26/19 16:13 12/26/19 16:13 12/26/19 16:13 12/26/19 16:13 12/26/19 16:13 - Notes Notes: Adult General: GENERAL: Alert, interacts well. No acute distress HEAD: Normocephalic, atraumatic EYES: Extraocular movements intact. ENT: Airway patent. Nares patent. NECK: Full range of motion. Supple. Trachea midline. No lymphadenopathy. LUNGS: No respiratory distress. HEART: Regular rate and rhythm. ABDOMEN: Nondistended. GENITOURINARY: Deferred EXTREMITIES: Right knee is diffusely swollen, tender on the medial aspect, no erythema or warmth, few blisters on medial aspect of knee, with associated abrasion on anterior knee, associated ecchymosis on medial knee. Moves all 4 extremities spontaneously. Normal dorsal pedis pulses bilaterally. No cyanosis. (-) anterior drawer and posterior drawer BACK: Moves all extremities. Decreased flexion of right knee NEUROLOGICAL: Alert and oriented to self- hx of dementia. Strength 5/ 5 in all extremities. PSYCH: Normal affect, normal mood. SKIN: See above (DENIS GUTIÉRREZ) Course - Laboratory Result Diagrams: 12/26/19 18:00 <DENIS GUTIÉRREZ - Last Filed: 12/26/19 22:09> - Laboratory Result Diagrams: 12/26/19 18:00 <EDIL PRINCE - Last Filed: 12/26/19 22:25> - Re-evaluation Re-evalutation: 12/26/19 18:38 I called the [facility] facility who state that they do not know when the injury occurred. States she was having a difficult time walking today and noticed the knee swelling after the patient was sitting down and pulled up her pant leg. They are uncertain if she fell on her knee. Patients knee x ray shows no fracture. I discussed with Dr. Prince who agrees this appears traumatic in nature and recommends ordering a CT scan. CT scan shows no fracture. It does show prepatellar swelling and medial swelling. White count is 15.3. Pending official read of lower extremity doppler, was notified by Admeld that there was no DVT or SVT on initial read. Patient is afebrile. Dr. Prince recommends leg immobilizer and follow up with orthopedics. Leg immobilizer ordered. Patient was reevaluated. Resting comfortably in the bed in no acute distress. Will discharge patient home after leg immobilizer placed. 12/26/19 20:35 Discussed with nurse that after leg immobilizer is placed that patient will need post vascular check. Eric Paiz made aware of patient and pending discharge. (DENIS GUTIÉRREZ) 12/26/19 22:23 Patient seen in conjunction with the physician retail administrative assistant, please see her note to correlate with mine. In short this is a 79-year-old female with a history of dementia who can offer no significant history. She has ecchymosis and edema of the knee with medial bullae. Range of motion is limited secondary to pain and swelling. X-ray was reviewed and shows no signs of effusion. This does seem to be more soft tissue swelling. I believe the blisters are secondary to the soft tissue swelling. Given the ecchymosis, I do suspect a traumatic etiology. X- ray and CT scan failed to reveal any significant fractures, but I do believe Ortho follow-up is appropriate. Patient is placed in a knee immobilizer. Ortho referral placed. (EDIL PRINCE) - Vital Signs Vital signs: Temp Pulse Resp BP Pulse Ox 98.6 F 61 18 149/62 H 98 12/26/19 16:13 12/26/19 21:14 12/26/19 16:13 12/26/19 21:14 12/26/19 21:14 - Laboratory Laboratory results interpreted by me: 12/26/19 18:00 WBC 15.3 H Lymph % (Auto) 9.7 L Absolute Neuts (auto) 12.5 H Seg Neutrophils % 81.9 H Discharge <DENIS GUTIÉRREZ - Last Filed: 12/26/19 22:09> <EDIL PRINCE - Last Filed: 12/26/19 22:25> - Discharge Clinical Impression: Knee swelling Knee pain Qualifiers: Chronicity: acute Laterality: right Qualified Code(s): M25.561 - Pain in right knee Condition: Stable Disposition: HOME, SELF-CARE Instructions: Ice & Elevation ([facility]), Knee Immobilizing Splint ([facility]) Additional Instructions: Patient will need to follow up with orthopedics as soon as possible. Can utilize tylenol for pain control. Patient is to return to the emergency department if symptoms worsen or she develops new symptoms. Referrals: ORTHOPEDICS [Provider Group] - Follow up as needed
--- NOTE | 2019-12-26 20:02 | RADIOLOGY REPORT (SQ) ---
EXAM DESCRIPTION: CT RT LOWER EXTREMITY WITHOUT IMAGES COMPLETED DATE/TIME: 12/26/2019 7:46 pm REASON FOR STUDY: knee pain and swelling COMPARISON: None. TECHNIQUE: Axial imaging performed through the Right knee with reformatted coronal and sagittal imaging windowed for bone and soft tissues. Images saved to PAC S. 3D IMAGING: Were 3D images as MIP, SSD, or volume rendering performed at the work station? None LIMITATIONS: None. FINDINGS: SOFT TISSUES: Prepatellar and medial swelling in the soft tissues. No foreign body. BONY STRUCTURES: No fracture or aggressive bone lesion. MINERALIZATION: Osteopenia. OTHER: No other significant finding. IMPRESSION: Soft tissue injury or inflammation. No opaque foreign body. No fracture. Reading location - IP/workstation name: [email or web address]
--- NOTE | 2019-12-26 20:44 | RADIOLOGY REPORT (SQ) ---
EXAM DESCRIPTION: US EXTREMITY VEINS UNILATERAL COMPLETED DATE/TME: 12/26/2019 17:49 CLINICAL HISTORY: 79 years Female swelling of right knee, calf tenderness COMPARISON: None. TECHNIQUE: Duplex imaging performed to evaluate the right lower extremity venous structures. Compression imaging and augmentation imaging performed. The common femoral, superficial femoral, popliteal, greater saphenous and posterior tibial veins were examined. FINDINGS: No thrombus is identified in the right lower extremity venous structures. IMPRESSION: No DVT is identified in the right lower extremity.
[2019-12-26 21:15] VITALS: BP 149/62
== END 2019-12-26 21:15 | disposition home or self-care (01) ==
LOC: ER 16:05
DX: M25.561 Pain in right knee (principal); M79.89 Other specified soft tissue disorders; F03.90 Unspecified dementia, unspecified severity, without behavioral disturbance, psychotic disturbance, mood disturbance, and anxiety; I10 Essential (primary) hypertension
CPT/HCPCS: 99285; 36415; 84550; 85025; 93971; 73562; 73700; A9270

== ENCOUNTER 2020-01-05 10:55 | Inpatient (IN) | payer MEDICARE, OTHER ==
--- NOTE | 2020-01-05 11:43 | ER Document Report ---
ED General - General Chief Complaint: Knee Pain Stated Complaint: RIGHT KNEE PAIN Time Seen by Provider: 01/05/20 11:42 TRAVEL OUTSIDE OF THE [place] IN LAST 30 DAYS: No - HPI Notes: 79-year-old female arrives with knee swelling. HPI is limited from the patient as she has obvious dementia. Per EMS/nursing report, patient has high continue pain and swelling to her right knee. She was started on Keflex and clindamycin by her PCP at some point this week, possibly Monday or Monday. Due to increased swelling she was sent from the alf today. Patient says "mhmm" when asked if it is painful and if she is still walking on the leg. - Related Data Allergies/Adverse Reactions: No Known Allergies Allergy (Verified 01/05/20 11:14) Home Medications: BUSPAR. DIVALPROEX. DONEPEZIL. LETROZOLE. MELATONIN. VITAMIN D3 Past Medical History - General Cannot obtain history due to: Dementia - Social History Smoking Status: Unknown if Ever Smoked Family History: None Patient has homicidal ideation: No - Past Medical History Cardiac Medical History: Reports: Hx Hypertension Renal/ Medical History: Denies: Hx Peritoneal Dialysis Malignancy Medical History: Reports: Hx Breast Cancer Psychiatric Medical History: Reports: Hx Dementia, Hx Depression Past Surgical History: Reports: Hx Breast Surgery, Hx Section - Immunizations Immunizations up to date: Yes Hx Diphtheria, Pertussis, Tetanus Vaccination: Yes Review of Systems - Review of Systems -: Yes ROS unobtainable due to patient's medical condition - Dementia Musculoskeletal: Joint pain Physical Exam - Vital signs Vitals: Temp Pulse Resp BP Pulse Ox 98.5 F 70 18 145/63 H 99 01/05/20 11:30 01/05/20 11:30 01/05/20 11:30 01/05/20 11:30 01/05/20 11:30 - General General appearance: Appears well In distress: None - HEENT Head: Normocephalic, Atraumatic Extraocular movements intact: Yes Pupils: PERRL - Respiratory Breath sounds: Normal - Cardiovascular Rhythm: Regular Normal capillary refill: Yes - Abdominal Tenderness: Nontender - Extremities Notes: Right knee is markedly swollen and erythematous, it is warm to the touch. It is more than double in size when compared to the left knee. There is evidence of a ruptured blister and the skin appears to have some necrosis. There is streaking erythema to the proximal and distal aspects of the lower leg. It is tender to touch. Fluctuant. Decreased range of motion. Additionally there is some ecchymosis to the right distal lateral thigh - Neurological Neuro grossly intact: Yes Cognition: Confused - Psychological Associated symptoms: Other - Pleasantly demented - Skin Skin Temperature: Warm Course - Re-evaluation Re-evalutation: 79-year-old female here with progressing swelling and redness to her right knee. Patient was seen in the emergency department 10 days ago on 12/25. At that time he was deemed to be a nontraumatic fall per notes. She had a negative x-ray, negative DVT study, CT knee showed soft tissue swelling and ultimately no fracture as well. On exam this does have appearance of a septic joint given the red/hot/swollen nature of it. I will be consulting orthopedics. Additional looks like she does have some extending cellulitis down her leg as well, raises concern for failure of outpatient therapy. Given that she had negative CT, less concern for a fracture. Will start empiric coverage with Vanco and Zosyn. Check labs. 01/05/20 12:40 Discussed with orthopedics, Dr. Brownlee and will come see in the ED 01/05/20 13:10 Patient has been seen by Dr. Brownlee, he aspirated the knee and reports that it was blood/hematoma 01/05/20 13:59 called [place], pt's PCP is Tonja Chan. Her nurse states that her knee has continued to swell despite use of antibiotics Patient was admitted to the hospitalist service for further management - Vital Signs Vital signs: Temp Pulse Resp BP Pulse Ox 98.5 F 70 18 145/63 H 99 01/05/20 11:30 01/05/20 11:30 01/05/20 11:30 01/05/20 11:30 01/05/20 11:30 - Laboratory Result Diagrams: 01/05/20 12:04 01/05/20 12:04 Laboratory results interpreted by me: 01/05/20 12:04 C-Reactive Protein 16.7 H Discharge - Discharge Clinical Impression: Cellulitis Qualifiers: Site of cellulitis of extremity: lower extremity Disposition: ADMITTED INPATIENT Unit Admitted: [facility]
[2020-01-05] MEDS ORDERED: VANCOMYCIN HCL INJ 1000 MG VIAL IV ONE (11:53)
[2020-01-05] MEDS ORDERED: PIPERACILLIN/TAZOBACTAM 3.375 GM VIAL IV ONE (11:53)
[2020-01-05 12:26] LABS: ABSOLUTE EOSINOPHILS # (AUTO) 0.2 10^3/uL (0.0-0.6); ABSOLUTE LYMPHOCYTES (AUTO) 2.5 10^3/uL (0.5-4.7); ABSOLUTE NEUT (AUTO) 6.6 10^3/uL (1.7-8.2); BASOPHILS % (AUTO) 0.4 % (0-2); EOSINOPHILS % (AUTO) 1.5 % (0-6); HEMOGLOBIN 12.5 g/dL (12.0-15.5); LYMPHOCYTES % (AUTO) 24.3 % (13-45); MEAN CORPUSCULAR HEMOGLOBIN 32.4 pg (27.0-33.4); MEAN CORPUSCULAR HGB CONC 34.7 g/dL (32.0-36.0); MEAN CORPUSCULAR VOLUME 94 fl (80-97); MONOCYTES % (AUTO) 9.9 % (3-13); PLATELET COUNT 270 10^3/uL (150-450); RED BLOOD COUNT 3.85 10^6/uL (3.72-5.28); RED CELL DISTRIBUTION WIDTH 13.6 % (11.5-14.0); SEGMENTED NEUTROPHILS % (AUTO) 63.9 % (42-78); TOTAL CELLS COUNTED % (AUTO) 100 %; WHITE BLOOD COUNT 10.3 10^3/uL (4.0-10.5)
[2020-01-05] MEDS ORDERED: LIDOCAINE 1% INJ (10 MG/ML) 10 ML MDV INJ ONE (12:40)
[2020-01-05 12:46] LABS: ANION GAP 8 (5-19); BLOOD UREA NITROGEN 14 mg/dL (7-20); C-REACTIVE PROTEIN 16.7 mg/L (<10.0); CALCIUM 9.3 mg/dL (8.4-10.2); CARBON DIOXIDE 29 mmol/L (22-30); CHLORIDE 103 mmol/L (98-107); GLUCOSE 97 mg/dL (75-110); POTASSIUM 4.4 mmol/L (3.6-5.0)
--- NOTE | 2020-01-05 12:46 | RADIOLOGY REPORT (SQ) ---
EXAM DESCRIPTION: KNEE RIGHT 2 VIEWS IMAGES COMPLETED DATE/TIME: 01/05/2020 12:37 pm REASON FOR STUDY: large effusion COMPARISON: 12/26/2019. NUMBER OF VIEWS: Two views. TECHNIQUE: AP and lateral radiographic images acquired of the right knee. LIMITATIONS: None. FINDINGS: MINERALIZATION: Normal. BONES: No acute fracture or dislocation. No worrisome bone lesions. JOINT: No effusion. SOFT TISSUES: Medial and prepatellar soft tissue swelling. No radio-opaque foreign body. OTHER: No other significant finding. IMPRESSION: SOFT TISSUE SWELLING. NO SIGNIFICANT BONY FINDINGS. TECHNICAL DOCUMENTATION: JOB ID: [id number] 2010 [employer]- All Rights Reserved Reading location - IP/workstation name: [email or web address]
--- NOTE | 2020-01-05 13:09 | PDOC CONSULTATION ---
Consultation Consult Date: 01/05/20 Provider Consulted: TK MARTINEZ History of Present Illness Patient complains of: Right knee pain and swelling History of Present Illness: CHINTAN PEGUERO is a 79 year old female with history of dementia. According to the patient she injured her knee but is unaware of exact nature of injury. Reviewing prior emergency room reports there was questionable traumatic event that was not witnessed. The swelling and pain had increased over the past few days. Was started on Keflex as well. Patient states pain is worse with some motion but unable to give for adequate history. Past Medical History Cardiac Medical History: Reports: Hypertension Malignancy Medical History: Reports: Breast Cancer Psychiatric Medical History: Reports: Dementia, Depression Past Surgical History Past Surgical History: Reports: Section Social History Smoking Status: Unknown if Ever Smoked Frequency of Alcohol Use: None Hx Recreational Drug Use: No Drugs: None Hx Prescription Drug Abuse: No Family History Family History: None Parental Family History Reviewed: No Children Family History Reviewed: No Sibling(s) Family History Reviewed.: No Medication/Allergy Home Medications: Buspirone HCl [Buspar 15 mg Tablet] 15 mg PO Q12 05/24/18 Donepezil HCl [Aricept 5 mg Tablet] 10 mg PO QHS 05/24/18 Letrozole [Femara 2.5 mg Tablet] 2.5 mg PO DAILY 05/24/18 Cholecalciferol (Vitamin D3) [Vitamin D3] 1,250 mcg PO FR@1000 12/26/19 Divalproex Sodium [Depakote Sprinkle 125 Mg Capsule] 125 mg PO Q12 12/26/19 Melatonin [Melatonin 3 mg Tablet] 6 mg PO QHS 12/26/19 Allergies/Adverse Reactions: No Known Allergies Allergy (Verified 01/05/20 11:14) Review of Systems ROS unobtainable: Due to mental status Physical Exam Vital Signs: Temp Pulse Resp BP Pulse Ox 98.5 F 70 18 145/63 H 99 01/05/20 11:30 01/05/20 11:30 01/05/20 11:30 01/05/20 11:30 01/05/20 11:30 Intake & Output 01/04/20 01/05/20 01/06/20 06:59 06:59 06:59 Weight 79.379 kg General appearance: PRESENT: no acute distress, cooperative, well-developed, well-nourished Head exam: PRESENT: atraumatic, normocephalic Eye exam: PRESENT: conjunctiva pink, EOMI, PERRLA. ABSENT: scleral icterus Ear exam: PRESENT: normal external ear exam Mouth exam: PRESENT: moist, tongue midline Neck exam: PRESENT: full ROM. ABSENT: carotid bruit, JVD, lymphadenopathy, thyromegaly Respiratory exam: PRESENT: unlabored Cardiovascular exam: PRESENT: RRR. ABSENT: diastolic murmur, rubs, systolic murmur Pulses: PRESENT: normal dorsalis pedis pul, +2 pedal pulses bilateral Vascular exam: PRESENT: normal capillary refill GI/Abdominal exam: PRESENT: normal bowel sounds, soft. ABSENT: distended, guarding, mass, organolmegaly, rebound, tenderness Rectal exam: PRESENT: deferred Musculoskeletal exam: PRESENT: other - Right knee: Swelling/ecchymosis througho ut the knee with palpable fluctuance superficially likely consistent with hematoma. Intact straight leg raise against resistance. Knee range of motion 0 degrees - 100 degrees actively without discomfort. Pain with terminal flexion. No sensory deficits. Erythema along the anterior aspect of the tibia with swelling compared to noninvolved left knee. Intact plantarflexion/dorsiflexion. Neurological exam: PRESENT: alert, awake, oriented to person, CN II-XII grossly intact. ABSENT: motor sensory deficit Psychiatric exam: PRESENT: appropriate affect, normal mood. ABSENT: homicidal ideation, suicidal ideation Skin exam: PRESENT: dry, intact, warm. ABSENT: cyanosis, rash Results Laboratory Results: 01/05/20 12:04 01/05/20 12:04 01/05/20 01/05/20 12:04 12:04 WBC 10.3 RBC 3.85 Hgb 12.5 Hct 36.0 MCV 94 MCH 32.4 MCHC 34.7 RDW 13.6 Plt Count 270 Seg Neutrophils % 63.9 Sodium 139.8 Potassium 4.4 Chloride 103 Carbon Dioxide 29 Anion Gap 8 BUN 14 Creatinine 0.71 Est GFR ( Amer) > 60 Glucose 97 Calcium 9.3 C-Reactive Protein 16.7 H Impressions: Knee X-Ray 01/05/20 11:53 IMPRESSION: SOFT TISSUE SWELLING. NO SIGNIFICANT BONY FINDINGS. Status: Image reviewed by me - Prior CT scan and radiographs have been reviewed consistent with soft tissue swelling no evidence of intra-articular effusion no evidence of fracture Assessment & Plan - Diagnosis (1) Cellulitis Qualifiers: Site of cellulitis of extremity: lower extremity Is this a current diagnosis for this admission?: Yes Plan: Patient's examination findings are consistent with likely trauma resulting in a hematoma there is no evidence of fracture. No joint effusion is noted to suggest septic arthritis. Did attempt aspiration of the hematoma outside area of cellulitis obtaining blood. There is lower extremity cellulitis possibly secondary to her fall. At this point I have recommended antibiotics. Patient may be weightbearing as tolerated. We will continue Martín bandage on the right knee for protection but no further treatment is necessary for patient's hematoma.
[2020-01-05] MEDS ORDERED: ONDANSETRON HCL INJ/PF 4 MG/2 ML SDV IV PRN (15:07)
[2020-01-05] MEDS ORDERED: ACETAMINOPHEN 325 MG TABLET PO PRN (15:07)
[2020-01-05] MEDS ORDERED: OXYCODONE-ACETAMINOPHEN 5-325 MG TABLET PO PRN (15:18)
[2020-01-05] MEDS ORDERED: LORAZEPAM INJ 2 MG/1 ML VIAL IV PRN (15:19)
--- NOTE | 2020-01-05 15:26 | PDOC H&P ---
History of Present Illness Admission Date/PCP: 01/05/2020 Patient complains of: Right knee swelling redness History of Present Illness: CHINTAN PEGUERO is a 79 year old female with history of dementia, anxiety disorder lives in a senior living brought to the emergency room with right knee swelling associated with redness and a blackish discoloration of the skin on the right knee. Patient was here 10 days ago at that time venous Doppler was done which was negative, CT of the lower extremity was done negative for abscess negative for fracture. Patient failed outpatient antibiotic therapy. Patient unable to give any information because of dementia. Most of the information is obtained from ER medical records. I tried to call the family members to get further information but unable to leave a message. Past Medical History Cardiac Medical History: Reports: Hypertension Malignancy Medical History: Reports: Breast Cancer Psychiatric Medical History: Reports: Dementia, Depression Past Surgical History Past Surgical History: Reports: Section Social History Smoking Status: Unknown if Ever Smoked Frequency of Alcohol Use: None Hx Recreational Drug Use: No Drugs: None Hx Prescription Drug Abuse: No - Advance Directive Resuscitation Status: Full Code Family History Family History: None Parental Family History Reviewed: Yes Children Family History Reviewed: Unknown Sibling(s) Family History Reviewed.: Unknown Medication/Allergy Home Medications: Buspirone HCl [Buspar 15 mg Tablet] 15 mg PO Q12 05/24/18 Donepezil HCl [Aricept 5 mg Tablet] 10 mg PO QHS 05/24/18 Letrozole [Femara 2.5 mg Tablet] 2.5 mg PO DAILY 05/24/18 Cholecalciferol (Vitamin D3) [Vitamin D3] 1,250 mcg PO FR@1000 12/26/19 Divalproex Sodium [Depakote Sprinkle 125 Mg Capsule] 125 mg PO Q12 12/26/19 Melatonin [Melatonin 3 mg Tablet] 6 mg PO QHS 12/26/19 Allergies/Adverse Reactions: No Known Allergies Allergy (Verified 01/05/20 11:14) Review of Systems ROS unobtainable: Due to mental status Physical Exam Vital Signs: Temp Pulse Resp BP Pulse Ox 98.5 F 70 18 145/63 H 99 01/05/20 11:30 01/05/20 11:30 01/05/20 11:30 01/05/20 11:30 01/05/20 11:30 Intake & Output 08/01/05/20 01/06/20 06:59 06:59 06:59 Weight 79.379 kg General appearance: PRESENT: cooperative, mild distress Head exam: PRESENT: atraumatic Eye exam: PRESENT: PERRLA Mouth exam: PRESENT: neck supple Teeth exam: PRESENT: poor dentation Neck exam: ABSENT: carotid bruit, JVD, lymphadenopathy, thyromegaly Respiratory exam: PRESENT: decreased breath sounds Cardiovascular exam: PRESENT: tachycardia GI/Abdominal exam: PRESENT: normal bowel sounds, soft. ABSENT: distended, guarding, mass, organolmegaly, rebound, tenderness Rectal exam: PRESENT: deferred Extremities exam: PRESENT: full ROM. ABSENT: calf tenderness, clubbing, pedal edema Musculoskeletal exam: PRESENT: other - Right knee was swollen erythematous with necrotic skin present on the right knee. Right lower leg was erythematous. Neurological exam: PRESENT: alert, CN II-XII grossly intact, other - Patient is unable to communicate because of dementia. Psychiatric exam: PRESENT: appropriate affect, normal mood. ABSENT: homicidal ideation, suicidal ideation Results Laboratory Results: 01/05/20 12:04 01/05/20 12:04 01/05/20 01/05/20 12:04 12:04 WBC 10.3 RBC 3.85 Hgb 12.5 Hct 36.0 MCV 94 MCH 32.4 MCHC 34.7 RDW 13.6 Plt Count 270 Seg Neutrophils % 63.9 Sodium 139.8 Potassium 4.4 Chloride 103 Carbon Dioxide 29 Anion Gap 8 BUN 14 Creatinine 0.71 Est GFR ( Amer) > 60 Glucose 97 Calcium 9.3 C-Reactive Protein 16.7 H Impressions: Knee X-Ray 01/05/20 11:53 IMPRESSION: SOFT TISSUE SWELLING. NO SIGNIFICANT BONY FINDINGS. Assessment and Plan - Diagnosis (1) Septic arthritis Is this a current diagnosis for this admission?: Yes Plan: 01/05/2020-patient is going to be admitted to [facility] for septic arthritis of the right knee. Started on IV cefepime and IV vancomycin. Pharmacy to dose the IV vancomycin. Blood cultures wound cultures urine cultures are requested. GI prophylaxis DVT prophylaxis initiated. MRI of the right lower extremity is requested to rule out abscess and septic arthritis. (2) Dementia Qualifiers: Dementia type: unspecified type Dementia behavioral disturbance: with behavioral disturbance Qualified Code(s): F03.91 - Unspecified dementia with behavioral disturbance Is this a current diagnosis for this admission?: No Plan: 01/05/2020-patient has history of dementia plan is to continue donezepil at this time. (3) Hypertension Qualifiers: Hypertension type: essential hypertension Qualified Code(s): I10 - [place] o (primary) hypertension Is this a current diagnosis for this admission?: No Plan: 01/05/2020-patient has history of chronic essential hypertension plan is to resume the home medications. (4) Sepsis Is this a current diagnosis for this admission?: Yes Plan: 01/05/2020-patient came in with right knee septic arthritis most likely with underlying sepsis. Blood cultures wound cultures are requested, started on IV fluids normal saline 75 cc/h, lactic acid level was requested. Started on IV cefepime and vancomycin at this time. - Time Anticipated Discharge Disposition: Nursing Home Facility Anticipated Discharge Timeframe: 6 days
[2020-01-05] MEDS: PANTOPRAZOLE SODIUM 40 MG TABLET.DR PO SCH (17:00)
[2020-01-05] MEDS: HEPARIN SOD (PORCINE) 5,000 UNIT/ML 1 ML VIAL SUBCUT SCH (21:34)
[2020-01-05] MEDS: NORMAL SALINE 1000 ML 1,000 ML IV PRN (21:34)
[2020-01-05] MEDS: CEFEPIME 1 GM/D5W RTU 1 GM/50 ML RTUPB IV SCH (21:35)
[2020-01-06 01:53] LABS: APPEARANCE,URINE SLIGHTLY-CLOUDY; BILIRUBIN,URINE NEGATIVE (NEGATIVE); COLOR,URINE YELLOW; GLUCOSE, URINE NEGATIVE (NEGATIVE); KETONES,URINE NEGATIVE (NEGATIVE); PROTEIN,URINE NEGATIVE (NEGATIVE); URINE SPECIFIC GRAVITY 1.015
[2020-01-06 05:20] LABS: ABSOLUTE BASOPHILS # (AUTO) 0.1 10^3/uL (0.0-0.2); ABSOLUTE EOSINOPHILS # (AUTO) 0.2 10^3/uL (0.0-0.6); ABSOLUTE MONOCYTES (AUTO) 0.8 10^3/uL (0.1-1.4); ABSOLUTE NEUT (AUTO) 5.6 10^3/uL (1.7-8.2); BASOPHILS % (AUTO) 0.6 % (0-2); HEMATOCRIT 32.5 % (36.0-47.0); HEMOGLOBIN 11.5 g/dL (12.0-15.5); LYMPHOCYTES % (AUTO) 23.1 % (13-45); MEAN CORPUSCULAR HEMOGLOBIN 33.1 pg (27.0-33.4); MEAN CORPUSCULAR HGB CONC 35.3 g/dL (32.0-36.0); MEAN CORPUSCULAR VOLUME 94 fl (80-97); MONOCYTES % (AUTO) 9.4 % (3-13); PLATELET COUNT 254 10^3/uL (150-450); RED BLOOD COUNT 3.47 10^6/uL (3.72-5.28); RED CELL DISTRIBUTION WIDTH 13.3 % (11.5-14.0); SEGMENTED NEUTROPHILS % (AUTO) 64.9 % (42-78); TOTAL CELLS COUNTED % (AUTO) 100 %; WHITE BLOOD COUNT 8.7 10^3/uL (4.0-10.5)
[2020-01-06 05:28] LABS: INTERNATIONAL RATION (INR) 1.12; PROTHROMBIN TIME 14.6 SEC (11.4-15.4)
[2020-01-06 05:48] LABS: ALBUMIN 3.3 g/dL (3.5-5.0); ALKALINE PHOSPHATASE 88 U/L (38-126); ANION GAP 6 (5-19); ASPARTATE AMINO TRANSFERASE 16 U/L (14-36); BILIRUBIN,DIRECT 0.2 mg/dL (0.0-0.4); BLOOD UREA NITROGEN 17 mg/dL (7-20); CALCIUM 8.7 mg/dL (8.4-10.2); CARBON DIOXIDE 26 mmol/L (22-30); CHLORIDE 106 mmol/L (98-107); CHOLESTEROL 161.08 mg/dL (0-200); GLUCOSE 100 mg/dL (75-110); POTASSIUM 4.1 mmol/L (3.6-5.0); TOTAL PROTEIN 5.7 g/dL (6.3-8.2); TRIGLYCERIDES 68 mg/dL (<150)
[2020-01-06 05:59] LABS: DIRECT LDL 91 mg/dL (<100)
[2020-01-06] MEDS: PANTOPRAZOLE SODIUM 40 MG TABLET.DR PO SCH ×2 (07:00→17:02)
[2020-01-06] MEDS: HEPARIN SOD (PORCINE) 5,000 UNIT/ML 1 ML VIAL SUBCUT SCH ×3 (07:00→22:46)
[2020-01-06] MEDS: BUSPIRONE HCL 10 MG TABLET PO SCH ×2 (10:12→22:46)
--- NOTE | 2020-01-06 10:12 | PDOC PROGRESS REPORT ---
Subjective Progress Note for:: 01/06/20 Subjective:: 79 year old female with history of dementia, anxiety disorder lives in a half-way brought to the emergency room with right knee swelling associated with redness and a blackish discoloration of the skin on the right knee. Patient was here 10 days ago at that time venous Doppler was done which was negative, CT of the lower extremity was done negative for abscess negative for fracture. Patient failed outpatient antibiotic therapy. Patient unable to give any i nformation because of dementia. Most of the information is obtained from ER medical records. I tried to call the family members to get further information but unable to leave a message. 01/06/20-patient admitted with right knee septic arthritis. On cefepime and vancomycin. WBC came down to 8700, blood pressures are stable. Erythema around the right knee is improving. Orthopedic team on board. m RI of the right lower extremity is pending at this time. Reason For Visit: SEPTIC ARTHRITIS Physical Exam Vital Signs: Temp Pulse Resp BP Pulse Ox 98.4 F 70 16 119/82 98 01/06/20 08:02 01/06/20 08:02 01/06/20 08:02 01/06/20 08:02 01/06/20 08:02 Intake & Output 01/05/20 01/06/20 01/07/20 06:59 06:59 06:59 Intake Total 50 Output Total 750 Balance -700 Weight 79 kg General appearance: PRESENT: no acute distress, well-developed Head exam: PRESENT: atraumatic Eye exam: PRESENT: PERRLA Ear exam: PRESENT: normal external ear exam Mouth exam: PRESENT: neck supple Teeth exam: PRESENT: poor dentation Neck exam: ABSENT: carotid bruit, JVD, lymphadenopathy, thyromegaly Respiratory exam: PRESENT: clear to auscultation cipriano. ABSENT: rales, rhonchi, wheezes Cardiovascular exam: PRESENT: RRR. ABSENT: diastolic murmur, rubs, systolic murmur GI/Abdominal exam: PRESENT: normal bowel sounds, soft. ABSENT: distended, guarding, mass, organolmegaly, rebound, tenderness Rectal exam: PRESENT: deferred Extremities exam: PRESENT: full ROM. ABSENT: calf tenderness, clubbing, pedal edema Neurological exam: PRESENT: CN II-XII grossly intact, other - Patient has advanced dementia Psychiatric exam: PRESENT: appropriate affect, normal mood. ABSENT: homicidal ideation, suicidal ideation Results Laboratory Results: 01/06/20 04:51 01/06/20 04:51 01/05/20 01/05/20 01/05/20 12:04 12:04 18:17 WBC 10.3 RBC 3.85 Hgb 12.5 Hct 36.0 MCV 94 MCH 32.4 MCHC 34.7 RDW 13.6 Plt Count 270 Seg Neutrophils % 63.9 Sodium 139.8 Potassium 4.4 Chloride 103 Carbon Dioxide 29 Anion Gap 8 BUN 14 Creatinine 0.71 Est GFR ( Amer) > 60 Glucose 97 Lactic Acid 2.2 H Calcium 9.3 Magnesium Total Bilirubin AST Alkaline Phosphatase C-Reactive Protein 16.7 H Total Protein Albumin Triglycerides Cholesterol LDL Cholesterol Direct VLDL Cholesterol HDL Cholesterol TSH Urine Color Urine Appearance Urine pH Ur Specific [place] Urine Protein Urine Glucose (UA) Urine Ketones Urine Blood Urine RBC (Auto) 01/05/20 01/06/20 01/06/20 23:24 04:51 04:51 WBC 8.7 RBC 3.47 L Hgb 11.5 L Hct 32.5 L MCV 94 MCH 33.1 MCHC 35.3 RDW 13.3 Plt Count 254 Seg Neutrophils % 64.9 Sodium 138.4 Potassium 4.1 Chloride 106 Carbon Dioxide 26 Anion Gap 6 BUN 17 Creatinine 0.71 Est GFR ( Amer) > 60 Glucose 100 Lactic Acid Calcium 8.7 Magnesium 2.1 Total Bilirubin 1.0 AST 16 Alkaline Phosphatase 88 C-Reactive Protein Total Protein 5.7 L Albumin 3.3 L Triglycerides 68 Cholesterol 161.08 LDL Cholesterol Direct 91 VLDL Cholesterol 14.0 HDL Cholesterol 55 TSH Urine Color YELLOW Urine Appearance SLIGHTLY-CLOUDY Urine pH 7.0 Ur Specific [place] 1.015 Urine Protein NEGATIVE Urine Glucose (UA) NEGATIVE Urine Ketones NEGATIVE Urine Blood NEGATIVE Urine RBC (Auto) 0 01/06/20 04:51 WBC RBC Hgb Hct MCV MCH MCHC RDW Plt Count Seg Neutrophils % Sodium Potassium Chloride Carbon Dioxide Anion Gap BUN Creatinine Est GFR ( Amer) Glucose Lactic Acid Calcium Magnesium Total Bilirubin AST Alkaline Phosphatase C-Reactive Protein Total Protein Albumin Triglycerides Cholesterol LDL Cholesterol Direct VLDL Cholesterol HDL Cholesterol TSH 3.24 Urine Color Urine Appearance Urine pH Ur Specific [place] Urine Protein Urine Glucose (UA) Urine Ketones Urine Blood Urine RBC (Auto) 01/06/20 04:51 NT-Pro-B Natriuret Pep 468 H Impressions: Knee X-Ray 01/05/20 11:53 IMPRESSION: SOFT TISSUE SWELLING. NO SIGNIFICANT BONY FINDINGS. Assessment and Plan - Diagnosis (1) Septic arthritis Is this a current diagnosis for this admission?: Yes Plan: 01/05/2020-patient is going to be admitted to [facility] for septic arthritis of the right knee. Started on IV cefepime and IV vancomycin. Pharmacy to dose the IV vancomycin. Blood cultures wound cultures urine cultures are requested. GI prophylaxis DVT prophylaxis initiated. MRI of the right lower extremity is requested to rule out abscess and septic arthritis. 01/06/2020-patient admitted with right knee septic arthritis on cefepime and vancomycin. WBC improved to 8.7. Afebrile. Blood pressures are stable. Orthopedic team on board. Blood cultures are pending at this time. Wound cultures are pending. MRI right knee is pending. (2) Dementia Qualifiers: Dementia type: unspecified type Dementia behavioral disturbance: with behav ioral disturbance Qualified Code(s): F03.91 - Unspecified dementia with b ehavioral disturbance Is this a current diagnosis for this admission?: No Plan: 01/05/2020-patient has history of dementia plan is to continue donezepil at this time. (3) Hypertension Qualifiers: Hypertension type: essential hypertension Qualified Code(s): I10 - Essential (primary) hypertension Is this a current diagnosis for this admission?: No Plan: 01/05/2020-patient has history of chronic essential hypertension plan is to resume the home medications. 01/06/2020-patient has history of chronic essential hypertension blood pressure today's 119/82. Stable. (4) Sepsis Is this a current diagnosis for this admission?: Yes Plan: 01/05/2020-patient came in with right knee septic arthritis most likely with underlying sepsis. Blood cultures wound cultures are requested, started on IV fluids normal saline 75 cc/h, lactic acid level was requested. Started on IV cefepime and vancomycin at this time. 01/06/2020-patient admitted with right knee septic arthritis, on IV cefepime and vancomycin. Her WBC is 8700 blood cultures are pending. MRI of the right knee is pending at this time. - Time Anticipated Discharge Disposition: Senior Care Facility Anticipated Discharge Timeframe: within 72 hours
[2020-01-06] MEDS: LETROZOLE 2.5 MG TABLET PO SCH (10:13)
[2020-01-06] MEDS: DIVALPROEX SODIUM 125 MG CAP.SPRINK PO SCH ×2 (10:14→22:46)
[2020-01-06] MEDS: CEFEPIME 1 GM/D5W RTU 1 GM/50 ML RTUPB IV SCH ×2 (10:14→22:47)
[2020-01-06] MEDS: NORMAL SALINE 1000 ML 1,000 ML IV PRN (12:29)
[2020-01-06] MEDS: DONEPEZIL HCL 5 MG TABLET PO SCH (22:46)
[2020-01-06] MEDS: MELATONIN 3 MG TABLET PO SCH (22:46)
[2020-01-07] MEDS: NORMAL SALINE 1000 ML 1,000 ML IV PRN (05:17)
[2020-01-07] MEDS: PANTOPRAZOLE SODIUM 40 MG TABLET.DR PO SCH ×2 (05:17→16:34)
[2020-01-07] MEDS: HEPARIN SOD (PORCINE) 5,000 UNIT/ML 1 ML VIAL SUBCUT SCH ×3 (05:17→22:06)
[2020-01-07] MEDS: BUSPIRONE HCL 10 MG TABLET PO SCH ×2 (09:47→22:03)
[2020-01-07] MEDS: LETROZOLE 2.5 MG TABLET PO SCH (09:48)
[2020-01-07] MEDS: CEFEPIME 1 GM/D5W RTU 1 GM/50 ML RTUPB IV SCH ×2 (09:49→22:05)
[2020-01-07] MEDS: DIVALPROEX SODIUM 125 MG CAP.SPRINK PO SCH ×2 (09:49→22:05)
--- NOTE | 2020-01-07 13:07 | PDOC PROGRESS REPORT ---
Subjective Progress Note for:: 01/07/20 Subjective:: Very pleasant but extremely demented. Has no complaints. He does not complain of any knee or leg pain. Still with swelling over the left knee and erythema on the leg that appears to be fading. Reason For Visit: SEPTIC ARTHRITIS Physical Exam Vital Signs: Temp Pulse Resp BP Pulse Ox 97.4 F 51 L 17 147/53 H 97 01/07/20 08:19 01/07/20 08:19 01/07/20 08:19 01/07/20 08:19 01/07/20 08:19 Intake & Output 01/06/20 01/07/20 01/08/20 06:59 06:59 06:59 Intake Total 50 3376 Output Total 750 1250 Balance -700 2126 Weight 79 kg 69.1 kg General appearance: PRESENT: no acute distress, cooperative, well-developed Head exam: PRESENT: atraumatic, normocephalic Ear exam: PRESENT: normal external ear exam. ABSENT: bleeding, drainage Mouth exam: PRESENT: moist, tongue midline Respiratory exam: PRESENT: symmetrical, unlabored. ABSENT: clear to auscultation cipriano, rales, rhonchi, tachypnea, wheezes Cardiovascular exam: PRESENT: RRR, +S1, +S2 GI/Abdominal exam: PRESENT: normal bowel sounds, soft. ABSENT: distended, tenderness Rectal exam: PRESENT: deferred Gentrourinary exam: PRESENT: other - Purewick urine collection system in place Extremities exam: PRESENT: other - Large swelling on the yary-lateral aspect of the right knee. Betadine from recent aspiration. The area is fluctuant. She denies tenderness on the lower leg. Anteriorly the erythema seems to have resolved but the lateral portion there is still discoloration and the skin is still warmer than the surrounding skin.. ABSENT: pedal edema Musculoskeletal exam: PRESENT: deformity - Right knee swelling. ABSENT: ambulatory Neurological exam: PRESENT: alert, awake, oriented to person. ABSENT: oriented to place, oriented to situation Psychiatric exam: PRESENT: appropriate affect. ABSENT: agitated, anxious Focused psych exam: ABSENT: delusional, paranoid, restlessness Skin exam: PRESENT: dry, normal color, warm. ABSENT: rash Results Laboratory Results: 01/06/20 04:51 01/06/20 04:51 01/06/20 04:51 NT-Pro-B Natriuret Pep 468 H Impressions: Knee X-Ray 01/05/20 11:53 IMPRESSION: SOFT TISSUE SWELLING. NO SIGNIFICANT BONY FINDINGS. Assessment and Plan - Diagnosis (1) Hematoma of right knee region Is this a current diagnosis for this admission?: Yes Plan: Patient seen by orthopedic surgery. Hematoma was drained to some degree. There is still significant swelling. The area is soft. Orthopedist recommendation is to allow the hematoma to heal on its own. They do not feel there was any septic arthritis. (2) Cellulitis of right leg Is this a current diagnosis for this admission?: Yes Plan: Erythema is improving. Complete antibiotic therapy. (3) Dementia Qualifiers: Dementia type: Alzheimer's disease Alzheimer's disease onset: unspecified onset Dementia behavioral disturbance: without behavioral disturbance Qualified Code(s): G30.9 - Alzheimer's disease, unspecified; F02.80 - Dementia in other diseases classified elsewhere without behavioral disturbance Is this a current diagnosis for this admission?: Yes Plan: Severely demented. Very pleasant. Continue donepezil, Depakote and BuSpar. (4) Hypertension Qualifiers: Hypertension type: unspecified Qualified Code(s): I10 - Essential (primary) hypertension Is this a current diagnosis for this admission?: Yes Plan: Blood pressure was elevated on admission. The blood pressure is settling down. No need for medication intervention at this time. (5) Septic arthritis Qualifiers: Septic arthritis location: knee Is this a current diagnosis for this admission?: Yes Plan: Ruled out by orthopedic surgery. - Time Time Spent with patient: 15-24 minutes Medications reviewed and adjusted accordingly: Yes Anticipated Discharge Disposition: Emergency [facility]ist Care Facility Anticipated Discharge Timeframe: within 72 hours
--- NOTE | 2020-01-07 18:28 | RADIOLOGY REPORT (SQ) ---
EXAM DESCRIPTION: MRI RT LOWER JOINT WITHOUT IMAGES COMPLETED DATE/TIME: 01/07/2020 1:42 pm REASON FOR STUDY: rt knee septic arthritis COMPARISON: CT right knee, 12/26/2019. Right knee radiograph 01/05/2020. TECHNIQUE: Rightknee images acquired and stored on PACS. Multiplanar images include fat sensitive s equences as T1, water sensitive sequences as FST2 or STIR, cartilage sensitive sequences as FSPD, and gradient echo sequences. LIMITATIONS: None. FINDINGS: JOINT AND BURSAE: There is a large fluid collection in the medial prepatellar bursa with h eterogeneous septated appearance, predominantly hyperintense T2 with mixed heterogeneous hyperintense and hypointense T1 signal measuring 7.7 x 3.0 by 11.2 cm. This demonstrates internal septations and heterogeneous debris with some blooming artifact of the septations, highly suggestive of a large hem atoma. This is contained within the subcutaneous soft tissues with probable involvement of the prepa tellar bursa. Minimal surrounding edema. No knee joint effusion. Joint effusion. BONE CORTEX AND MARROW: There is bone marrow edema in the lateral tibial plateau. No fracture line. ACL: Intact. Mild myxoid degeneration degeneration. No ganglion cyst. PCL: Intact. MCL: Intact. No periligamentous edema or fluid. LCL: Intact. No periligamentous edema or fluid. MEDIAL MENISCUS: No tears. No abnormal signal. LATERAL MENISCUS: All tear of the lateral forearm of the lateral meniscus. MEDIAL COMPARTMENT: Mild abnormal cartilage signal with focal high-signal consistent with mild degene rative change. No bone bruises or reactive marrow edema. No osteophytes. LATERAL COMPARTMENT: Cartilage preserved. There is reactive edema in the anterior lateral tibial sandra teau. No osteophytes. PATELLA: No chondromalacia. No subchondral cysts. Medial and lateral retinacula intact. EXTENSOR MECHANISM: Intact. Quadriceps and patella tendons normal. SOFT TISSUES: Adjacent muscles and subcutaneous tissues normal. Normal flow void in popliteal artery and vein. OTHER: No other significant finding. IMPRESSION: Heterogeneous mixed signal mass in the medial right prepatellar bursa and subcutaneous s oft tissues, most consistent with a large subcutaneous hematoma. Given the internal septations, a so ft tissue mass with cystic component is not entirely excluded. Clinical correlation for recent injur y recommended. If there is been no recent injury or is been slow growing or present for a long time, further evaluation with contrast-enhanced MRI or CT may provide additional information. There is no knee joint effusion. TECHNICAL DOCUMENTATION: JOB ID: [id number] 2010 [employer]- All Rights Reserved Reading location - IP/workstation name: [email or web address]
[2020-01-07] MEDS: MELATONIN 3 MG TABLET PO SCH (22:03)
[2020-01-07] MEDS: DONEPEZIL HCL 5 MG TABLET PO SCH (22:03)
[2020-01-08] MEDS: PANTOPRAZOLE SODIUM 40 MG TABLET.DR PO SCH ×2 (05:10→18:06)
[2020-01-08] MEDS: HEPARIN SOD (PORCINE) 5,000 UNIT/ML 1 ML VIAL SUBCUT SCH ×3 (05:10→22:07)
[2020-01-08] MEDS: NORMAL SALINE 1000 ML 1,000 ML IV PRN ×2 (05:12→18:06)
[2020-01-08] MEDS: BUSPIRONE HCL 10 MG TABLET PO SCH ×2 (09:53→22:06)
[2020-01-08] MEDS: CEFEPIME 1 GM/D5W RTU 1 GM/50 ML RTUPB IV SCH ×2 (09:54→22:07)
[2020-01-08] MEDS: DIVALPROEX SODIUM 125 MG CAP.SPRINK PO SCH ×2 (09:59→22:07)
[2020-01-08] MEDS: LETROZOLE 2.5 MG TABLET PO SCH (09:59)
--- NOTE | 2020-01-08 11:06 | PDOC PROGRESS REPORT ---
Subjective Progress Note for:: 01/08/20 Subjective:: Patient is resting comfortably. Again because of her dementia she is not an accurate historian. She does not report any complaints. Reason For Visit: SEPTIC ARTHRITIS Physical Exam Vital Signs: Temp Pulse Resp BP Pulse Ox 98.0 F 54 L 20 126/55 H 97 01/08/20 10:00 01/08/20 09:02 01/08/20 09:02 01/08/20 09:02 01/08/20 09:02 Intake & Output 01/07/20 01/08/20 01/09/20 06:59 06:59 06:59 Intake Total 3376 1458 Output Total 1250 1550 Balance 2126 -92 Weight 69.1 kg 67.9 kg General appearance: PRESENT: no acute distress, cooperative, well-developed Head exam: PRESENT: atraumatic, normocephalic Respiratory exam: PRESENT: clear to auscultation cipriano, unlabored. ABSENT: rales, rhonchi, tachypnea, wheezes Cardiovascular exam: PRESENT: RRR, +S1, +S2. ABSENT: bradycardia, diastolic murmur, irregular rhythm, systolic murmur, tachycardia GI/Abdominal exam: PRESENT: normal bowel sounds, soft. ABSENT: distended, guarding, tenderness Rectal exam: PRESENT: deferred Extremities exam: PRESENT: joint swelling - Right knee. ABSENT: pedal edema Neurological exam: PRESENT: alert, awake, oriented to person, CN II-XII grossly intact. ABSENT: oriented to place, oriented to time, oriented to situation Psychiatric exam: PRESENT: appropriate affect. ABSENT: agitated, anxious Focused psych exam: ABSENT: delusional, paranoid, restlessness Skin exam: PRESENT: dry, normal color, warm Results Laboratory Results: 01/06/20 04:51 01/06/20 04:51 01/06/20 04:51 NT-Pro-B Natriuret Pep 468 H Impressions: Knee X-Ray 01/05/20 11:53 IMPRESSION: SOFT TISSUE SWELLING. NO SIGNIFICANT BONY FINDINGS. Lower Extremity MRI 01/07/20 00:00 IMPRESSION: Heterogeneous mixed signal mass in the medial right prepatellar bursa and subcutaneous soft tissues, most consistent with a large subcutaneous hematoma. Given the internal septations, a soft tissue mass with cystic component is not entirely excluded. Clinical correlation for recent injury recommended. If there is been no recent injury or is been slow growing or present for a long time, further evaluation with contrast-enhanced MRI or CT may provide additional information. There is no knee joint effusion. Assessment and Plan - Diagnosis (1) Hematoma of right knee region Is this a current diagnosis for this admission?: Yes Plan: Continue conservative care. Will order warm compresses as well. (2) Cellulitis of right leg Is this a current diagnosis for this admission?: Yes Plan: Improved. May be able to change to oral antibiotic at discharge. (3) Dementia Qualifiers: Dementia type: Alzheimer's disease Alzheimer's disease onset: unspecified onset Dementia behavioral disturbance: without behavioral disturbance Qualified Code(s): G30.9 - Alzheimer's disease, unspecified; F02.80 - Dementia in other diseases classified elsewhere without behavioral disturbance Is this a current diagnosis for this admission?: Yes Plan: Stable. Continue current medications. No behavioral issues. (4) Hypertension Qualifiers: Hypertension type: unspecified Qualified Code(s): I10 - Essential (primary) hypertension Is this a current diagnosis for this admission?: Yes Plan: Blood pressure remains within a reasonable range. No acute intervention with medication at this time. (5) Septic arthritis Qualifiers: Septic arthritis location: knee Is this a current diagnosis for this admission?: Yes Plan: Ruled out by orthopedic surgery. - Time Time Spent with patient: 15-24 minutes Medications reviewed and adjusted accordingly: Yes Anticipated Discharge Disposition: [facility] Anticipated Discharge Timeframe: within 48 hours
[2020-01-08] MEDS: DONEPEZIL HCL 5 MG TABLET PO SCH (22:05)
[2020-01-08] MEDS: MELATONIN 3 MG TABLET PO SCH (22:05)
[2020-01-09] MEDS: PANTOPRAZOLE SODIUM 40 MG TABLET.DR PO SCH ×2 (06:39→16:50)
[2020-01-09] MEDS: HEPARIN SOD (PORCINE) 5,000 UNIT/ML 1 ML VIAL SUBCUT SCH ×3 (06:39→22:25)
[2020-01-09 07:15] LABS: HEMATOCRIT 31.3 % (36.0-47.0); HEMOGLOBIN 11.2 g/dL (12.0-15.5); MEAN CORPUSCULAR HEMOGLOBIN 33.5 pg (27.0-33.4); MEAN CORPUSCULAR HGB CONC 35.8 g/dL (32.0-36.0); MEAN CORPUSCULAR VOLUME 94 fl (80-97); PLATELET COUNT 234 10^3/uL (150-450); RED BLOOD COUNT 3.35 10^6/uL (3.72-5.28); RED CELL DISTRIBUTION WIDTH 13.2 % (11.5-14.0); WHITE BLOOD COUNT 7.5 10^3/uL (4.0-10.5)
[2020-01-09 07:44] LABS: ANION GAP 6 (5-19); BLOOD UREA NITROGEN 14 mg/dL (7-20); CALCIUM 8.7 mg/dL (8.4-10.2); CARBON DIOXIDE 26 mmol/L (22-30); CHLORIDE 108 mmol/L (98-107); GLUCOSE 101 mg/dL (75-110); POTASSIUM 4.1 mmol/L (3.6-5.0)
[2020-01-09] MEDS: BUSPIRONE HCL 10 MG TABLET PO SCH ×2 (10:21→22:24)
[2020-01-09] MEDS: DIVALPROEX SODIUM 125 MG CAP.SPRINK PO SCH ×2 (10:22→22:25)
[2020-01-09] MEDS: LETROZOLE 2.5 MG TABLET PO SCH (10:22)
[2020-01-09] MEDS: CEFEPIME 1 GM/D5W RTU 1 GM/50 ML RTUPB IV SCH ×2 (10:22→22:28)
[2020-01-09] MEDS: NORMAL SALINE 1000 ML 1,000 ML IV PRN (10:29)
--- NOTE | 2020-01-09 10:35 | PDOC DISCHARGE SUMMARY ---
Impression - Admit/DC Date/PCP Admission Date/Primary Care Provider: 01/05/20 15:56 Discharge Date: 01/09/20 - Discharge Diagnosis (1) Hematoma of right knee region Is this a current diagnosis for this admission?: Yes (2) Cellulitis of right leg Is this a current diagnosis for this admission?: Yes (3) Dementia Is this a current diagnosis for this admission?: Yes (4) Hypertension Is this a current diagnosis for this admission?: Yes (5) Septic arthritis Is this a current diagnosis for this admission?: No - Assessment Summary: Patient presented with swelling of the right knee. She was seen by orthopedic surgery. It is not septic arthritis rather it is a large hematoma. The patient had erythema in the lower leg. Possible cellulitis versus inflammation distal to the hematoma. She did complete a course of antibiotic therapy. - Additional Information Resuscitation Status: Full Code Discharge Diet: Regular Discharge Activity: Activity As Tolerated Home Medications: Buspirone HCl [Buspar 15 mg Tablet] 15 mg PO Q12 05/24/18 Donepezil HCl [Aricept 5 mg Tablet] 10 mg PO QHS 05/24/18 Letrozole [Femara 2.5 mg Tablet] 2.5 mg PO DAILY 05/24/18 Cholecalciferol (Vitamin D3) [Vitamin D3] 1,250 mcg PO FR@1000 12/26/19 Divalproex Sodium [Depakote Sprinkle 125 mg Capsule] 125 mg PO Q12 12/26/19 Melatonin [Melatonin 3 mg Tablet] 6 mg PO QHS 12/26/19 History of Present Illiness History of Present Illness: CHINTAN PEGUERO is a 79 year old female with history of dementia, anxiety disorder lives in a retirement brought to the emergency room with right knee swelling associated with redness and a blackish discoloration of the skin on the right knee. Patient was here 10 days ago at that time venous Doppler was done which was negative, CT of the lower extremity was done negative for abscess negative for fracture. Patient failed outpatient antibiotic therapy. Patient unable to give any information because of dementia. Most of the information is obtained from ER medical records. I tried to call the family members to get further information but unable to leave a message. Hospital Course Hospital Course: Benign hospital course. Orthopedic surgery saw the patient and deemed the sw elling in the knee a hematoma and not septic arthritis. There was question of cellulitis in the lower leg and the patient did receive a short course of antibiotic therapy. There is no need for ongoing antibiotics after discharge. The patient is not complaining of any pain. We have ordered home health when she is back at the [facility] for ongoing physical therapy. Physical Exam Vital Signs: Temp Pulse Resp BP Pulse Ox 98.2 F 55 L 13 137/54 H 97 01/09/20 07:12 01/09/20 07:12 01/09/20 07:12 01/09/20 07:12 01/09/20 07:12 Intake & Output 01/08/20 01/09/20 01/10/20 06:59 06:59 06:59 Intake Total 1458 1168 1000 Output Total 1550 2000 Balance -92 -832 1000 Weight 67.9 kg 67 kg General appearance: PRESENT: no acute distress, well-developed Head exam: PRESENT: atraumatic, normocephalic Respiratory exam: PRESENT: clear to auscultation cipriano, symmetrical, unlabored. ABSENT: rales, rhonchi, tachypnea, wheezes Cardiovascular exam: PRESENT: bradycardia - With occasional irregular beat, +S1, +S2, systolic murmur - 2/6 GI/Abdominal exam: PRESENT: normal bowel sounds, soft. ABSENT: tenderness Extremities exam: PRESENT: joint swelling - Still with large hematoma right anterior medial knee Musculoskeletal exam: PRESENT: ambulatory - With assistance per physical therapy assessment Neurological exam: PRESENT: alert, awake, oriented to person - Responds to her name but otherwise not oriented. ABSENT: oriented to place, oriented to time, oriented to situation Psychiatric exam: PRESENT: appropriate affect. ABSENT: agitated, anxious Results Laboratory Results: WBC 7.5 10^3/uL (4.0-10.5) 01/09/20 07:04 RBC 3.35 10^6/uL (3.72-5.28) L 01/09/20 07:04 Hgb 11.2 g/dL (12.0-15.5) L 01/09/20 07:04 Hct 31.3 % (36.0-47.0) L 01/09/20 07:04 MCV 94 fl (80-97) 01/09/20 07:04 MCH 33.5 pg (27.0-33.4) H 01/09/20 07:04 MCHC 35.8 g/dL (32.0-36.0) 01/09/20 07:04 RDW 13.2 % (11.5-14.0) 01/09/20 07:04 Plt Count 234 10^3/uL (150-450) 01/09/20 07:04 Lymph % (Auto) 23.1 % (13-45) 01/06/20 04:51 Bladen % (Auto) 9.4 % (3-13) 01/06/20 04:51 Eos % (Auto) 2.0 % (0-6) 01/06/20 04:51 Baso % (Auto) 0.6 % (0-2) 01/06/20 04:51 Absolute Neuts (auto) 5.6 10^3/uL (1.7-8.2) 01/06/20 04:51 Absolute Lymphs (auto) 2.0 10^3/uL (0.5-4.7) 01/06/20 04:51 Absolute Monos (auto) 0.8 10^3/uL (0.1-1.4) 01/06/20 04:51 Absolute Eos (auto) 0.2 10^3/uL (0.0-0.6) 01/06/20 04:51 Absolute Basos (auto) 0.1 10^3/uL (0.0-0.2) 01/06/20 04:51 Seg Neutrophils % 64.9 % (42-78) 01/06/20 04:51 PT 14.6 SEC (11.4-15.4) 01/06/20 04:51 INR 1.12 01/06/20 04:51 Sodium 139.6 mmol/L (137-145) 01/09/20 07:04 Potassium 4.1 mmol/L (3.6-5.0) 01/09/20 07:04 Chloride 108 mmol/L (98-107) H 01/09/20 07:04 Carbon Dioxide 26 mmol/L (22-30) 01/09/20 07:04 Anion Gap 6 (5-19) 01/09/20 07:04 BUN 14 mg/dL (7-20) 01/09/20 07:04 Creatinine 0.68 mg/dL (0.52-1.25) 01/09/20 07:04 Est GFR ( Amer) > 60 (>60) 01/09/20 07:04 Est GFR (MDRD) Non-Af > 60 (>60) 01/09/20 07:04 Glucose 101 mg/dL (75-110) 01/09/20 07:04 Hemoglobin A1c % 4.9 % (4.7-6.0) 01/06/20 04:51 Lactic Acid 2.2 mmol/L (0.7-2.1) H 01/05/20 18:17 Calcium 8.7 mg/dL (8.4-10.2) 01/09/20 07:04 Magnesium 2.2 mg/dL (1.6-2.3) 01/09/20 07:04 Total Bilirubin 1.0 mg/dL (0.2-1.3) 01/06/20 04:51 Direct Bilirubin 0.2 mg/dL (0.0-0.4) 01/06/20 04:51 Neonat Total Bilirubin Not Reportable 01/06/20 04:51 Neonat Direct Bilirubin Not Reportable 01/06/20 04:51 Neonat Indirect Bili Not Reportable 01/06/20 04:51 AST 16 U/L (14-36) 01/06/20 04:51 ALT 8 U/L (<35) 01/06/20 04:51 Alkaline Phosphatase 88 U/L (38-126) 01/06/20 04:51 C-Reactive Protein 16.7 mg/L (<10.0) H 01/05/20 12:04 NT-Pro-B Natriuret Pep 468 pg/mL (<450) H 01/06/20 04:51 Total Protein 5.7 g/dL (6.3-8.2) L 01/06/20 04:51 Albumin 3.3 g/dL (3.5-5.0) L 01/06/20 04:51 Triglycerides 68 mg/dL (<150) 01/06/20 04:51 Cholesterol 161.08 mg/dL (0-200) 01/06/20 04:51 LDL Cholesterol Direct 91 mg/dL (<100) 01/06/20 04:51 VLDL Cholesterol 14.0 mg/dL (10-31) 01/06/20 04:51 HDL Cholesterol 55 mg/dL (>40) 01/06/20 04:51 TSH 3.24 uIU/mL (0.47-4.68) 01/06/20 04:51 Urine Color YELLOW 01/05/20 23:24 Urine Appearance SLIGHTLY-CLOUDY 01/05/20 23:24 Urine pH 7.0 (5.0-9.0) 01/05/20 23:24 Ur Specific [place] 1.015 01/05/20 23:24 Urine Protein NEGATIVE mg/dL (NEGATIVE) 01/05/20 23:24 Urine Glucose (UA) NEGATIVE mg/dL (NEGATIVE) 01/05/20 23:24 Urine Ketones NEGATIVE mg/dL (NEGATIVE) 01/05/20 23:24 Urine Blood NEGATIVE (NEGATIVE) 01/05/20 23:24 Urine Nitrite (Reflex) NEGATIVE (NEGATIVE) 01/05/20 23:24 Urine Bilirubin NEGATIVE (NEGATIVE) 01/05/20 23:24 Urine Urobilinogen 2.0 mg/dL (<2.0) H 01/05/20 23:24 Leukocyte Esterase Rfl NEGATIVE (NEGATIVE) 01/05/20 23:24 Urine RBC (Auto) 0 /HPF 01/05/20 23:24 Urine WBC (Reflex) 1 /HPF 01/05/20 23:24 Squamous Epi Cells Auto <1 /HPF 01/05/20 23:24 Urine Ascorbic Acid NEGATIVE (NEGATIVE) 01/05/20 23:24 01/06/20 04:51 NT-Pro-B Natriuret Pep 468 H Impressions: Knee X-Ray 01/05/20 11:53 IMPRESSION: SOFT TISSUE SWELLING. NO SIGNIFICANT BONY FINDINGS. Lower Extremity MRI 01/07/20 00:00 IMPRESSION: Heterogeneous mixed signal mass in the medial right prepatellar bursa and subcutaneous soft tissues, most consistent with a large subcutaneous hematoma. Given the internal septations, a soft tissue mass with cystic component is not entirely excluded. Clinical correlation for recent injury recommended. If there is been no recent injury or is been slow growing or present for a long time, further evaluation with contrast-enhanced MRI or CT may provide additional information. There is no knee joint effusion. Plan Health Concerns: Large hematoma in this elderly female. Plan of Treatment: Will need ongoing physical therapy. This will be a bit of a challenge due to her memory loss however she seemed to work well with the physical therapist here at the hospital Goals: Increase ambulation with walker and complete resolution of the hematoma Time Spent: Greater than 30 Minutes Stroke Is this a Stroke Patient?: No Acute Heart Failure - Is this a Heart Failure Patient?: No
[2020-01-09] MEDS: MELATONIN 3 MG TABLET PO SCH (22:24)
[2020-01-09] MEDS: DONEPEZIL HCL 5 MG TABLET PO SCH (22:24)
[2020-01-10] MEDS: NORMAL SALINE 1000 ML 1,000 ML IV PRN (01:30)
[2020-01-10] MEDS: PANTOPRAZOLE SODIUM 40 MG TABLET.DR PO SCH (05:22)
[2020-01-10] MEDS: HEPARIN SOD (PORCINE) 5,000 UNIT/ML 1 ML VIAL SUBCUT SCH (05:22)
[2020-01-10 08:41] VITALS: BP 136/54
[2020-01-10] MEDS ORDERED: ERGOCALCIFEROL (VITAMIN D2) 50000 UNIT (1.25 MG) CAPSULE PO SCH (10:00)
[2020-01-10] MEDS ORDERED: CHOLECALCIFEROL 1250 MCG PO SCH (10:00)
--- NOTE | 2020-01-10 10:08 | Progress Note ---
Provider Note Provider Note: Patient was set to be discharged to the [facility] on 01/09/2020 pending negative COVID blood culture. Her culture is negative. We will discharge her today.
== END 2020-01-10 10:47 | DRG 605 ==
LOC: ER 10:55 → EH 15:56 → 5 21:20
PROVIDERS: ADMIT Internal Medicine; ATTEND Hospitalist
PROC: 0S9C3ZX Drainage of Right Knee Joint, Percutaneous Approach, Diagnostic (ICD-10-PCS; principal; 2020-01-05)
DX: S80.01XA Contusion of right knee, initial encounter (principal); L03.115 Cellulitis of right lower limb; I10 Essential (primary) hypertension; G30.9 Alzheimer's disease, unspecified; F02.80 Dementia in other diseases classified elsewhere, unspecified severity, without behavioral disturbance, psychotic disturbance, mood disturbance, and anxiety; F41.9 Anxiety disorder, unspecified; W19.XXXA Unspecified fall, initial encounter; Y93.89 Activity, other specified; Y92.098 Other place in other non-institutional residence as the place of occurrence of the external cause; Z85.3 Personal history of malignant neoplasm of breast; Z20.828 Contact with and (suspected) exposure to other viral communicable diseases
CPT/HCPCS: 36415; 80048; 80053; 80061; 81001; 83036; 83605; 83735; 83880; 84443; 85025; 85027; 85610; 86140; 87040; 87635; 96365; 96375; 99285; C9803; J0692; J1644; J2543; J3370; J3490; J7030

== ENCOUNTER 2020-01-28 12:49 | Emergency (ER) | payer MEDICARE, OTHER ==
--- NOTE | 2020-01-28 14:21 | RADIOLOGY REPORT (SQ) ---
EXAM DESCRIPTION: KNEE RIGHT 2 VIEWS IMAGES COMPLETED DATE/TIME: 01/28/2020 2:12 pm REASON FOR STUDY: bed 17 pain and inflammation COMPARISON: 01/05/2020 NUMBER OF VIEWS: Two views. TECHNIQUE: AP and lateral radiographic images acquired of the right knee. LIMITATIONS: None. FINDINGS: MINERALIZATION: Normal. BONES: No acute fracture or dislocation. No worrisome bone lesions. JOINT: Joint effusion. SOFT TISSUES: No soft tissue swelling. No radio-opaque foreign body. OTHER: No other significant finding. IMPRESSION: Joint effusion. No significant degenerative changes. No acute osseous finding. TECHNICAL DOCUMENTATION: JOB ID: [id number] 2010 [employer]- All Rights Reserved Reading location - IP/workstation name: [email or web address]
[2020-01-28 15:44] LABS: ABSOLUTE BASOPHILS # (AUTO) 0.1 10^3/uL (0.0-0.2); ABSOLUTE EOSINOPHILS # (AUTO) 0.1 10^3/uL (0.0-0.6); ABSOLUTE LYMPHOCYTES (AUTO) 1.9 10^3/uL (0.5-4.7); ABSOLUTE MONOCYTES (AUTO) 0.8 10^3/uL (0.1-1.4); ABSOLUTE NEUT (AUTO) 6.1 10^3/uL (1.7-8.2); BASOPHILS % (AUTO) 0.6 % (0-2); HEMATOCRIT 36.5 % (36.0-47.0); HEMOGLOBIN 12.8 g/dL (12.0-15.5); LYMPHOCYTES % (AUTO) 21.4 % (13-45); MEAN CORPUSCULAR HEMOGLOBIN 33.2 pg (27.0-33.4); MEAN CORPUSCULAR HGB CONC 35.1 g/dL (32.0-36.0); MEAN CORPUSCULAR VOLUME 95 fl (80-97); MONOCYTES % (AUTO) 9.1 % (3-13); PLATELET COUNT 215 10^3/uL (150-450); RED BLOOD COUNT 3.86 10^6/uL (3.72-5.28); RED CELL DISTRIBUTION WIDTH 13.5 % (11.5-14.0); SEGMENTED NEUTROPHILS % (AUTO) 67.9 % (42-78); TOTAL CELLS COUNTED % (AUTO) 100 %
[2020-01-28 15:56] LABS: INTERNATIONAL RATION (INR) 0.95; PROTHROMBIN TIME 12.9 SEC (11.4-15.4)
[2020-01-28 16:02] LABS: ALBUMIN 4.2 g/dL (3.5-5.0); ALKALINE PHOSPHATASE 119 U/L (38-126); ANION GAP 5 (5-19); ASPARTATE AMINO TRANSFERASE 20 U/L (14-36); BILIRUBIN,DIRECT 0.3 mg/dL (0.0-0.4); BILIRUBIN,TOTAL 0.4 mg/dL (0.2-1.3); BLOOD UREA NITROGEN 17 mg/dL (7-20); C-REACTIVE PROTEIN 9.4 mg/L (<10.0); CALCIUM 9.5 mg/dL (8.4-10.2); CARBON DIOXIDE 32 mmol/L (22-30); CHLORIDE 103 mmol/L (98-107); GLUCOSE 110 mg/dL (75-110); TOTAL PROTEIN 6.9 g/dL (6.3-8.2)
--- NOTE | 2020-01-28 16:13 | RADIOLOGY REPORT (SQ) ---
EXAM DESCRIPTION: VENOUS UNILATERAL LOWER IMAGES COMPLETED DATE/TIME: 01/28/2020 3:42 pm REASON FOR STUDY: right leg swelling COMPARISON: None. TECHNIQUE: Dynamic and static young scale and color images acquired of the right leg venous system. S elected spectral images acquired with additional compression and augmentation maneuvers. The contrala teral common femoral vein and saphenofemoral junction were also imaged. Images stored on PACS. LIMITATIONS: None. FINDINGS: COMMON FEMORAL: Normal phasicity, compression and augmentation. No visualized echogenic ma terial on young scale. No defects on color images. FEMORAL: Normal compression and augmentation. No visualized echogenic material on young scale. No defe cts on color images. POPLITEAL: Normal compression, augmentation. No visualized echogenic material on young scale. No defec ts on color images. CALF VESSELS: Normal compression, augmentation. No visualized echogenic material on young scale. No de fects on color images. GSV: Normal compression, augmentation. No visualized echogenic material on young scale. No defects on color images. ANY DEEP VENOUS INSUFFICIENCY: Not evaluated. ANY EVIDENCE OF POPLITEAL CYST: No. OTHER: No other significant finding. CONTRALATERAL COMMON FEMORAL VEIN AND SAPHENOFEMORAL JUNCTION: Normal phasicity, compression and augmentation. No visualized echogenic material on young scale. No de fects on color images. IMPRESSION: NO EVIDENCE DVT OR SVT IN THE RIGHT LEG. COMMENT: Preliminary report was called by the technologist to the referring clinician's office at th e time of the exam. TECHNICAL DOCUMENTATION: JOB ID: [id number] 2010 [employer]- All Rights Reserved Reading location - IP/workstation name: [email or web address]
[2020-01-28 16:23] LABS: ERYTHROCYTE SEDIMENTATION RATE 16 mm/hr (0-30)
[2020-01-28 17:07] LABS: CALCIUM PYROPHOSPHATE CRYSTALS NONE OBSERVED; MONOSODIUM URATE CRYSTALS NONE OBSERVED; OTHER CRYSTALS NONE OBSERVED
[2020-01-28 17:26] LABS: FLUID TYPE SYNOVIAL
[2020-01-28 17:27] LABS: FLUID APPEARANCE TURBID; FLUID COLOR RED; FLUID SOURCE KNEE; FLUID VISCOSITY MODERATELY VISCOUS
--- NOTE | 2020-01-28 19:01 | ER Document Report ---
ED Extremity Problem, Lower - General Chief Complaint: Knee Pain Stated Complaint: RIGHT KNEE PAIN Time Seen by Provider: 01/28/20 13:14 Mode of Arrival: Medic Information source: Patient Cannot obtain history due to: Dementia TRAVEL OUTSIDE OF THE [place] IN LAST 30 DAYS: No - HPI Notes: Patient was brought in by ambulance secondary to right knee swelling. Patient has dementia which limits the ability to obtain a history. There is no known injuries. No known history of gout. There is been no fevers. Patient is not on any known blood thinners. Patient cannot describe the type of pain or the severity to me. She is unable to tell me if the pain radiates. She is unable to tell me if the pain is constant or intermittent. - Related Data Allergies/Adverse Reactions: No Known Allergies Allergy (Verified 01/28/20 13:08) Past Medical History - General Information source: Patient, Emergency Med Personnel - Social History Smoking Status: Never Smoker Chew tobacco use (# tins/day): No Frequency of alcohol use: None Drug Abuse: None Family History: None Patient has homicidal ideation: No - Past Medical History Cardiac Medical History: Reports: Hx Hypertension Renal/ Medical History: Denies: Hx Peritoneal Dialysis Malignancy Medical History: Reports: Hx Breast Cancer Psychiatric Medical History: Reports: Hx Dementia, Hx Depression Past Surgical History: Reports: Hx Breast Surgery, Hx Section - Immunizations Immunizations up to date: Yes Hx Diphtheria, Pertussis, Tetanus Vaccination: Yes Review of Systems - Review of Systems -: Yes ROS unobtainable due to patient's medical condition - Cannot obtain review of symptoms due to dementia Physical Exam - Vital signs Vitals: Temp Pulse Resp BP Pulse Ox 98.5 F 79 16 142/98 H 100 01/28/20 12:54 01/28/20 12:54 01/28/20 12:54 01/28/20 12:54 01/28/20 12:54 Interpretation: Normal - General General appearance: Appears well, Alert - HEENT Head: Normocephalic, Atraumatic Eyes: Normal Pupils: PERRL - Respiratory Respiratory status: No respiratory distress Chest status: Nontender Breath sounds: Normal Chest palpation: Normal - Cardiovascular Rhythm: Regular Heart sounds: Normal auscultation Murmur: No - Abdominal Inspection: Normal Distension: No distension Bowel sounds: Normal Tenderness: Nontender Organomegaly: No organomegaly - Back Back: Normal, Nontender - Extremities General upper extremity: Normal inspection, Nontender, Normal color, Normal ROM, Normal temperature General lower extremity: Other - Patient's right knee has an obvious effusion. However the right knee is not tender to palpation. From the knee down to the ankle there is swelling and erythema and definitely has increased temperature. No wounds or ulcerations. Patient does have a large nontender macule on the medial aspect of the right knee. This macule is multicolored and does not appear consistent with cellulitis. - Neurological Cognition: Confused Orientation: Disoriented to place, Disoriented to time Elayne Coma Scale Eye Opening: Spontaneous [place] Coma Scale Verbal: Confused [place] Coma Scale Motor: Obeys Commands [place] Coma Scale Total: 14 - Psychological Associated symptoms: Confused, Psychomotor depression - Skin Skin Temperature: Warm Skin Moisture: Dry Skin Color: Erythema Course - Re-evaluation Re-evalutation: 01/28/20 19:04 Patient presents with nonspecific swelling and increased temperature of the right lower extremity with the right knee effusion. I was able to obtain joint fluid from the right knee which shows no evidence of infection or arthritic crystals. Patient also has no evidence of cellulitis as she has no white count, no fever, no elevated sed rate or elevated C-reactive protein. Patient also has no evidence of DVT by Doppler exam. I can range the knee and palpate the entire length of the right lower extremity and she does not appear to have any significant pain. She also appears to be able to flex and extend the knee w ithout significant pain. Her dementia somewhat limits the ability to obtain a history and exam but it definitely does not appear to be significantly tender. I am unsure what the cause of the swelling and increased warmth is at this time. Despite the fact that she has a normal sed rate, normal white count, normal C- reactive protein and no fever I am going to give the patient a short course of antibiotics in case this is an early occult cellulitis as I am not sure what else would cause the above symptoms. - Vital Signs Vital signs: Temp Pulse Resp BP Pulse Ox 98.5 F 79 16 142/98 H 100 01/28/20 12:54 01/28/20 12:54 01/28/20 12:54 01/28/20 12:54 01/28/20 12:54 - Laboratory Result Diagrams: 01/28/20 15:10 01/28/20 15:10 Laboratory results interpreted by me: 01/28/20 15:10 Carbon Dioxide 32 H - Diagnostic Test Radiology reviewed: Image reviewed, Reports reviewed Discharge - Discharge Clinical Impression: Effusion, right knee Condition: Stable Disposition: HOME, SELF-CARE Instructions: Knee Effusion ([facility]) Additional Instructions: Please have your primary provider recheck your right knee and leg in two days. Prescriptions: Cephalexin Monohydrate [Keflex 500 mg Capsule] 500 mg PO Q6H 7 Days #28 capsule Referrals: JUAN PABLO MONCADA JR, DO [ACTIVE PROVISIONAL STAFF] - Follow up in 3-5 days
[2020-01-28 20:58] VITALS: BP 136/55
== END 2020-01-28 22:01 | disposition home or self-care (01) ==
LOC: ER 12:49
DX: M25.461 Effusion, right knee (principal); F03.90 Unspecified dementia, unspecified severity, without behavioral disturbance, psychotic disturbance, mood disturbance, and anxiety; I10 Essential (primary) hypertension; Z85.3 Personal history of malignant neoplasm of breast
CPT/HCPCS: 36415; 80053; 84550; 85025; 85610; 85652; 86140; 87070; 87075; 87205; 89050; 89060; 93971; 99285

== ENCOUNTER 2020-05-06 15:58 | Emergency (ER) | payer MEDICARE, OTHER ==
--- NOTE | 2020-05-06 16:08 | ER Document Report ---
ED General - General Stated Complaint: FALL Time Seen by Provider: 05/06/20 16:06 Notes: Presents with fall from bed unwitnessed with no apparent trauma no blood thinners. She is at her baseline. EMS to bring her and know her well and said that this is how she typically is. She denies pain when asked. TRAVEL OUTSIDE OF THE [place] IN LAST 30 DAYS: No - Related Data Allergies/Adverse Reactions: No Known Allergies Allergy (Verified 01/28/20 13:08) Past Medical History - General Information source: Emergency Med Personnel - Social History Smoking Status: Unknown if Ever Smoked Family History: None - Past Medical History Cardiac Medical History: Reports: Hx Hypertension Renal/ Medical History: Denies: Hx Peritoneal Dialysis Malignancy Medical History: Reports: Hx Breast Cancer Psychiatric Medical History: Reports: Hx Dementia, Hx Depression Past Surgical History: Reports: Hx Breast Surgery, Hx Section - Immunizations Immunizations up to date: Yes Hx Diphtheria, Pertussis, Tetanus Vaccination: Yes Review of Systems - Review of Systems Notes: REVIEW OF SYSTEMS Angina PHYSICAL EXAMINATION General: No acute distress, well-nourished Head: Atraumatic, normocephalic ENT: Mouth normal, oropharynx moist, no exudates or tonsillar enlargement Eyes: Conjunctiva normal, pupils equal, lids normal Neck: No JVD, supple, no guarding CVS: Normal rate, regular rhythm, no murmurs Resp: No resp distress, equal and normal breath sounds bilaterally GI: Nondistended, soft, no tenderness to palpation, no rebound or guarding Ext: No deformities, no edema, normal range of motion in upper and lower ext Back: No CVA or midline TTP Skin: No rash, warm Lymphatic: No lymphadeopathy noted Neuro: Awake, alert. Face symmetric. Does not know where she is but knows her name. Denies pain moves all extremities equally. Course - Re-evaluation Re-evalutation: 05/06/20 16:10 Fall with no apparent injury no head hematoma no neck tenderness hips arms all range normally without bruising. Stable for discharge back to facility. I have discussed with the patient there likely diagnosis, aftercare plan, follow-up plans and my usual and customary return precautions. They verbalized understanding of this. - Laboratory Results Critical Laboratory Results Reviewed: No Critical Results - Radiology Results Critical Radiology Results Reviewed: No Critical Results Discharge - Discharge Clinical Impression: Fall from bed, initial encounter Condition: Good Disposition: HOME, SELF-CARE Additional Instructions: No injuries were found. Please be careful about falls monitor the patient carefully and have her follow-up with the facility physician within 1 to 2 days.
[2020-05-06 16:37] VITALS: BP 142/65
== END 2020-05-06 16:45 | disposition home or self-care (01) ==
LOC: ER 15:58
DX: F03.90 Unspecified dementia, unspecified severity, without behavioral disturbance, psychotic disturbance, mood disturbance, and anxiety (principal); W06.XXXA Fall from bed, initial encounter; I10 Essential (primary) hypertension; Z85.3 Personal history of malignant neoplasm of breast
CPT/HCPCS: 99283